=== PATIENT | male | born 1935 | race Caucasian/White ===

== ENCOUNTER → 2020-06-10 14:00 | Outpatient (CLI) | payer MEDICARE, OTHER, SELFPAY ==
--- NOTE | 2020-06-10 14:07 | DI.US.S_ITS ---
PROCEDURE: US SCROTUM INDICATIONS: TESTICULAR SWELLING TECHNIQUE: Real-time scanning was performed of the scrotum and testicles, with image documentation. Color and pulse Doppler interrogation was performed of both testicles. COMPARISON: [facility], CT, ABDOMEN W&WO CONTRAST, 09/28/2017, 10:55. FINDINGS: Right: Testicle is normal in size at 4.4 x 2.8 x 2.7 cm, and homogenous in echotexture. There is a 1.2 mm cyst in the epididymal head with mild internal echoes. Epididymis is normal in overall size and morphology. Moderate to large hydroceles. No varicoceles. Overlying scrotal skin is normal in thickness. Left: Testicle is normal in size at 3.8 x 3.4 x 2.3 cm, and homogeneous in echotexture. Epididymis is normal in overall size and morphology. There is a 6 mm complex cyst in the epididymal head. Moderate to large hydroceles. No varicoceles. Overlying scrotal skin is normal in thickness. There is a non reducible left inguinal hernia containing fat. The neck of the hernia measures 9 mm. Doppler: Color and pulse Doppler demonstrate normal and symmetric arterial flow in both testicles. IMPRESSION: 1. Normal testicles bilaterally. No testicular mass or findings to suggest testicular torsion. 2. Bilateral epididymal cysts. 3. [id number] hydroceles bilaterally. 4. Fat containing, non reducible left inguinal hernia. Dictated by: Mario Junior M.D. on 06/10/2020 at 16:41 Approved by: Mario Junior M.D. on 06/10/2020 at 16:47
== END ==
PROVIDERS: PCP Internal Medicine; Referring Provider Physician Assistant; Visit Provider Physician Assistant
DX: N50.89 Other specified disorders of the male genital organs (principal); N50.3 Cyst of epididymis; N43.3 Hydrocele, unspecified; K40.30 Unilateral inguinal hernia, with obstruction, without gangrene, not specified as recurrent
CPT/HCPCS: 76870

== ENCOUNTER 2020-12-25 12:35 | Emergency (ER) | payer MEDICARE, OTHER, SELFPAY ==
[2020-12-25] VITALS (8 sets, daily range): BP systolic 131–181; BP diastolic 70–101; PULSE 78–93; RESP 15–23; TEMP 36.4–36.6; O2SAT 97–98; BMI 30.4
[2020-12-25 12:59] LABS: WBC Urine None Seen (0-5/HPF)
[2020-12-25 13:36] LABS: Appearance Urine UA CLOUDY; Bilirubin Urine UA NEGATIVE (NEGATIVE); Color Urine UA YELLOW; Glucose Urine UA TRACE g/dL (Negative); Ketones Urine UA NEGATIVE (NEGATIVE); Leukocyte Esterase Urine UA NEGATIVE (NEGATIVE); Nitrite Urine UA NEGATIVE (Negative); Occult Blood Urine UA 3+ (Negative); Protein Urine UA 3+ (Negative); Specific Gravity Urine UA 1.025 (1.000-1.035); Urobilinogen Urine UA 0.2 E.U./dL (0.2)
[2020-12-25 13:45] LABS: Amorphous Sediment Urine 2+; Bacteria Urine Moderate (10-30); Culture Indicated Urine Cult Not Indicated; RBC Urine 10-30/HPF (0-5/HPF)
--- NOTE | 2020-12-25 15:57 | ED_ITS ---
HPI - Male Genitourinary General Chief complaint: Urogenital-Male Stated complaint: Back Pain, Lt Side. Kidney Problems Time Seen by Provider: 12/25/20 15:46 Source: patient Mode of arrival: Ambulatory Limitations: no limitations History of Present Illness HPI Narrative: Patient is an 85-year-old male history of coronary artery disease presenting today with left-sided back pain. He says sometimes it is radiating around to his front in his left lower quadrant. According to family they state that he was not quite himself yesterday and today having increased back pain. He denies any fever or chills no nausea or vomiting. He has no numbness or tingling in his lower extremities. No chest pain or shortness of breath. Related Data Home Medications Medication Instructions Recorded Confirmed nitroglycerin 6.5 mg 6.5 mg PO BID #0 10/07/12 06/10/20 capsule,extended release amlodipine 10 mg tablet 10 mg PO DAILY 06/10/20 06/10/20 metoprolol succinate 50 mg 50 mg PO DAILY 06/10/20 06/10/20 tablet,extended release 24 hr (Toprol XL) rivaroxaban 15 mg tablet (Xarelto) 15 mg PO DAILY 06/10/20 06/10/20 telmisartan 40 mg tablet 40 mg PO DAILY 06/10/20 06/10/20 Previous Rx's Medication Instructions Recorded triamcinolone acetonide 0.1 % 1 applic TOPICAL BID 14 Days #30 g 06/10/20 topical cream ciprofloxacin HCl 500 mg tablet 500 mg PO BID #14 tab 12/25/20 (Cipro) hydrocodone 5 mg-acetaminophen 325 1 tab PO Q6H PRN #10 tab 12/25/20 mg tablet Allergies Allergy/AdvReac Type Severity Reaction Status Date / Time cholera vaccine Allergy Unknown Verified 12/25/20 12:50 Review of Systems Review of Systems Narrative: GENERAL: Denies chills, fatigue, malaise, fever, sweats, travel HEENT: Denies sinus pain, ear pain, sore throat, difficulty swallowing, neck pain RESPIRATORY: Denies dyspnea, cough, wheezing, hemoptysis, sputum. CARDIOVASCULAR: Denies chest pain, palpitations, orthopnea, edema GASTROINTESTINAL: Denies nausea, vomiting, abdominal pain, diarrhea, constipation, melena. : Left flank pain MUSCULOSKELETAL: Denies weakness, joint pain, or bony pain SKIN: No rash, no erythema, no pruritus NEUROLOGIC: Denies weakness, dizziness, headache, numbness, change in speech, confusion PSYCHIATRIC: No concerning psychosocial issues. 12 point review of systems is negative except for those stated above and HPI Patient History Medical History Past medical history not known due to adoption Social History Smoking Status: Never smoker Smoking Status: Never smoker alcohol intake frequency: holidays/special occasions only Substance Use Type: does not use Exam Initial Vital Signs Initial Vital Signs: Vital Signs Temperature 97.9 F 12/25/20 12:50 Pulse Rate 78 12/25/20 12:50 Respiratory Rate 18 12/25/20 12:50 Blood Pressure 131/70 12/25/20 12:50 Pulse Oximetry 98 12/25/20 12:50 GENERAL: Alert pleasant 85-year-old male appears uncomfortable and in no acute distress. HEENT: Head atraumatic,EOMI, pupils reactive, face symmetric, moist mucous membranes CARDIOVASCULAR: Regular rate and rhythm without murmurs, rubs or gallops. RESPIRATORY: Breath sounds equal bilaterally, no wheezes rales or rhonchi. ABDOMEN: Soft, left lower quadrant pain no guarding or rebound BACK: No vertebral tenderness no step-off : Mild left CVA tenderness EXTREMITIES: Normal range of motion, no clubbing or edema. Neurovascularly intact NEUROLOGICAL: Alert and oriented x3.Normal gait and speech. SKIN: Warm, dry, no laceration, no petechiae, no rashes or lesions. Course Orders Ordered: ED Orders 12/25/20 12:57 Urinalysis and Microscopic Stat 12/25/20 15:57 CT kidney ureter bladder (KUB) Stat 12/25/20 16:19 EKG-12 Lead Stat 12/25/20 16:45 Complete Blood Count AUTO DIFF Stat Comprehensive Metabolic Panel Stat Lactate (Lactic Acid) Stat Lipase Stat Partial Thromboplastin Time Stat Procalcitonin Stat Prothrombin Time INR Stat Troponin & CK Cardiac Panel Stat 12/25/20 17:40 Blood Culture Stat Discontinued Medications Hydrocodone Bitart/Acetaminophen (Hydrocodone/Acet 5/325 Prepack) 1 bottle MISC SEEINSTR ONE Stop: 12/25/20 18:45 Last Admin: 12/25/20 18:58 Dose: 1 bottle Documented by: TARAN Sodium Chloride (Normal Saline 0.9%) 1,000 mls @ 150 mls/hr IV CONT OWEN Last Infusion: 12/25/20 18:19 Dose: 0 mls/hr Documented by: [email or web address] Admin: 12/25/20 16:30 Dose: 150 mls/hr Documented by: CTR.[email or web address] Levofloxacin (Levofloxacin 250 Mg Tablet) 500 mg PO NOW ONE Stop: 12/25/20 18:45 Last Admin: 12/25/20 18:58 Dose: 500 mg Documented by: KBROTEM Vital Signs Vital signs: Vital Signs - 8 hr 12/25/20 12:50 12/25/20 15:12 12/25/20 16:55 Temperature 97.9 F 97.6 F Pulse Rate 78 83 85 Respiratory Rate 18 18 Blood Pressure 131/70 154/79 H Pulse Oximetry 98 97 98 12/25/20 16:56 12/25/20 17:00 12/25/20 17:30 Temperature Pulse Rate 84 84 87 Respiratory Rate 17 18 23 Blood Pressure 147/83 H 151/82 H 165/79 H Pulse Oximetry 98 98 98 12/25/20 18:00 12/25/20 18:30 Temperature Pulse Rate 87 93 H Respiratory Rate 15 19 Blood Pressure 175/101 H 181/95 H Pulse Oximetry 98 97 MDM - Male Genitourinary Lab Data Result diagrams: 12/25/20 16:45 12/25/20 16:45 Labs: Lab Results 12/25/20 12/25/20 12/25/20 Range/Units 12:57 16:45 16:45 WBC 12.3 H (4.5-11.0) X10^3/uL RBC 5.61 (4.5-5.9) X10^6/uL Hgb 15.8 (13.5-17.5) g/dL Hct 47.9 (41-53) % MCV 85.4 (80-100) fL MCH 28.2 (26-34) PG MCHC 33.1 (30-36) % RDW 14.2 (11.6-14.8) % Plt Count 210 (150-400) X10^3/uL Neut % (Auto) 86.9 H (50-75) % Lymph % (Auto) 7.7 L (25-40) % Allen % (Auto) 5.0 (3-14) % Eos % (Auto) 0.1 L (2-4) % Baso % (Auto) 0.3 (0-2) % Neut # (Auto) 72439 H (6029-7914) /uL Lymph # (Auto) 1000 L (9401-4079) /uL Allen # (Auto) 600 (0-900) /uL Eos # (Auto) 0 (0-450) /uL Baso # (Auto) 0 (0-100) /uL PT 20.4 H (10.1-12.7) SECONDS INR 1.8 H (0.9-1.3) APTT 46 H (26.4-36.2) SECONDS Sodium (137-145) mmol/L Potassium (3.4-5.1) mmol/L Chloride (98-107) mmol/L Carbon Dioxide (22-32) mmol/L BUN (9-20) mg/dL Creatinine (0.66-1.25) mg/dL Estimated GFR (>60) mL/min BUN/Creatinine Ratio (6-22) Glucose (80-110) mg/dL Lactate (0.7-2.1) mmol/L Calcium (8.4-10.2) mg/dL Total Bilirubin (0.2-1.3) mg/dL AST (17-59) IU/L ALT (<50) IU/L Alkaline Phosphatase (38-126) U/L Total Creatine Kinase (55-170) U/L CK-MB (CK-2) CK-MB (CK-2) Rel Index Troponin I (0.01-0.034) ng/mL Total Protein (6.3-8.2) g/dL Albumin (3.5-5.0) g/dL Globulin (1.7-4.1) g/dL Albumin/Globulin Ratio (1.0-2.8) Lipase (23-300) U/L Procalcitonin (<0.5) ng/mL Urine Color Yellow Urine Appearance Cloudy Urine pH 5.0 (4.5-8.0) Ur Specific [place] 1.025 (1.000-1.035) Urine Protein 3+ H (Negative) Urine Glucose (UA) Trace H (Negative) g/dL Urine Ketones Negative (NEGATIVE) Urine Occult Blood 3+ H (Negative) Urine Nitrate Negative (Negative) Urine Bilirubin Negative (NEGATIVE) Urine Urobilinogen 0.2 (0.2) E.U./dL Ur Leukocyte Esterase Negative (NEGATIVE) Urine RBC 10-30/hpf H (0-5/HPF) Urine WBC None seen (0-5/HPF) Amorphous Sediment 2+ Urine Bacteria Moderate (10-30) H (None) Ur Culture Indicated? Cult not indicated 12/25/20 12/25/20 Range/Units 16:45 16:45 WBC (4.5-11.0) X10^3/uL RBC (4.5-5.9) X10^6/uL Hgb (13.5-17.5) g/dL Hct (41-53) % MCV (80-100) fL MCH (26-34) PG MCHC (30-36) % RDW (11.6-14.8) % Plt Count (150-400) X10^3/uL Neut % (Auto) (50-75) % Lymph % (Auto) (25-40) % Allen % (Auto) (3-14) % Eos % (Auto) (2-4) % Baso % (Auto) (0-2) % Neut # (Auto) (7985-7201) /uL Lymph # (Auto) (0257-5139) /uL Allen # (Auto) (0-900) /uL Eos # (Auto) (0-450) /uL Baso # (Auto) (0-100) /uL PT (10.1-12.7) SECONDS INR (0.9-1.3) APTT (26.4-36.2) SECONDS Sodium 141 (137-145) mmol/L Potassium 4.7 (3.4-5.1) mmol/L Chloride 109 H (98-107) mmol/L Carbon Dioxide 21 L (22-32) mmol/L BUN 31 H (9-20) mg/dL Creatinine 2.29 H (0.66-1.25) mg/dL Estimated GFR 27.4 L (>60) mL/min BUN/Creatinine Ratio 13.5 (6-22) Glucose 155 H (80-110) mg/dL Lactate 1.7 (0.7-2.1) mmol/L Calcium 9.6 (8.4-10.2) mg/dL Total Bilirubin 0.8 (0.2-1.3) mg/dL AST 20 (17-59) IU/L ALT 14 (<50) IU/L Alkaline Phosphatase 129 H (38-126) U/L Total Creatine Kinase 51 L (55-170) U/L CK-MB (CK-2) TNP CK-MB (CK-2) Rel Index TNP Troponin I < 0.012 (0.01-0.034) ng/mL Total Protein 8.3 H (6.3-8.2) g/dL Albumin 4.5 (3.5-5.0) g/dL Globulin 3.8 (1.7-4.1) g/dL Albumin/Globulin Ratio 1.2 (1.0-2.8) Lipase 234 (23-300) U/L Procalcitonin 0.08 (<0.5) ng/mL Urine Color Urine Appearance Urine pH (4.5-8.0) Ur Specific [place] (1.000-1.035) Urine Protein (Negative) Urine Glucose (UA) (Negative) g/dL Urine Ketones (NEGATIVE) Urine Occult Blood (Negative) Urine Nitrate (Negative) Urine Bilirubin (NEGATIVE) Urine Urobilinogen (0.2) E.U./dL Ur Leukocyte Esterase (NEGATIVE) Urine RBC (0-5/HPF) Urine WBC (0-5/HPF) Amorphous Sediment Urine Bacteria (None) Ur Culture Indicated? Imaging Data CT scan - abdomen/pelvis: Radiologist's Impression: PROCEDURE: CT KIDNEY URETER BLADDER (KUB) INDICATIONS: left flank pain TECHNIQUE: Axial sections were acquired from the lung bases to the pubic symphysis. Coronal and sagittal reformats were performed. For radiation dose reduction, the following was used: automated exposure control, adjustment of mA and/or kV according to patient size. COMPARISON: [facility], CT, ABDOMEN W&WO CONTRAST, 09/28/2017, 10:55. [facility] Ultrasound, US, US RENAL COMPLETE, 09/03/2017, 17:31. FINDINGS: Image quality: Excellent. Lung bases: Unremarkable. Heart: No significant findings. URINARY: Right Kidney: No stones or hydronephrosis. There is a septated cyst again seen involving the superior posterior aspect of the right kidney, which is similar to the prior study. Calcifications are again seen along the septations of this cyst. Right Ureter: No hydroureter. Left Kidney: Nonobstructing left-sided kidney stones are seen, which measure up to 7 mm. There is mild left-sided hydronephrosis. There is again seen a simple appearing water density cyst at the superior pole of the left kidney that measures appro ximately 8.5 cm. Smaller simple appearing left renal cysts are seen elsewhere. Left Ureter: There is a 2 mm obstructing stone seen within the distal left ureter, as on series 2, image 80. There is mild left-sided hydroureter. Bladder: Normal wall thickness. No stones. ABDOMEN: Liver: Unremarkable. Gallbladder: The gallbladder is partially collapsed at the time of this study. Biliary ducts: Unremarkable. Pancreas: Unremarkable. Spleen: Unremarkable. Adrenal Glands: Unremarkable. Stomach and Bowel: Stomach, small bowel loops, and colon are unremarkable. Colonic diverticulosis is seen, without findings of active diverticulitis. Peritoneum: No abnormal intraperitoneal fluid. No free air. Ventral Wall: No hernia. Abdominal Nodes: No enlarged retroperitoneal or mesenteric lymph nodes. Vessels: Aorta and inferior vena cava are normal in size. Atherosclerotic calcification is noted. PELVIS: Pelvic Organs: Prostatectomy changes are seen. Pelvic Nodes: Unremarkable. Miscellaneous: There are bilateral fat containing inguinal hernias, left larger than right. Bones: Focal L5-S1 degenerative change is seen. Milder degenerative changes ar e seen elsewhere. Incidental note is made of a limbus vertebral body involving the anterior superior portion of the L5 vertebral body. IMPRESSION: 2 mm obstructing stone seen at the left ureterovesicular junction, with associated mild left-sided hydroureter and hydronephrosis. Complex cyst with calcified septations at the superior pole of the right kidney. Simple appearing left renal cysts again seen. Incidental note is made of: Diverticulosis, without active diverticulitis Prostatectomy Bilateral fat containing inguinal hernias, left larger than right Limb[place] L5 vertebral body Focal L5-S1 degenerative change Dictated by: Jatinder Peguero M.D. on 12/25/2020 at 15:48 ECG Data Interpretation: Normal sinus rhythm rate 81 FL interval 140 QRS 70 QTC 399 pain MDM Narrative Medical decision making narrative: The patient is an 85-year-old male with known cardiac disease he is found to have left flank pain and obvious UTI. Blood work and CT do confirm that he has a 2 mm kidney stone. Pain is controlled in the ED he has not required anything for it. He is certainly requesting to go home. He has mild leukocytosis but overall does not seem septic. EKG and troponin are negative. Discharge Plan Departure Patient Disposition: Home Clinical Impression: Kidney stone on left side, Acute UTI Instructions: DI for Kidney Stones, DI for Urinary Tract Infection (UTI) Activity Restrictions/Additional Instructions: *You have been diagnosed with kidney stone and UTI *What to do: At this time you have a kidney stone it is 2 mm any will likely pass over the next 2-3 days. Pain can come and go. You also have small infection which she will be on antibiotics for. *Continue to take medications as directed-> SENT TO [facility] [place] 1 tablet every 6 hours only if needed for severe pain. You may also break it in half and take half 1 every 4-6 hours if you need to Cipro 500 tablet twice daily for 7 days *Follow up with your primary care provider in 2-3 days *Return to ER if you should have increasing pain inability to take medications persistent vomiting or any new, worsening or concerning symptoms CONTROLLED SUBSTANCE DISCHARGE (Narcotoic/benzodiazepine/Flexeril/Phenergan) 1. You have been prescribed narcotic medications, it does have acetaminophen/Tylenol/paracetamol in it, DO NOT TAKE MORE THAN 4,00mg in 24 hours of Tylenol. TRAMADOL DOES NOT CONTAIN TYLENOL 2. Please understand that we cannot provide further refills of narcotics, benzodiazepines or controlled substances through the ED and her pain management will need to be through your provider. 3. While on these medications you cannot drive or operate heavy machinery. 4. You cannot sign legal documents or perform any duties such as this. 5. As long as you're taking opiate pain medications he should also be taking a stool softener such as Colace, Dulcolax, MiraLAX or prune juice, to help avoid constipation. Prescriptions: New hydrocodone-acetaminophen 5-325 mg tablet 1 tab PO Q6H PRN (Reason: pain) Qty: 10 RF: 0 ciprofloxacin HCl [Cipro] 500 mg tablet 500 mg PO BID Qty: 14 RF: 0 No Action amlodipine 10 mg tablet 10 mg PO DAILY RF: 0 Xarelto 15 mg tablet 15 mg PO DAILY RF: 0 telmisartan 40 mg tablet 40 mg PO DAILY RF: 0 metoprolol succinate [Toprol XL] 50 mg tablet extended release 24 hr 50 mg PO DAILY RF: 0 triamcinolone acetonide 0.1 % cream 1 applic topical BID 14 Days Qty: 30 RF: 2 nitroglycerin 6.5 MG capsule, extended release 6.5 mg PO BID Qty: 0 RF: 0 Referrals: Ruby Staples MD [Primary Care Provider] -
[2020-12-25] MEDS: SODIUM CHLORIDE 0.9% 1,000 ML 150 ML IV (16:30)
[2020-12-25 17:00] LABS: Add Manual Diff / Slide Review NO; Basophils Absolute Auto 0 /uL (0-100); Basophils Percent Auto 0.3 % (0-2); Eosinophils Absolute Auto 0 /uL (0-450); Eosinophils Percent Auto 0.1 % (2-4); Hematocrit 47.9 % (41-53); Hemoglobin 15.8 g/dL (13.5-17.5); Lymphocytes Absolute Auto 1000 /uL (1100-4500); Lymphocytes Percent Auto 7.7 % (25-40); Mean Corpuscular HGB Conc 33.1 % (30-36); Mean Corpuscular Hemoglobin 28.2 PG (26-34); Mean Corpuscular Volume 85.4 fL (80-100); Monocytes Absolute Auto 600 /uL (0-900); Neutrophils Absolute Auto 10700 /uL (1500-7000); Neutrophils Percent Auto 86.9 % (50-75); Platelet Count 210 X10^3/uL (150-400); Red Blood Cell Count 5.61 X10^6/uL (4.5-5.9); Red Cell Distribution Width 14.2 % (11.6-14.8); White Blood Cell Count 12.3 X10^3/uL (4.5-11.0)
[2020-12-25 17:06] LABS: INR 1.8 (0.9-1.3); Prothrombin Time 20.4 SECONDS (10.1-12.7)
[2020-12-25 17:08] LABS: Lactate (Lactic Acid) 1.7 mmol/L (0.7-2.1); PTT Partial Thromboplastin Tim 46 SECONDS (26.4-36.2)
[2020-12-25 17:09] LABS: Alanine Aminotransferase 14 IU/L (<50); Albumin 4.5 g/dL (3.5-5.0); Albumin Globulin Ratio 1.2 (1.0-2.8); Alkaline Phosphatase 129 U/L (38-126); Aspartate Aminotransferase 20 IU/L (17-59); BUN Creatinine Ratio 13.5 (6-22); Bilirubin Total 0.8 mg/dL (0.2-1.3); Blood Urea Nitrogen 31 mg/dL (9-20); Calcium 9.6 mg/dL (8.4-10.2); Carbon Dioxide 21 mmol/L (22-32); Chloride 109 mmol/L (98-107); Creatine Kinase 51 U/L (55-170); Estimated Glomerular Filt Rate 27.4 mL/min (>60); Globulin 3.8 g/dL (1.7-4.1); Glucose 155 mg/dL (80-110); Lipase 234 U/L (23-300); Potassium 4.7 mmol/L (3.4-5.1); Sodium 141 mmol/L (137-145); Total Protein 8.3 g/dL (6.3-8.2)
[2020-12-25 17:11] LABS: HEMOLYSIS 62 (0-50)
[2020-12-25 17:21] LABS: Troponin I < 0.012 ng/mL (0.01-0.034)
[2020-12-25 17:26] LABS: Procalcitonin 0.08 ng/mL (<0.5)
[2020-12-25] MEDS: HYDROCODONE/ACET 5/325 PREPACK 1 BOTTLE MISC (18:58)
[2020-12-25] MEDS: levoFLOXacin 250 MG TABLET 500 MG PO (18:58)
== END 2020-12-25 18:52 | disposition home or self-care (01) ==
PROVIDERS: Emergency Provider Emergency Medicine; PCP Internal Medicine
DX: N20.0 Calculus of kidney (principal); N39.0 Urinary tract infection, site not specified; R03.0 Elevated blood-pressure reading, without diagnosis of hypertension; Z86.79 Personal history of other diseases of the circulatory system
CPT/HCPCS: 36415; 74176; 80053; 81001; 82550; 83605; 83690; 84145; 84484; 85025; 85610; 85730; 87040; 93005; 93010; 96360; 96361; 99284

== ENCOUNTER → 2021-06-29 14:02 | Outpatient (CLI) | payer MEDICARE, OTHER, SELFPAY ==
--- NOTE | 2021-06-29 14:06 | DI.CT.S_ITS ---
PROCEDURE: CT KIDNEY URETER BLADDER (KUB) INDICATIONS: Calculus of kidney TECHNIQUE: Axial sections were acquired from the lung bases to the pubic symphysis. Coronal and sagittal reformats were performed. For radiation dose reduction, the following was used: automated exposure control, adjustment of mA and/or kV according to patient size. COMPARISON: CT, ABDOMEN W&WO CONTRAST, 09/28/2017, 10:55. [facility], CT, CT KIDNEY URETER BLADDER (KUB), 12/25/2020, 16:22. FINDINGS: Image quality: Excellent. Lung bases: Mild bibasilar scars and atelectasis. Heart: Normal size. Severe coronary artery calcification. URINARY: Right Kidney: No stones or hydronephrosis. There is a large multilocular cyst measuring 8.4 x 9.5 x 8.7 cm, demonstrating internal septa (Bosniak category 2 F). Right Ureter: No hydroureter. Left Kidney: There are 2 nonobstructive stones in the inferior pole of the left kidney measuring 5 mm and 8 mm. No left hydronephrosis. Multiple simple appearing left renal cysts are present. The largest is in the superior pole measuring 7.7 x 7.5 x 7.7 cm. Left Ureter: No hydroureter. Bladder: Normal wall thickness. No stones. Prostate is surgically resected. ABDOMEN: Liver: Unremarkable. Gallbladder: Unremarkable. Biliary ducts: Unremarkable. Pancreas: Unremarkable. Spleen: Unremarkable. Adrenal Glands: Unremarkable. Stomach and Bowel: Stomach, small bowel loops, and colon are normal in caliber. Diverticulosis without diverticulitis. Moderate amount of stool in colon. Peritoneum: No abnormal intraperitoneal fluid. No free air. Ventral Wall: No hernia. Abdominal Nodes: No enlarged retroperitoneal or mesenteric lymph nodes. Vessels: Aorta and inferior vena cava are normal in size. There is severe atherosclerotic calcifications. PELVIS: Pelvic Organs: Unremarkable. Pelvic Nodes: Unremarkable. Miscellaneous: There is a moderate-sized fat containing left inguinal hernia. Note is made of moderate hydrocele in the right scrotum. Bones: Degenerative changes are noted in the lower thoracic spine and lumbar spine. IMPRESSION: 1. Nephrolithiasis of the left kidney with 2 nonobstructive stones in the inferior pole. No hydronephrosis. 2. A large Bosniak 2 F cyst in right kidney. Recommend CT follow-up in 12 months. 3. Diverticulosis without diverticulitis. 4. Prostatectomy. 5. A large fat containing left inguinal hernia. 6. Severe coronary artery and aortic atherosclerosis. Dictated by: Mario Junior M.D. on 06/29/2021 at 16:47 Approved by: Mario Junior M.D. on 06/29/2021 at 17:25
== END ==
PROVIDERS: PCP Internal Medicine; Referring Provider Internal Medicine Nephrology; Visit Provider Internal Medicine Nephrology
DX: N20.0 Calculus of kidney (principal); N28.1 Cyst of kidney, acquired; K57.90 Diverticulosis of intestine, part unspecified, without perforation or abscess without bleeding; K40.90 Unilateral inguinal hernia, without obstruction or gangrene, not specified as recurrent; I25.10 Atherosclerotic heart disease of native coronary artery without angina pectoris; I70.0 Atherosclerosis of aorta
CPT/HCPCS: 74176

== ENCOUNTER → 2021-09-02 12:24 | Outpatient (CLI) | payer MEDICARE, OTHER, SELFPAY ==
[2021-09-02 13:44] LABS: Add Manual Diff / Slide Review NO; Basophils Absolute Auto 0 /uL (0-100); Basophils Percent Auto 0.6 % (0-2); Eosinophils Absolute Auto 200 /uL (0-450); Eosinophils Percent Auto 2.1 % (2-4); Hematocrit 45.1 % (41-53); Hemoglobin 15.4 g/dL (13.5-17.5); Lymphocytes Absolute Auto 1900 /uL (1100-4500); Lymphocytes Percent Auto 23.1 % (25-40); Mean Corpuscular HGB Conc 34.1 % (30-36); Mean Corpuscular Hemoglobin 28.6 PG (26-34); Mean Corpuscular Volume 83.8 fL (80-100); Monocytes Absolute Auto 800 /uL (0-900); Monocytes Percent Auto 9.4 % (3-14); Neutrophils Absolute Auto 5200 /uL (1500-7000); Neutrophils Percent Auto 64.8 % (50-75); Platelet Count 215 X10^3/uL (150-400); Red Blood Cell Count 5.39 X10^6/uL (4.5-5.9); Red Cell Distribution Width 14.4 % (11.6-14.8)
[2021-09-02 13:50] LABS: Hemoglobin A1C% w Est Avg Glu 6.7 % (4.0-6.0)
[2021-09-02 14:00] LABS: Appearance Urine UA CLEAR; Bilirubin Urine UA NEGATIVE (NEGATIVE); Color Urine UA YELLOW; Glucose Urine UA TRACE g/dL (Negative); Ketones Urine UA NEGATIVE (NEGATIVE); Leukocyte Esterase Urine UA NEGATIVE (NEGATIVE); Nitrite Urine UA NEGATIVE (Negative); Occult Blood Urine UA 1+ (Negative); Protein Urine UA 3+ (Negative); Specific Gravity Urine UA 1.025 (1.000-1.035); Urobilinogen Urine UA 0.2 E.U./dL (0.2)
[2021-09-02 14:13] LABS: Amorphous Sediment Urine 2+; Bacteria Urine Occasional (0-1); Culture Indicated Urine Specimen Cultured; RBC Urine 0-1/HPF (0-5/HPF); Squamous Epithelial Cell Urine 1-5 /HPF (0-5/HPF); WBC Urine 0-1/HPF (0-5/HPF)
[2021-09-02 14:15] LABS: Alanine Aminotransferase 12 IU/L (<50); Albumin 4.4 g/dL (3.5-5.0); Albumin Globulin Ratio 1.3 (1.0-2.8); Alkaline Phosphatase 114 U/L (38-126); Aspartate Aminotransferase 16 IU/L (17-59); BUN Creatinine Ratio 15.4 (6-22); Bilirubin Total 0.5 mg/dL (0.2-1.3); Blood Urea Nitrogen 38 mg/dL (9-20); Calcium 8.8 mg/dL (8.4-10.2); Carbon Dioxide 23 mmol/L (22-32); Chloride 107 mmol/L (98-107); Estimated Glomerular Filt Rate 25.3 mL/min (>60); Globulin 3.5 g/dL (1.7-4.1); Glucose 217 mg/dL (80-110); HEMOLYSIS < 15 (0-50); Phosphorous 3.3 mg/dL (2.3-3.7); Potassium 4.8 mmol/L (3.4-5.1); Sodium 142 mmol/L (137-145); Total Protein 7.9 g/dL (6.3-8.2)
[2021-09-02 16:05] LABS: Creatinine Urine Random 233.3 mg/dL
[2021-09-02 16:53] LABS: Microalbumi Creatinin Ratio Ur 1873.1 ug/mg CR (<30)
[2021-09-03 05:52] LABS: Parathyroid Hormone Int 76 pg/mL (15-65)
== END ==
PROVIDERS: PCP Internal Medicine; Referring Provider Internal Medicine Nephrology; Visit Provider Internal Medicine Nephrology
DX: E11.9 Type 2 diabetes mellitus without complications (principal); N17.9 Acute kidney failure, unspecified
CPT/HCPCS: 36415; 80053; 80069; 81001; 82043; 82570; 83036; 83970; 85025; 87086

== ENCOUNTER 2021-09-06 15:19 | Inpatient (IN) | payer MEDICARE, OTHER, SELFPAY ==
[2021-09-06] VITALS (20 sets, daily range): BP systolic 125–182; BP diastolic 71–101; PULSE 81–105; RESP 15–24; TEMP 36.6–36.8; O2SAT 91–98; BMI 29.9; BMI 29.1
--- NOTE | 2021-09-06 15:25 | DI.RAD.S_ITS ---
PROCEDURE: XR CHEST 1V INDICATIONS: chest pain TECHNIQUE: One view of the chest was acquired. COMPARISON: [facility], CT, CT KIDNEY URETER BLADDER (KUB), 06/29/2021, 14:08. [facility], CR, CHEST 1 VIEW, 02/21/2016, 14:05. FINDINGS: Surgical changes and devices: None. Lungs and pleura: Reduced lung volumes. No consolidation, pleural effusions or pneumothorax. Mediastinum: Mediastinal contours appear normal. The cardiac silhouette is enlarged, partially exaggerated by technique. Bones and chest wall: No suspicious bony lesions. Overlying soft tissues appear unremarkable. IMPRESSION: No acute cardiopulmonary abnormality. The previously demonstrated nodular density overlying the right lower lung zone is not well seen. Consider CT imaging for further evaluation as clinically warranted. Dictated by: Petr Gaytan M.D. on 09/06/2021 at 16:55 Approved by: Petr Gaytan M.D. on 09/06/2021 at 16:58
--- NOTE | 2021-09-06 15:55 | PC.NURSE ---
Addendum entered by Marine Sagastume R.N. 09/06/21 19:19: pt stated he was having chest pain. son reports he also c/o headache at one point. daughter arrived and states pt is at baseline mentation. Original Note: son reports both parents have hx of dementia. poor historians.
[2021-09-06 15:59] LABS: Add Manual Diff / Slide Review NO; Basophils Absolute Auto 0 /uL (0-100); Basophils Percent Auto 0.4 % (0-2); Eosinophils Absolute Auto 0 /uL (0-450); Eosinophils Percent Auto 0.4 % (2-4); Hematocrit 46.4 % (41-53); Hemoglobin 15.7 g/dL (13.5-17.5); Lymphocytes Absolute Auto 2100 /uL (1100-4500); Mean Corpuscular HGB Conc 33.7 % (30-36); Mean Corpuscular Hemoglobin 28.5 PG (26-34); Mean Corpuscular Volume 84.5 fL (80-100); Monocytes Absolute Auto 900 /uL (0-900); Monocytes Percent Auto 8.4 % (3-14); Neutrophils Absolute Auto 7300 /uL (1500-7000); Neutrophils Percent Auto 70.8 % (50-75); Platelet Count 229 X10^3/uL (150-400); Red Blood Cell Count 5.49 X10^6/uL (4.5-5.9); Red Cell Distribution Width 14.3 % (11.6-14.8); White Blood Cell Count 10.4 X10^3/uL (4.5-11.0)
[2021-09-06 16:21] LABS: Alanine Aminotransferase 14 IU/L (<50); Albumin 4.7 g/dL (3.5-5.0); Albumin Globulin Ratio 1.1 (1.0-2.8); Alkaline Phosphatase 116 U/L (38-126); Aspartate Aminotransferase 16 IU/L (17-59); BUN Creatinine Ratio 13.8 (6-22); Bilirubin Total 0.5 mg/dL (0.2-1.3); Blood Urea Nitrogen 33 mg/dL (9-20); Calcium 9.2 mg/dL (8.4-10.2); Carbon Dioxide 22 mmol/L (22-32); Chloride 110 mmol/L (98-107); Creatine Kinase 34 U/L (55-170); Estimated Glomerular Filt Rate 26.1 mL/min (>60); Globulin 4.2 g/dL (1.7-4.1); Glucose 319 mg/dL (80-110); HEMOLYSIS < 15 (0-50); Lipase 372 U/L (23-300); Magnesium 2.3 mg/dL (1.6-2.3); Potassium 4.6 mmol/L (3.4-5.1); Sodium 143 mmol/L (137-145); Total Protein 8.9 g/dL (6.3-8.2)
[2021-09-06 16:31] LABS: Troponin I < 0.012 ng/mL (0.01-0.034)
--- NOTE | 2021-09-06 18:22 | ED_ITS ---
HPI - Chest Pain General Chief Complaint: Chest Pain Stated Complaint: possible heart attack Time Seen by Provider: 09/06/21 17:13 Source: patient and family Mode of arrival: Wheelchair Limitations: altered mental status Limitations: altered mental status History of Present Illness HPI narrative: The patient developed chest discomfort at home prior to her coming here. His son was with him. He has dementia. He started rubbing his head and indicate he has chest pain. He had a similar episode 2 days ago. He has known CAD. His son gave him 2 sublingual nitro, the pain was relieved. Upon arrival he is asymptomatic. Due to his dementia, he has no recall of the chest pain that occurred earlier. His son reports he has experienced multiple small heart attacks in the past. He is currently in no distress. He has no headache, sore throat. He has no cough or dyspnea. He has no chest pain. He has no abdominal complaints. There is no obvious orthopnea or edema. His PCM as at the [facility] in [place]. He sees Dr. Li, a local gear nicker. He has comorbidities of known CAD, chronic stable angina, PAF, he is anticoagulated he has hypertension, type 2 diabetes, and CKD stage 4. Related Data Home Medications Medication Instructions Recorded Confirmed nitroglycerin 6.5 mg 6.5 mg PO BID #0 10/07/12 09/06/21 capsule,extended release amlodipine 10 mg tablet 10 mg PO DAILY 06/10/20 09/06/21 metoprolol succinate 50 mg 50 mg PO DAILY 06/10/20 09/06/21 tablet,extended release 24 hr (Toprol XL) telmisartan 40 mg tablet 40 mg PO DAILY 06/10/20 09/06/21 rivaroxaban 15 mg tablet (Xarelto) 15 mg PO QPM 09/06/21 09/06/21 Allergies Allergy/AdvReac Type Severity Reaction Status Date / Time cholera vaccine Allergy Unknown Verified 09/06/21 15:29 Review of Systems Review of Systems Narrative: The patient cannot remember the chest pain that led to his ER visit. His son gives some medical history, the patient is unreliable for medical history Patient History Medical History (Updated 09/07/21 @ 03:19 by Shai Amin MD) Advanced dementia Angina pectoris, unspecified CAD (coronary artery disease) of artery bypass graft Chronic kidney disease (CKD) stage G4/A1, severely decreased glomerular filtration rate (GFR) between 15-29 mL/min/1.73 square meter and albuminuria creatinine ratio less than 30 mg/g Hypertension associated with chronic kidney disease due to type 2 diabetes mellitus Hypertension associated with chronic kidney disease due to type 2 diabetes amaris itus Testicular swelling Surgical History Hx of cardiac catheterization Family History Father Heart disease Brother Heart disease Brother Heart disease Daughter Heart disease Other Hyperlipidemia Social History household members: significant other and family Smoking Status: Former smoker Smoking Status: Never smoker alcohol intake frequency: holidays/special occasions only Substance Use Type: does not use Exam Initial Vital Signs Initial Vital Signs: Vital Signs Temperature 98.3 F 09/06/21 15:23 Pulse Rate 104 H 09/06/21 15:23 Respiratory Rate 18 09/06/21 15:23 Blood Pressure 181/101 H 09/06/21 15:23 Pulse Oximetry 97 09/06/21 15:23 Const General: cooperative, comfortable and No acute distress Orientation: Orientation (Orientation to person only) [facility] Head: normal to inspection, normocephalic and atraumatic Nose: external nose normal Face and sinus: normal facial exam Mouth: oral mucosae normal Eyes General: appearance normal, both eyes and all related structures Alignment and Position: alignment normal Neck Neck: No JVD and other (No bruit) Thyroid: thyroid normal Chest Chest: normal inspection of the chest Resp Auscultation: clear to auscultation bilaterally Cardio Rate: regular rate Rhythm: regular rhythm Heart Sounds: S1 normal, S2 normal, no click, no gallops and no murmurs GI Inspection: normal to inspection Palpation: soft, No guarding, No hernia, No pulsatile mass and No tender Back/Spine/Pelvis Back: normal to inspection Skin General: no rashes or lesions noted Neuro General: patient alert, patient awake, oriented (Person) and no focal motor deficits Extrem General: normal to inspection, full ROM, no pedal edema and no calf tenderness Psych Appearance: disheveled Course Course Course Narrative: The patient's 1st troponin level was normal. A repeat troponin level was increasing, indicating the non-STEMI. A 3rd troponin level had increased more. He remains asymptomatic he is anticoagulated with Xarelto. Was given a single dose of aspirin as well as atorvastatin 80 mg p.o. he already takes metoprolol. The patient's clinical situation was discussed with his family members. Cardiac catheterization was discussed. I talked to Dr. Alves, on-call Cardiology, about the patient. The patient has significant renal failure. He is not a good candidate for the cathode washer. Patient has a POLST indicating DNR status. Family members agreed the patient should be managed clinically, concurring this would be the patient's wishes. The patient was admitted to this facility under the care hospitalist, JOY Mcfadden. His vitals are stable, he is asymptomatic at the time of admission. Orders Ordered: ED Orders 09/06/21 18:07 Troponin I Stat 09/06/21 20:00 Troponin I Stat 09/06/21 20:47 EKG-12 Lead Stat 09/06/21 21:45 COVID19 -Nasal swab/Pre-Proc Stat Acetaminophen (Acetaminophen 325 Mg Tablet) 650 mg PO Q6HR PRN PRN Reason: Fever/Mild Pain (1-3) Amlodipine Besylate (Amlodipine 5 Mg Tablet) 10 mg PO DAILY OWEN Aspirin (Aspirin Ec 81 Mg Tablet) 81 mg PO DAILY OWEN Atorvastatin Calcium (Atorvastatin 20 Mg Tablet) 40 mg PO BEDTIME OWEN Sodium Chloride (Normal Saline 0.9%) 1,000 mls @ 100 mls/hr IV CONT OWEN Last Admin: 09/07/21 00:33 Dose: 100 mls/hr Documented by: AHARSTA Losartan Potassium (Losartan 50 Mg Tablet) 50 mg PO BID PENDING SALE TO [facility] Metoprolol Succinate (Metoprolol Er 50 Mg Tablet) 50 mg PO DAILY PENDING SALE TO [facility] Morphine Sulfate (Morphine 2 Mg/Ml Inj) 2 mg IV Q5MIN PRN PRN Reason: Chest Pain Naloxone HCl (Naloxone 0.4 Mg/Ml Vial) 0.2 mg IV Q2MIN PRN PRN Reason: Opiate Reversal Nitroglycerin (Nitroglycerin 0.4 Mg Sl Tab) 0.4 mg SL [id number] PRN PRN Reason: Chest Pain Ondansetron HCl (Ondansetron 4 Mg/2 Ml Inj) 4 mg IV Q6HR PRN PRN Reason: Nausea And Vomiting Rivaroxaban (Rivaroxaban 10 Mg Tablet) 15 mg PO QPM PENDING SALE TO [facility] Discontinued Medications Aspirin (Aspirin 81 Mg Chew Tab) 324 mg PO NOW ONE Stop: 09/06/21 21:54 Last Admin: 09/06/21 22:26 Dose: 324 mg Documented by: JASBIR Atorvastatin Calcium (Atorvastatin 20 Mg Tablet) 80 mg PO NOW ONE Stop: 09/06/21 21:55 Last Admin: 09/06/21 22:26 Dose: 80 mg Documented by: JASBIR Morphine Sulfate (Morphine 2 Mg/Ml Inj) 2 mg IV Q5MIN PRN PRN Reason: Chest Pain Nitroglycerin (Nitroglycerin 0.4 Mg Sl Tab) 0.4 mg SL [id number] PRN PRN Reason: Chest Pain Vital Signs Vital signs: Vital Signs - 8 hr 09/06/21 19:00 09/06/21 19:30 09/06/21 20:00 Pulse Rate 94 H 91 H 89 Respiratory Rate 20 18 15 Blood Pressure 149/86 H 153/90 H 153/90 H Pulse Oximetry 97 97 97 09/06/21 20:30 09/06/21 21:00 09/06/21 21:30 Pulse Rate 88 85 81 Respiratory Rate 21 18 22 Blood Pressure 161/91 H 171/94 H 163/88 H Pulse Oximetry 97 97 97 09/06/21 22:00 Pulse Rate 83 Respiratory Rate 24 Blood Pressure 145/87 H Pulse Oximetry 97 MDM - Chest Pain Lab Data Result diagrams: 09/06/21 15:49 09/06/21 15:49 Labs: Lab Results 09/06/21 09/06/21 09/06/21 Range/Units 15:49 15:49 18:07 WBC 10.4 (4.5-11.0) X10^3/uL RBC 5.49 (4.5-5.9) X10^6/uL Hgb 15.7 (13.5-17.5) g/dL Hct 46.4 (41-53) % MCV 84.5 (80-100) fL MCH 28.5 (26-34) PG MCHC 33.7 (30-36) % RDW 14.3 (11.6-14.8) % Plt Count 229 (150-400) X10^3/uL Neut % (Auto) 70.8 (50-75) % Lymph % (Auto) 20.0 L (25-40) % [place] % (Auto) 8.4 (3-14) % Eos % (Auto) 0.4 L (2-4) % Baso % (Auto) 0.4 (0-2) % Neut # (Auto) 7300 H (8521-5555) /uL Lymph # (Auto) 2100 (4331-2510) /uL [place] # (Auto) 900 (0-900) /uL Eos # (Auto) 0 (0-450) /uL Baso # (Auto) 0 (0-100) /uL Sodium 143 (137-145) mmol/L Potassium 4.6 (3.4-5.1) mmol/L Chloride 110 H (98-107) mmol/L Carbon Dioxide 22 (22-32) mmol/L BUN 33 H (9-20) mg/dL Creatinine 2.39 H (0.66-1.25) mg/dL Estimated GFR 26.1 L (>60) mL/min BUN/Creatinine Ratio 13.8 (6-22) Glucose 319 H D (80-110) mg/dL Calcium 9.2 (8.4-10.2) mg/dL Magnesium 2.3 (1.6-2.3) mg/dL Total Bilirubin 0.5 (0.2-1.3) mg/dL AST 16 L (17-59) IU/L ALT 14 (<50) IU/L Alkaline Phosphatase 116 (38-126) U/L Total Creatine Kinase 34 L (55-170) U/L CK-MB (CK-2) TNP CK-MB (CK-2) Rel Index TNP Troponin I < 0.012 0.411 H* (0.01-0.034) ng/mL NT-Pro-B Natriuret Pep (<450) pg/mL Total Protein 8.9 H (6.3-8.2) g/dL Albumin 4.7 (3.5-5.0) g/dL Globulin 4.2 H (1.7-4.1) g/dL Albumin/Globulin Ratio 1.1 (1.0-2.8) Lipase 372 H (23-300) U/L SARS-CoV-2 (PCR) (Negative) 09/06/21 09/06/21 09/06/21 Range/Units 20:00 20:00 21:45 WBC (4.5-11.0) X10^3/uL RBC (4.5-5.9) X10^6/uL Hgb (13.5-17.5) g/dL Hct (41-53) % MCV (80-100) fL MCH (26-34) PG MCHC (30-36) % RDW (11.6-14.8) % Plt Count (150-400) X10^3/uL Neut % (Auto) (50-75) % Lymph % (Auto) (25-40) % [place] % (Auto) (3-14) % Eos % (Auto) (2-4) % Baso % (Auto) (0-2) % Neut # (Auto) (1003-5411) /uL Lymph # (Auto) (3257-4205) /uL [place] # (Auto) (0-900) /uL Eos # (Auto) (0-450) /uL Baso # (Auto) (0-100) /uL Sodium (137-145) mmol/L Potassium (3.4-5.1) mmol/L Chloride (98-107) mmol/L Carbon Dioxide (22-32) mmol/L BUN (9-20) mg/dL Creatinine (0.66-1.25) mg/dL Estimated GFR (>60) mL/min BUN/Creatinine Ratio (6-22) Glucose (80-110) mg/dL Calcium (8.4-10.2) mg/dL Magnesium (1.6-2.3) mg/dL Total Bilirubin (0.2-1.3) mg/dL AST (17-59) IU/L ALT (<50) IU/L Alkaline Phosphatase (38-126) U/L Total Creatine Kinase (55-170) U/L CK-MB (CK-2) CK-MB (CK-2) Rel Index Troponin I 1.430 H* (0.01-0.034) ng/mL NT-Pro-B Natriuret Pep 349 (<450) pg/mL Total Protein (6.3-8.2) g/dL Albumin (3.5-5.0) g/dL Globulin (1.7-4.1) g/dL Albumin/Globulin Ratio (1.0-2.8) Lipase (23-300) U/L SARS-CoV-2 (PCR) Negative (Negative) Imaging Data Chest x-ray: Radiologist's Impression: No acute cardiopulmonary abnormality. ECG Data Attestation: I personally reviewed and interpreted this ECG as follows: (Sinus tachycardia at 105 beats per minute. No ectopy. No acute ST T wave changes. Normal intervals. No concerning ST changes. EKG 2.: Unchanged.) Critical Care Time Critical Care Time Critical Care Time: Yes Total Critical Care Time: 50 Attestation: Critical care time included initial assessment of the patient, review of past medical records, review of EKG, lab and radiology data. The situation was discussed with the patient and members. Cardiology and the hospitalist were consult. Discharge Plan Departure Patient Disposition: Admitted as Observation Clinical Impression: NSTEMI (non-ST elevated myocardial infarction), Advanced dementia, Chronic renal disease, stage IV, Diabetes, Paroxysmal A-fib, Hypertension Admit Date/Time: 09/06/21 22:20 Admit Provider: Sarah Mcfadden
[2021-09-06 19:03] LABS: Troponin I 0.411 ng/mL (0.01-0.034)
[2021-09-06 22:04] LABS: COVID19 -Nasal RAPID Negative (Negative)
[2021-09-06] MEDS: ASPIRIN 81 MG CHEW TAB 324 MG PO (22:26)
[2021-09-06] MEDS: ATORVASTATIN 20 MG TABLET 80 MG PO (22:26)
--- NOTE | 2021-09-06 23:46 | P.HP_ITS ---
History of Present Illness History of Present Illness Date Patient Seen: 09/06/21 Time Patient Seen: 23:15 Chief complaint: possible heart attack Narrative: Yahir is an 85 y.o. male with CAD having undergone 2 diagnostic cardiac catheterizations, atrial fibrillation anticoagulated on Xarelto, essential hypertension, CKD stage IV, and advanced dementia was in his usual state of health has a several day history of complaining of chest pain and also pointing to his head. History is provided by his daughter and POA, stating he has very limited short term memory. Per ED nurse's note he had been complaining of left sided chest pain for about 2 hours which has been intermittent for the past 2 days. He took 2 doses of nitroglycerin with no effect. When he initially presented to the ED, his first troponin was normal, 2 hour troponin increased to 0.411, two hours later, it almost tripled to 1.430. Per the ED provider, given the patient's current renal disease and advanced dementia, two cardiologists he spoke to recommended medical management. Chest x ray indicated enlarged cardiac silhouette exaggerated by technique. Patient is afebrile, blood pressure 154/87, heart rate 87, respiratory rate 18, oxygen saturation of 98% on room air, he weighs 92 kg with a BMI of 30. CBC is unremarkable, platelet count is 229, sodium is 143, potassium 4.6, chloride 110, bicarb 22, BUN 33, creatinine 2.39, GFR is 26.1, glucose is 319, liver enzymes w ithin normal limits, his last troponin is 8:00 p.m. was 1.430, lipase is mildly elevated at 372, and COVID-19 PCR is negative. Patient History Medical History Advanced dementia Chronic kidney disease (CKD) stage G4/A1, severely decreased glomerular filtration rate (GFR) between 15-29 mL/min/1.73 square meter and albuminuria creatinine ratio less than 30 mg/g Testicular swelling Surgical History (Updated 09/07/21 @ 00:06 by JOY Rocha) Hx of cardiac catheterization Family & Social History Family History Father Heart disease Brother Heart disease Brother Heart disease Daughter Heart disease Other Hyperlipidemia Social History: household members significant other,family Prior Living Arrangements House Safety & Behavioral: Feels Safe in Current Yes Environment Been Physically Hurt or No Threatened By a Person Suicidal Ideation Description None Suicide Plan Description No Plan Tobacco & Substance use: Smoking Status Former smoker alcohol intake frequency holiday/special occasion Substance Use Type does not use Meds Home Medications and Allergies Home Medications Medication Instructions Recorded Confirmed Type nitroglycerin 6.5 mg 6.5 mg PO BID #0 10/07/12 09/06/21 History capsule,extended release amlodipine 10 mg tablet 10 mg PO DAILY 06/10/20 09/06/21 History metoprolol succinate 50 mg 50 mg PO DAILY 06/10/20 09/06/21 History tablet,extended release 24 hr (Toprol XL) telmisartan 40 mg tablet 40 mg PO DAILY 06/10/20 09/06/21 History rivaroxaban 15 mg tablet (Xarelto) 15 mg PO QPM 09/06/21 09/06/21 History Allergies Allergy/AdvReac Type Severity Reaction Status Date / Time cholera vaccine Allergy Unknown Verified 09/06/21 15:29 Review of Systems Review of Systems ROS: Yes unobtainable due to mental status Exam Vital Signs (past 8 hours): - 09/06/21 16:00 09/06/21 16:30 09/06/21 16:37 Temperature Pulse Rate 96 H 97 H 100 H Respiratory Rate 22 19 Blood Pressure 144/75 H 142/78 H Pulse Oximetry 97 97 97 09/06/21 17:00 09/06/21 17:30 09/06/21 18:00 Temperature Pulse Rate 94 H 98 H 94 H Respiratory Rate 22 22 21 Blood Pressure 126/71 129/82 141/79 H Pulse Oximetry 97 98 98 09/06/21 18:30 09/06/21 19:00 09/06/21 19:30 Temperature Pulse Rate 94 H 94 H 91 H Respiratory Rate 20 20 18 Blood Pressure 125/85 149/86 H 153/90 H Pulse Oximetry 98 97 97 09/06/21 20:00 09/06/21 20:30 09/06/21 21:00 Temperature Pulse Rate 89 88 85 Respiratory Rate 15 21 18 Blood Pressure 153/90 H 161/91 H 171/94 H Pulse Oximetry 97 97 97 09/06/21 21:30 09/06/21 22:00 09/06/21 22:30 Temperature Pulse Rate 81 83 89 Respiratory Rate 22 24 24 Blood Pressure 163/88 H 145/87 H Pulse Oximetry 97 97 97 09/06/21 22:31 09/06/21 23:00 Temperature 97.8 F Pulse Rate 86 87 Respiratory Rate 19 18 Blood Pressure 158/91 H 154/87 H Pulse Oximetry 97 98 Oxygen Delivery Method Room Air Oxygen Flow Rate 0 Narrative Exam Narrative: Gen: Alert, oriented, well-developed 88 y.o. male, pleasantly confused HEENT: normocephalic, atraumatic, conjunctiva clear, sclera non-icteric, oral m ucosa pink and moist Neck: supple, full ROM, no JVD, trachea is midline Resp: Lungs CTA, non-labored breathing CV: RRR, no murmur or rubs Abd: soft, non-tender, normoactive BTs Skin: no lesions or rashes, dry and intact Neuro: Alert to self only, impaired memor, Speech clear and coherent. Extremities: No edema, moves all 4 extremities, is ambulatory with assistance, negative Shauna?s sign Psyche: normal mood and affect. Objective Labs Result Diagrams: 09/06/21 15:49 09/06/21 15:49 Labs: Laboratory Results - last 24 hr 09/06/21 09/06/21 09/06/21 15:49 15:49 18:07 WBC 10.4 RBC 5.49 Hgb 15.7 Hct 46.4 MCV 84.5 MCH 28.5 MCHC 33.7 RDW 14.3 Plt Count 229 Neut % (Auto) 70.8 Lymph % (Auto) 20.0 L [place] % (Auto) 8.4 Eos % (Auto) 0.4 L Baso % (Auto) 0.4 Neut # (Auto) 7300 H Lymph # (Auto) 2100 [place] # (Auto) 900 Eos # (Auto) 0 Baso # (Auto) 0 Sodium 143 Potassium 4.6 Chloride 110 H Carbon Dioxide 22 BUN 33 H Creatinine 2.39 H Estimated GFR 26.1 L BUN/Creatinine Ratio 13.8 Glucose 319 H D Calcium 9.2 Magnesium 2.3 Total Bilirubin 0.5 AST 16 L ALT 14 Alkaline Phosphatase 116 Total Creatine Kinase 34 L CK-MB (CK-2) TNP CK-MB (CK-2) Rel Index TNP Troponin I < 0.012 0.411 H* Total Protein 8.9 H Albumin 4.7 Globulin 4.2 H Albumin/Globulin Ratio 1.1 Lipase 372 H SARS-CoV-2 (PCR) 09/06/21 09/06/21 20:00 21:45 WBC RBC Hgb Hct MCV MCH MCHC RDW Plt Count Neut % (Auto) Lymph % (Auto) [place] % (Auto) Eos % (Auto) Baso % (Auto) Neut # (Auto) Lymph # (Auto) [place] # (Auto) Eos # (Auto) Baso # (Auto) Sodium Potassium Chloride Carbon Dioxide BUN Creatinine Estimated GFR BUN/Creatinine Ratio Glucose Calcium Magnesium Total Bilirubin AST ALT Alkaline Phosphatase Total Creatine Kinase CK-MB (CK-2) CK-MB (CK-2) Rel Index Troponin I 1.430 H* Total Protein Albumin Globulin Albumin/Globulin Ratio Lipase SARS-CoV-2 (PCR) Negative Assessment & Plan Assessment & Plan narrative: Yahir Stratton is admitted to the inpatient service further medical management of a NSTEMI. 1. Chest pain, NSTEMI, acute, present on admission * Echo in am * Start ASA 81 mg and clopidrgrel 75 mg po daily * EKG does not indicate show ischemic changes * Continue home dose of rivaroxaban 15 mg po daily * Trend troponin until it trends downward * May need to consult w/Dr. Barron in the am. 2. Stage IV acute on chronic kidney injury, present on admission * His admission creatinine is 2.39 which is slightly above his baseline however he did have a creatinine of 2.46 on September 02. * Will start gentle hydration with normal saline at 100 mL/hour. * I have requested that nursing notify his blocking machine operator, Dr. Alexander's office that he has been admitted to this hospital. 3. Essential Hypertension * Continue Amlodipine 10 mg and substitute telmasartan with losartan 100 mg po daily 4. HLD * Lipid panel, pending * Start atorvastatin 40 mg po at bedtime 5. Risk stratification * Fasting lipid panel scheduled for 0500 labs * A1c is pending, current glucose is over 300 * TSH reflex to free T3 VTE Prophylaxis: Wells risk score 1.5 Bilateral SCDs Patient is currently anticoagulated on rivaroxaban. Patient is admitted to the inpatient service due to the severity of disease, risks of further disease progression and this stay is expected to exceed 2 mi dnights. FEN: IV fluids: NS at 100 ml/hour, diet: heart healthy, labs: CBC, C/BMP, liver enzymes, Mag, PT/INR Consultants None Dispo: probable discharge back to home. Code status: DNR/DNI as discussed with the patient's daughter Stacy Gilbert and JEMAL. [X] I have utilized all available immediate resources to obtain, update, or review of the patient's current medications COVID-19 COVID-19 status: Negative Result date/Date tested (Pos, Neg/Pending): 09/07/21 Time Spent With Patient Critical Care time: I spent a total of [] minutes of critical care time on this patient's care today; this time is exclusive of procedural time. Scores Wells' Criteria for PE Clinical signs and symptoms of DVT: No PE is #1 Dx or equally likely: No Heart rate > 100: No Immobilization at least 3 days or surg in previous 4 weeks: Yes History of PE or DVT: No Hemoptysis: No Malignancy w/Treatment within 6 months or palliative: No Wells' PE Score total: 1.5 Quality AMI Clinical Trial Participant: No Contraindications to PCI Procedure: Contraindicated Contraindication for No Fibrinolytic Therapy: Contraindicated VTE Deep Vein Thrombosis/Pulmonary Embolism Present on Admission: No MIPS - Admit I confirm the patient?s Advance Care Plan is present, Code status is documented, Surrogate decision maker is in patient?s record [If Yes, STOP here]: Yes MIPS - DC The patient has current or prior documentation of left ventricular ejection fraction (LVEF) less than 40%, or moderate or severely depressed left ventricular systolic function.: No
[2021-09-06 23:51] LABS: NT-proBNP (BNP-Adult 18+) 349 pg/mL (<450)
[2021-09-07] VITALS (9 sets, daily range): BP systolic 143–168; BP diastolic 78–90; PULSE 71–99; RESP 17–18; TEMP 37.1–37.3; O2SAT 97–98
--- NOTE | 2021-09-07 | DI.ECHO.S_ITS ---
[facility]---------+ [facility] +---------+ : : [address] [address] : : : : [id number] : : : : Phone: [phone] Echocardiogram Report + + :Name: YANY COLE Study Date: 09/07/2021 Height: 69 in : :[facility] ReadingLocation: Weight: 202 lb : : Gender: Male BSA: 2.1 m2 : :: 1935 Age: 85 yrs BP: 158/91 mmHg: :Reason For Study: NSTEMI : :Ordering Physician: Sarmad TAYLORformed By: Marlene Newton : :Referring: RADHA TAYLOR : + + Interpretation Summary The ejection fraction is estimated to be 55-60%. There are no focal wall motion abnormalities. Diastolic parameters suggest probable normal left ventricular diastolic function and normal filling pressures. The right ventricle is normal in size and function. There is trace aortic regurgitation. There is mild tricuspid regurgitation. PASP is approximately 35 to 40 mmHg. Compared to the prior study dated 02/22/2016, PA pressure has increased. Procedure: A two-dimensional transthoracic echocardiogram with color flow and Doppler was performed. The study quality was technically adequate. Comparison is made with the echocardiogram of 02/22/2016. The patient was in sinus rhythm with heart rates between 70-82 bpm during the exam. Left Ventricle: The left ventricle is normal in size and wall thickness. The ejection fraction is estimated to be 55-60%. There are no focal wall motion abnormalities. Diastolic parameters suggest probable normal left ventricular diastolic function and normal filling pressures. Right Ventricle: The right ventricle is normal in size and function. Atria: The left atrial size is normal. Right atrial size is normal. There is no Doppler evidence for an interatrial shunt. Mitral Valve: The mitral valve is normal in structure and function. There is trace mitral regurgitation. Aortic Valve: The aortic valve is trileaflet. The aortic valve opens well. There is no aortic valve stenosis. There is trace aortic regurgitation. Tricuspid Valve: The tricuspid valve is normal in structure and function. There is mild tricuspid regurgitation. PASP is approximately 35 to 40 mmHg. Pulmonic Valve: The pulmonic valve leaflets are thin and pliable; valve motion is normal. There is no pulmonic valvular regurgitation. Great Vessels: The aortic root is normal size. The ascending aorta is at the upper limits of normal in size. The IVC is of normal diameter and collapses greater than 50% with a sniff. This suggests a low right atrial pressure of 3 mm Hg. Pericardium/ Pleura There is no pericardial effusion. There is no pleural effusion. MMode/2D Measurements & Calculations LVIDd: 4.1 cm LVOT diam: 1.9 cm LVIDs: 2.9 cm Ao root diam: 3.4 cm FS: 28.1 % asc Aorta Diam: 3.5 cm EPSS: 0.85 cm Ao Arch Diam (Prox Trans): 2.7 cm IVSd: 0.93 cm LVPWd: 0.87 cm LV thomas. diameter/BSA (cm/m^2): 2.0 LV sys. diameter/BSA (cm/m^2): 1.4 LA A2 area: 16.6 cm2 RA long axis: 5.4 cm LA A4 area: 14.1 cm2 RA area: 15.4 cm2 LA length (vol): 5.4 cm RA vol: 37.4 ml LA vol: 36.7 ml RA : 18.0 ml/m2 LA vol index: 17.7 ml/m2 IVC diam: 1.4 cm RVD1 (basal): 3.3 cm RVD2 (mid): 2.6 cm TAPSE: 1.8 cm Doppler Measurements & Calculations Ao V2 max: 139.5 cm/sec LVOT Max Mau: 108.9 cm/sec Ao V2 mean: 100.4 cm/sec LV V1 max P.7 mmHg Ao max P.8 mmHg LV V1 VTI: 21.5 cm Ao mean P.5 mmHg JAYY(I,D): 2.1 cm2 Ao V2 VTI: 28.3 cm JAYY(V,D): 2.2 cm2 sev ratio: 0.76 JAYY indexed to BSA (cm^2/m^2): 1.0 MV E max mau: 63.7 cm/sec TR max mau: 285.6 cm/sec MV A max mau: 95.4 cm/sec TR max P.6 mmHg MV E/A: 0.67 PA V2 max: 86.6 cm/sec Med Peak E' Mau: 5.2 cm/sec PA V2 mean: 53.2 cm/sec E/E' med: 12.3 PA mean P.3 mmHg Lat Peak E' Mau: 6.0 cm/sec PA pr(Accel): 32.8 mmHg E/E' lat: 10.5 E/e' average: 11.4 MV dec time: 0.26 sec SV(LVOT): 59.9 ml Reading Physician:01:36 PM
[2021-09-07 00:18] LABS: Appearance Urine UA CLEAR; Bilirubin Urine UA NEGATIVE (NEGATIVE); Color Urine UA YELLOW; Glucose Urine UA TRACE g/dL (Negative); Ketones Urine UA NEGATIVE (NEGATIVE); Leukocyte Esterase Urine UA NEGATIVE (NEGATIVE); Nitrite Urine UA NEGATIVE (Negative); Occult Blood Urine UA 2+ (Negative); Protein Urine UA 2+ (Negative); Specific Gravity Urine UA 1.025 (1.000-1.035); Urobilinogen Urine UA 0.2 E.U./dL (0.2)
[2021-09-07 00:28] LABS: Bacteria Urine None Seen; Hyaline Casts Urine 0-1/LPF; RBC Urine 1-5/HPF (0-5/HPF); WBC Urine None Seen (0-5/HPF)
[2021-09-07 00:29] LABS: Culture Indicated Urine Cult Not Indicated
[2021-09-07] MEDS: SODIUM CHLORIDE 0.9% 1,000 ML 100 ML IV (00:33)
--- NOTE | 2021-09-07 00:44 | PC.ADMIT ---
Addendum entered by Denisse Kim R.N. 09/07/21 03:56: Pulling off nurse monitoring and resistive to efforts to keep it on. Has already pulled out 2 IV's and has had 1:1 staff in room since 013. Daughter, Stacy, contacted and will come back in to sit with patient. Original Note: Patient admitted at 2300 to room 220 from ER per stretcher but transferred into bed with SBA. Is oriented to name and birthdate only. Breath sounds CTA with RA sat of 98%; denies SOB but daughter reports he gets winded with exertion. Patient denied chest pain; telemetry reading was SR. BP elevated at 154/87 and has been trending high. Denied nausea. BT present and abdomen is soft. Denied dysuria with urination and daughter reports patient is continent. Did get up with SBA and voided in urinal; UA sent to lab. Is able to move himself in bed. Bilateral calf SCD's were applied. Denied any pain/discomfort. Fall risk score is high and bed alarm is activated. [employer] phone doesnt always work FYI CALL [phone] [facility] Admission Note: The patient,Yahir Stratton,85 y/o, was given written information regarding hospital policies, unit procedures and contact persons. Patient's smoking status: Former smoker. Vital Signs - 8 hr 09/06/21 17:00 09/06/21 17:30 09/06/21 18:00 Temperature Pulse Rate 94 H 98 H 94 H Respiratory Rate 22 22 21 Blood Pressure 126/71 129/82 141/79 H Pulse Oximetry 97 98 98 09/06/21 18:30 09/06/21 19:00 09/06/21 19:30 Temperature Pulse Rate 94 H 94 H 91 H Respiratory Rate 20 20 18 Blood Pressure 125/85 149/86 H 153/90 H Pulse Oximetry 98 97 97 09/06/21 20:00 09/06/21 20:30 09/06/21 21:00 Temperature Pulse Rate 89 88 85 Respiratory Rate 15 21 18 Blood Pressure 153/90 H 161/91 H 171/94 H Pulse Oximetry 97 97 97 09/06/21 21:30 09/06/21 22:00 09/06/21 22:30 Temperature Pulse Rate 81 83 89 Respiratory Rate 22 24 24 Blood Pressure 163/88 H 145/87 H Pulse Oximetry 97 97 97 09/06/21 22:31 09/06/21 23:00 Temperature 97.8 F Pulse Rate 86 87 Respiratory Rate 19 18 Blood Pressure 158/91 H 154/87 H Pulse Oximetry 97 98
[2021-09-07 02:21] LABS: Hemoglobin A1C% w Est Avg Glu 6.9 % (4.0-6.0)
[2021-09-07 05:01] LABS: Add Manual Diff / Slide Review NO; Basophils Absolute Auto 0 /uL (0-100); Basophils Percent Auto 0.3 % (0-2); Eosinophils Absolute Auto 100 /uL (0-450); Eosinophils Percent Auto 1.6 % (2-4); Hematocrit 43.6 % (41-53); Hemoglobin 14.8 g/dL (13.5-17.5); Lymphocytes Absolute Auto 1500 /uL (1100-4500); Lymphocytes Percent Auto 19.6 % (25-40); Mean Corpuscular Hemoglobin 28.6 PG (26-34); Mean Corpuscular Volume 84.2 fL (80-100); Monocytes Absolute Auto 800 /uL (0-900); Monocytes Percent Auto 10.4 % (3-14); Neutrophils Absolute Auto 5300 /uL (1500-7000); Neutrophils Percent Auto 68.1 % (50-75); Platelet Count 182 X10^3/uL (150-400); Red Blood Cell Count 5.18 X10^6/uL (4.5-5.9); Red Cell Distribution Width 13.8 % (11.6-14.8); White Blood Cell Count 7.8 X10^3/uL (4.5-11.0)
[2021-09-07 05:14] LABS: Alanine Aminotransferase 12 IU/L (<50); Albumin 3.9 g/dL (3.5-5.0); Albumin Globulin Ratio 1.1 (1.0-2.8); Alkaline Phosphatase 100 U/L (38-126); Aspartate Aminotransferase 22 IU/L (17-59); BUN Creatinine Ratio 13.5 (6-22); Bilirubin Total 0.5 mg/dL (0.2-1.3); Bilirubin Unconjugated 0.4 mg/dL (0.0-1.1); Blood Urea Nitrogen 28 mg/dL (9-20); Calcium 8.6 mg/dL (8.4-10.2); Carbon Dioxide 21 mmol/L (22-32); Chloride 113 mmol/L (98-107); Cholesterol 204 mg/dL (140-199); Estimated Glomerular Filt Rate 30.8 mL/min (>60); Globulin 3.4 g/dL (1.7-4.1); Glucose 139 mg/dL (80-110); HDL Cholesterol 23 mg/dL (40-60); HEMOLYSIS < 15 (0-50); LDL Cholesterol Calculated 135 mg/dL (<100); Magnesium 2.1 mg/dL (1.6-2.3); Potassium 4.3 mmol/L (3.4-5.1); Sodium 142 mmol/L (137-145); Total Protein 7.3 g/dL (6.3-8.2); Triglycerides 230 mg/dL (35-150)
[2021-09-07 05:47] LABS: Thyroid Stimulating Hormone 1.67 uIU/mL (0.47-4.68)
[2021-09-07] MEDS: AMLODIPINE 5 MG TABLET 10 MG PO (08:13)
[2021-09-07] MEDS: LOSARTAN 50 MG TABLET PO ×2 (08:14→20:06)
[2021-09-07] MEDS: METOPROLOL ER 50 MG TABLET PO (08:15)
[2021-09-07] MEDS: ASPIRIN EC 81 MG TABLET PO (08:15)
--- NOTE | 2021-09-07 13:06 | PM.PN.1 ---
Subjective Subjective Date Patient Seen: 09/07/21 Time Patient Seen: 08:00 Interval history: He is comfortable. He has no chest pain or shortness of breath. Exam Vital Signs (past 8 hours): - 09/07/21 08:14 09/07/21 08:15 09/07/21 09:14 Temperature 99.0 F Pulse Rate 73 73 71 Respiratory Rate 18 Blood Pressure 157/87 H 157/87 H 157/87 H Pulse Oximetry 97 Oxygen Delivery Method Room Air Oxygen Flow Rate 0 Narrative Exam Narrative: GEN: no acute distress HEENT: moist mucous membranes, PERRL NECK: trachea midline, no JVD CV: regular rate and rhythm, no murmurs PULM: clear bilaterally ABD: soft, nontender, nondistended, no organomegaly EXT: warm and well perfused with no edema NEURO: no focal deficits, pleasantly confused Objective Labs Result Diagrams: 09/07/21 04:32 09/07/21 04:32 Labs: Laboratory Results - last 24 hr 09/06/21 09/06/21 09/06/21 15:49 15:49 18:07 WBC 10.4 RBC 5.49 Hgb 15.7 Hct 46.4 MCV 84.5 MCH 28.5 MCHC 33.7 RDW 14.3 Plt Count 229 Neut % (Auto) 70.8 Lymph % (Auto) 20.0 L Ashley % (Auto) 8.4 Eos % (Auto) 0.4 L Baso % (Auto) 0.4 Neut # (Auto) 7300 H Lymph # (Auto) 2100 Ashley # (Auto) 900 Eos # (Auto) 0 Baso # (Auto) 0 Sodium 143 Potassium 4.6 Chloride 110 H Carbon Dioxide 22 BUN 33 H Creatinine 2.39 H Estimated GFR 26.1 L BUN/Creatinine Ratio 13.8 Glucose 319 H D Hemoglobin A1c Calcium 9.2 Magnesium 2.3 Total Bilirubin 0.5 Conjugated Bilirubin Unconjugated Bilirubin AST 16 L ALT 14 Alkaline Phosphatase 116 Total Creatine Kinase 34 L CK-MB (CK-2) TNP CK-MB (CK-2) Rel Index TNP Troponin I < 0.012 0.411 H* NT-Pro-B Natriuret Pep Total Protein 8.9 H Albumin 4.7 Globulin 4.2 H Albumin/Globulin Ratio 1.1 Triglycerides Cholesterol LDL Cholesterol, Calc HDL Cholesterol Lipase 372 H TSH Urine Color Urine Appearance Urine pH Ur Specific [place] Urine Protein Urine Glucose (UA) Urine Ketones Urine Occult Blood Urine Nitrate Urine Bilirubin Urine Urobilinogen Ur Leukocyte Esterase Urine RBC Urine WBC Urine Bacteria Hyaline Casts Ur Culture Indicated? SARS-CoV-2 (PCR) 09/06/21 09/06/21 09/06/21 20:00 20:00 21:45 WBC RBC Hgb Hct MCV MCH MCHC RDW Plt Count Neut % (Auto) Lymph % (Auto) Ashley % (Auto) Eos % (Auto) Baso % (Auto) Neut # (Auto) Lymph # (Auto) Ashley # (Auto) Eos # (Auto) Baso # (Auto) Sodium Potassium Chloride Carbon Dioxide BUN Creatinine Estimated GFR BUN/Creatinine Ratio Glucose Hemoglobin A1c Calcium Magnesium Total Bilirubin Conjugated Bilirubin Unconjugated Bilirubin AST ALT Alkaline Phosphatase Total Creatine Kinase CK-MB (CK-2) CK-MB (CK-2) Rel Index Troponin I 1.430 H* NT-Pro-B Natriuret Pep 349 Total Protein Albumin Globulin Albumin/Globulin Ratio Triglycerides Cholesterol LDL Cholesterol, Calc HDL Cholesterol Lipase TSH Urine Color Urine Appearance Urine pH Ur Specific [place] Urine Protein Urine Glucose (UA) Urine Ketones Urine Occult Blood Urine Nitrate Urine Bilirubin Urine Urobilinogen Ur Leukocyte Esterase Urine RBC Urine WBC Urine Bacteria Hyaline Casts Ur Culture Indicated? SARS-CoV-2 (PCR) Negative 09/07/21 09/07/21 09/07/21 00:00 02:00 02:00 WBC RBC Hgb Hct MCV MCH MCHC RDW Plt Count Neut % (Auto) Lymph % (Auto) Ashley % (Auto) Eos % (Auto) Baso % (Auto) Neut # (Auto) Lymph # (Auto) Ashley # (Auto) Eos # (Auto) Baso # (Auto) Sodium Potassium Chloride Carbon Dioxide BUN Creatinine Estimated GFR BUN/Creatinine Ratio Glucose Hemoglobin A1c 6.9 H Calcium Magnesium Total Bilirubin Conjugated Bilirubin Unconjugated Bilirubin AST ALT Alkaline Phosphatase Total Creatine Kinase CK-MB (CK-2) CK-MB (CK-2) Rel Index Troponin I 2.690 H* NT-Pro-B Natriuret Pep Total Protein Albumin Globulin Albumin/Globulin Ratio Triglycerides Cholesterol LDL Cholesterol, Calc HDL Cholesterol Lipase TSH Urine Color Yellow Urine Appearance Clear Urine pH 5.0 Ur Specific [place] 1.025 Urine Protein 2+ H Urine Glucose (UA) Trace H Urine Ketones Negative Urine Occult Blood 2+ H Urine Nitrate Negative Urine Bilirubin Negative Urine Urobilinogen 0.2 Ur Leukocyte Esterase Negative Urine RBC 1-5/hpf Urine WBC None seen Urine Bacteria None seen Hyaline Casts 0-1/lpf Ur Culture Indicated? Cult not indicated SARS-CoV-2 (PCR) 09/07/21 09/07/21 09/07/21 04:32 04:32 04:32 WBC 7.8 RBC 5.18 Hgb 14.8 Hct 43.6 MCV 84.2 MCH 28.6 MCHC 34.0 RDW 13.8 Plt Count 182 Neut % (Auto) 68.1 Lymph % (Auto) 19.6 L Ashley % (Auto) 10.4 Eos % (Auto) 1.6 L Baso % (Auto) 0.3 Neut # (Auto) 5300 Lymph # (Auto) 1500 Ashley # (Auto) 800 Eos # (Auto) 100 Baso # (Auto) 0 Sodium 142 Potassium 4.3 Chloride 113 H Carbon Dioxide 21 L BUN 28 H Creatinine 2.07 H Estimated GFR 30.8 L BUN/Creatinine Ratio 13.5 Glucose 139 H D Hemoglobin A1c Calcium 8.6 Magnesium 2.1 Total Bilirubin 0.5 Conjugated Bilirubin 0.0 Unconjugated Bilirubin 0.4 AST 22 ALT 12 Alkaline Phosphatase 100 Total Creatine Kinase CK-MB (CK-2) CK-MB (CK-2) Rel Index Troponin I NT-Pro-B Natriuret Pep Total Protein 7.3 Albumin 3.9 Globulin 3.4 Albumin/Globulin Ratio 1.1 Triglycerides 230 H Cholesterol 204 H LDL Cholesterol, Calc 135 H HDL Cholesterol 23 L Lipase TSH 1.67 Urine Color Urine Appearance Urine pH Ur Specific [place] Urine Protein Urine Glucose (UA) Urine Ketones Urine Occult Blood Urine Nitrate Urine Bilirubin Urine Urobilinogen Ur Leukocyte Esterase Urine RBC Urine WBC Urine Bacteria Hyaline Casts Ur Culture Indicated? SARS-CoV-2 (PCR) 09/07/21 09:05 WBC RBC Hgb Hct MCV MCH MCHC RDW Plt Count Neut % (Auto) Lymph % (Auto) Ashley % (Auto) Eos % (Auto) Baso % (Auto) Neut # (Auto) Lymph # (Auto) Ashley # (Auto) Eos # (Auto) Baso # (Auto) Sodium Potassium Chloride Carbon Dioxide BUN Creatinine Estimated GFR BUN/Creatinine Ratio Glucose Hemoglobin A1c Calcium Magnesium Total Bilirubin Conjugated Bilirubin Unconjugated Bilirubin AST ALT Alkaline Phosphatase Total Creatine Kinase CK-MB (CK-2) CK-MB (CK-2) Rel Index Troponin I 2.500 H* NT-Pro-B Natriuret Pep Total Protein Albumin Globulin Albumin/Globulin Ratio Triglycerides Cholesterol LDL Cholesterol, Calc HDL Cholesterol Lipase TSH Urine Color Urine Appearance Urine pH Ur Specific [place] Urine Protein Urine Glucose (UA) Urine Ketones Urine Occult Blood Urine Nitrate Urine Bilirubin Urine Urobilinogen Ur Leukocyte Esterase Urine RBC Urine WBC Urine Bacteria Hyaline Casts Ur Culture Indicated? 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 Stratton was admitted after having chest pain, found to have an NSTEMI 1. Acute NSTEMI -ordered for ECHO -hold aspirin, continue statin -continue rivaroxaban -troponin downtrending, no need to continue to trend further -ED discussed with cardiology and patient is a poor interventional candidate, family understands and agress with medical management -has known history of CAD 2. JOHNNY on CKD stage 4 -creatinine improved with IV fluids -continue to monitor creatinine daily -stop IV fluids 3. Hypertension -continue amlodipine, and ARB 4. Hyperlipidemia -ordered atorvastatin Dispo: likely discharge home tomorrow Time Spent With Patient Critical Care time: I spent a total of [] minutes of critical care time on this patient's care today; this time is exclusive of procedural time. Quality AMI Clinical Trial Participant: No Contraindications to PCI Procedure: Contraindicated Contraindication for No Fibrinolytic Therapy: Contraindicated VTE Deep Vein Thrombosis/Pulmonary Embolism Present on Admission: No
--- NOTE | 2021-09-07 16:10 | CM.IDA ---
Initial DCP Assessment Note Pt is an 85 yo male, resident of [place], arrives w/chest pain and found to have NSTEMI. PMH includes advanced dementia. PCP: Ruby Staples Payer: [employer] Reviewed chart, pt discussed in multidisciplinary rounds this morning. Dr Hernandez expects patient will remain admitted through today, DC likely w/in 24-48 hrs. Patient lives w/spouse and family in [place], supportive dtr Stacy here today to assist in patient care; family expects to bring patient home upon DC. Likely no need for HH; will assess upon DC w/family No needs expected from DC planning team although will remain available in case this changes before DC. JOAQUIM Maldonado Discharge Planning/Care Management CM Discharge Assessment Start: 09/07/21 15:54 Freq: Status: Active Protocol: Document 09/07/21 15:54 ROMELIA (Rec: 09/07/21 16:10 ROMELIA [id number]) Discharge Planning Assessment Assigned Budget Clerk JOAQUIM Hagen Advance Directives? Yes Advance Directives on File Yes History Provided By Family Member,Medical Record Prior Living Arrangements House Household Members significant other,family Type of transportation used prior to Relies on Others admit Independent with ADL's No Is patient alert and oriented? No Needs Assistance With Bathing,Grooming,Meal Prep, Toileting,Managing Medications ,Home Chores / Shopping Barriers to Discharge No Comment Return home w/family upon DC; r/o need for HH vs other resource needs Discharge Plan Home Transportation Arrangement Family pov Referrals Initiated None needed Additional Comment At this time
[2021-09-07] MEDS: RIVAROXABAN 10 MG TABLET 15 MG PO (17:29)
[2021-09-07] MEDS: ATORVASTATIN 20 MG TABLET 40 MG PO (20:05)
[2021-09-07] MEDS: SODIUM CHLORIDE 0.9% FLUSH 10 ML IV (20:06)
[2021-09-07] MEDS: diphenhydrAMINE 25 MG TABLET PO (20:06)
--- NOTE | 2021-09-07 21:12 | PC.NURSE ---
Addendum entered by Denisse Kim R.N. 09/08/21 06:34: weight appears to have decreased by > 2kg but admit weight was 89.5 and weight today was 89.2; uncertain why it is showing as weight from ER in previous weight field. Addendum entered by Denisse Kim R.N. 09/07/21 23:31: At 2120 patient's bed alarm going off and found patient walking in room. Patient very confused and upset. Daughter reports she woke when patient had gotten out of bed and now stating he needed to get out of here. Pulled director of cardiac cath lab off. Attempted to reorient and redirect without success. Patient states this is his place and we are intruders here to steal from him. Frequent outbursts of profanity and threatening to hit staff. Trying to push staff out of room and shut door. Security called. Patient took recliner in room and pushed it forcefully into tray table knocking his water glass off and spilling water ion floor. Patient walking through water but refused to allow staff to change his socks. Unable to reason with patient for [address] Rodriguez apprised of situation and order received for Haldol but unable to get near patient to attempt to administer it. Every time patient sat down and staff approached he would get to his feet and not allow anyone close to him. Distrusting of all attempts to calm him down. Several staff made attempts to engage him in conversation and finally started discussing old cars of which patient had rebuilt multiple cars in the past and patient gradually able to be redirected and proceeded to calm down. After most of staff left room patient reported seeing lizards on floor by closet door. Asked this RN to get that thing off the wall on top of closet door. Took everything off the top to show him nothing was there but he continued to insist and made attempts to swipe at wall. At present patient allowed staff to change his gown and slippers and replace telemetry. Original Note: Patient is oriented only to self and birthdate. Breath sounds CTA with RA sat of 98%. HRR but 2000 telemetry reading showing SA. Denied any chest pain and/or SOB. Denied nausea. BT present and abdomen is soft. Voiding per urinal; denies dysuria. Is able to move himself in bed. Provided SBA when out of bed for safety. Is forgetful and impulsive; has pulled director of cardiac cath lab off x1 so far this shift. Has been attempting to get out of bed by himself stating he needs to go to bed; when redirected states this isn't my bed. Daughter rooming in with patient. Again refused SCD's. Medicated with Benadryl for sleep. Fall risk score is high and bed alarm is activated.
[2021-09-08 08:10] VITALS: BP 153/92; PULSE 78
[2021-09-08] MEDS: LOSARTAN 50 MG TABLET PO (08:10)
[2021-09-08 08:11] VITALS: BP 153/92; PULSE 78
[2021-09-08] MEDS: AMLODIPINE 5 MG TABLET 10 MG PO (08:11)
[2021-09-08] MEDS: METOPROLOL ER 50 MG TABLET PO (08:11)
[2021-09-08] MEDS: SODIUM CHLORIDE 0.9% FLUSH 10 ML IV (08:12)
[2021-09-08 09:18] VITALS: BP 153/92; PULSE 78; RESP 19; TEMP 37.2; O2SAT 98
--- NOTE | 2021-09-08 20:43 | P.DS_ITS ---
History of Present Illness History of Present Illness Chief complaint: possible heart attack Narrative: Per admitting provider: Yahir is an 85 y.o. male with CAD having undergone 2 diagnostic cardiac catheterizations, atrial fibrillation anticoagulated on Xarelto, essential hypertension, CKD stage IV,? and advanced dementia was in his usual state of health has a several day history of complaining of chest pain and also pointing to his head. History is provided by his daughter and POA, stating he has very limited short term memory. Per ED nurse's note he had been complaining of left sided chest pain for about 2 hours which has been intermittent for the past 2 days. He took 2 doses of nitroglycerin with no effect. When he initially presented to the ED, his first troponin was normal, 2 hour troponin increased to 0.411, two hours later, it almost tripled to 1.430.? Per the ED provider, given the patient's current renal disease and advanced dementia, two cardiologists he spoke to recommended medical management.? Chest xray indicated enlarged cardiac?silhouette exaggerated by technique.? Patient is afebrile, blood pressure 154/87, heart rate 87, respiratory rate 18, oxygen saturation of 98% on room air, he weighs 92 kg with a BMI of 30.? CBC is unremarkable, platelet count is 229, sodium is 143, potassium 4.6, chloride 110, bicarb 22, BUN 33, creatinine 2.39, GFR is 26.1, glucose is 319, liver enzymes within normal limits, his last troponin is 8:00 p.m. was 1.430, lipase is mildly elevated at 372, and COVID-19 PCR is negative. Discharge Providers Provider Date of admission: 09/06/21 22:20 Discharge Date: 09/08/21 Primary care physician: Ruby Staples MD Consults: 09/06/21 23:40 Consult to Sales Consultant Residential Manager Routine Comment: additional help at home with care. Discharge provider: Gregorio Hernandez MD Summary Hospital Course Discharge Diagnosis: 1. Acute NSTEMI 2. JOHNNY on CKD stage 4 3. Hypertension 4. Hyperlipidemia 5. Dementia 6. Atrial fibrillation Hospital Course: Mr. Stratton was admitted with chest pain and found to have an NSTEMI. In the hospital he remained asymptomatic. His troponin peaked over 2, but he remained quite well appearing. He had an ECHO showed showed preserved EF with no acute abnormalities. Discussion was had with cardiology and family and given his poor renal function, age, and dementia it was thought he was not an appropriate candidate for cardiac cath. He was medically managed and started on a statin. Aspirin was discussed with family, but at time of discharge was not continued given he was already anticoagulated on xarelto and there is hesitance to have him with his advancing dementia be on two blood thinning medications. Family will follow up with PCP and cardiology to further discuss medical optimization of his cardiac disease. Exam Vital Signs (past 8 hours): Oxygen Delivery Method Room Air Oxygen Flow Rate 0 Narrative Exam Narrative: GEN: no acute distress HEENT: moist mucous membranes, PERRL NECK: trachea midline, no JVD CV: regular rate and rhythm, no murmurs PULM: clear bilaterally ABD: soft, nontender, nondistended, no organomegaly EXT: warm and well perfused with no edema NEURO: no focal deficits, pleasantly confused Objective Labs Result Diagrams: 09/07/21 04:32 09/07/21 04:32 [facility] Medical History (Updated 09/07/21 @ 03:19 by Shai Amin MD) Advanced dementia Angina pectoris, unspecified CAD (coronary artery disease) of artery bypass graft Chronic kidney disease (CKD) stage G4/A1, severely decreased glomerular filtration rate (GFR) between 15-29 mL/min/1.73 square meter and albuminuria creatinine ratio less than 30 mg/g 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 Stratton came in to the hospital with a heart attack. He did well with treatment with medications. An ultrasound showed he maintained good cardiac function. He was discharged home newly started on a cholesterol medication. Discharge orders & Medications Prescriptions: New atorvastatin 40 mg tablet 40 mg PO BEDTIME Qty: 30 0RF Continued amlodipine 10 mg tablet 10 mg PO DAILY 0RF telmisartan 40 mg tablet 40 mg PO DAILY 0RF metoprolol succinate [Toprol XL] 50 mg tablet extended release 24 hr 50 mg PO DAILY 0RF nitroglycerin 6.5 MG capsule, extended release 6.5 mg PO BID Qty: 0 0RF Xarelto 15 mg Tablet 15 mg PO QPM 0RF Rx Instructions: must administer with evening meal Follow up/Referrals: Ruby Staples MD [Primary Care Provider] - Diet/Activity/Treatments Diet: Diet as Tolerated Visit Report/Discharge Packet Instructions: DI for Heart Attack Discharge Data Primary Care Provider: Ruby Staples Quality AMI Clinical Trial Participant: No Contraindications to PCI Procedure: Contraindicated Contraindication for No Fibrinolytic Therapy: Contraindicated VTE Deep Vein Thrombosis/Pulmonary Embolism Present on Admission: No
--- NOTE | 2021-09-09 09:06 | CM.DPNOTE ---
DC Note Late Entry This STRICKLER ATTENDANT requested at bedside by dtr Stacy Gilbert P# [phone] yesterday to review outpatient, moth exterminator care resources w/she and patient. Patient sitting up in hospital chair, dressed. Patient clearly unable to track this conversation however was calm and agreeable throughout Dtr Stacy explains her brother lives on their property and helps as much as possible. Patient/spouse both have dementia, patient no longer drives. Stacy describes a challenging arrangement, one in which patient's spouse, Stacy's mom, is very resistant to receiving care and/or leaving their home to move into a care facility Patient/spouse have one healthcare consulting manager that works 2 hours daily M-F. That cg provides mostly assist w/chores, errands, driving etc. Both patient/spouse have become increasingly resistant to bathing per dtr This STRICKLER ATTENDANT suggested increasing these cg hours if it's available and dtr explained patient/spouse have been resistant to anything that costs more. Dtr Stacy is DPOA and also has access to patient's bank account. Supported dtr, explained that she is doing all she can at this time and to continue to encourage her parents to increase care giving in order to support them as they age in place. Explained that if either of her parents end up in a crisis situation and need immediate facility placement, dtr should be prepared to access funds as this will be a private cost Provided Senior Resource Guide, discusses VA benefits, [facility], [facility] vs [facility], in home care vs facility care. Dtr requested services, covered by [facility], w/no agency preference. d/t caseload demands 4.7.22, was unable to complete the HH referral but was able to discuss this referral w/ Jose Ramon at [facility], this morning. Faxed all requested clinical; demo sheet, H+P, DC Summary, order and completed and signed F2F to [place] JOAQUIM Maldonado
== END 2021-09-08 11:20 | disposition home health service (06) | DRG 281 ==
LOC: ED 19:49 → AC 09-07 06:54
PROVIDERS: Emergency Medicine; Admitting Provider Nurse Practitioner Family; Emergency Provider Emergency Medicine; PCP Internal Medicine; Visit Provider Nurse Practitioner Family
DX: I21.4 Non-ST elevation (NSTEMI) myocardial infarction (principal); N17.9 Acute kidney failure, unspecified; N18.4 Chronic kidney disease, stage 4 (severe); I12.9 Hypertensive chronic kidney disease with stage 1 through stage 4 chronic kidney disease, or unspecified chronic kidney disease; F03.90 Unspecified dementia, unspecified severity, without behavioral disturbance, psychotic disturbance, mood disturbance, and anxiety; I48.91 Unspecified atrial fibrillation; E78.5 Hyperlipidemia, unspecified; I25.10 Atherosclerotic heart disease of native coronary artery without angina pectoris; Z79.01 Long term (current) use of anticoagulants; Z66 Do not resuscitate; Z20.822 Contact with and (suspected) exposure to COVID-19; Z87.891 Personal history of nicotine dependence
CPT/HCPCS: 36415; 71045; 80048; 80053; 80061; 80076; 81001; 82550; 82962; 83036; 83690; 83735; 83880; 84443; 84484; 85025; 87635; 93005; 93010; 93306; 99284; 99291; C9803; Q9957

== ENCOUNTER → 2021-11-09 12:43 | Outpatient (CLI) | payer MEDICARE, OTHER, SELFPAY ==
[2021-09-06 23:10] VITALS: BMI 29.1
[2021-11-09 14:13] LABS: Albumin 4.1 g/dL (3.5-5.0); BUN Creatinine Ratio 16.7 (6-22); Blood Urea Nitrogen 37 mg/dL (9-20); Carbon Dioxide 26 mmol/L (22-32); Chloride 107 mmol/L (98-107); Estimated Glomerular Filt Rate 29 mL/min (>60); Glucose 173 mg/dL (80-110); HEMOLYSIS < 15 (0-50); Phosphorous 3.9 mg/dL (2.3-3.7); Sodium 140 mmol/L (137-145)
[2021-11-09 17:18] LABS: Creatinine Urine Random 127.9 mg/dL
[2021-11-09 17:54] LABS: Microalbumi Creatinin Ratio Ur 2720.8 ug/mg CR (<30)
== END ==
PROVIDERS: PCP Internal Medicine; Referring Provider Internal Medicine Nephrology; Visit Provider Internal Medicine Nephrology
DX: N18.4 Chronic kidney disease, stage 4 (severe) (principal)
CPT/HCPCS: 36415; 80069; 82043; 82570

== ENCOUNTER 2022-03-20 12:21 | Observation (INO) | payer MEDICARE, OTHER, SELFPAY ==
[2021-09-06 23:10] VITALS: BMI 29.1
[2022-03-20] VITALS (11 sets, daily range): BP systolic 120–173; BP diastolic 70–93; PULSE 70–94; RESP 15–23; TEMP 35.9–36.4; O2SAT 95–100; BMI 30.4
[2022-03-20 13:43] LABS: Alanine Aminotransferase 24 IU/L (<50); Albumin 4.2 g/dL (3.5-5.0); Albumin Globulin Ratio 1.1 (1.0-2.8); Alkaline Phosphatase 120 U/L (38-126); Aspartate Aminotransferase 33 IU/L (17-59); BUN Creatinine Ratio 19.3 (6-22); Bilirubin Total 0.8 mg/dL (0.2-1.3); Blood Urea Nitrogen 49 mg/dL (9-20); Carbon Dioxide 18 mmol/L (22-32); Chloride 109 mmol/L (98-107); Estimated Glomerular Filt Rate 24 mL/min (>60); Globulin 3.7 g/dL (1.7-4.1); Glucose 238 mg/dL (80-110); HEMOLYSIS 52 (0-50); Potassium 6.2 mmol/L (3.4-5.1); Sodium 140 mmol/L (137-145); Total Protein 7.9 g/dL (6.3-8.2)
--- NOTE | 2022-03-20 14:05 | DI.RAD.S_ITS ---
PROCEDURE: XR CHEST 1V INDICATIONS: Hyperkalemia TECHNIQUE: One view of the chest was acquired. COMPARISON: [facility], CR, XR CHEST 1V, 09/06/2021, 16:09. FINDINGS: Surgical changes and devices: None. Lungs and pleura: Lungs are clear. No pleural effusions or pneumothorax. Mediastinum: Mediastinal contours appear normal. Heart size is normal. Bones and chest wall: No suspicious bony lesions. Overlying soft tissues appear unremarkable. IMPRESSION: No acute cardiopulmonary process demonstrated radiographically. Dictated by: Mehul Woods M.D. on 03/20/2022 at 15:26 Approved by: Mehul Woods M.D. on 03/20/2022 at 15:27
--- NOTE | 2022-03-20 14:17 | ED.RECABL ---
HPI - Recheck/Abnormal Lab/Rx General Chief Complaint: Recheck/Abnormal Lab/Rx Stated Complaint: SENT BY [facility]IL[facility] DOC./DUE LABS Time Seen by Provider: 03/20/22 14:05 Source: patient Mode of arrival: Ambulatory Limitations: no limitations History of Present Illness HPI narrative: This is a 86-year-old male with history of chronic kidney disease, Alzheimer's, coronary artery disease with prior bypass and on Xarelto. Patient was having routine labs with primary care for upcoming outpatient visit and was found to have a potassium of 6.6 this morning lab draw about 10:00 a.m.. Referred to the emergency department repeat shows 6.2 and a bump in creatinine from prior. Patient has not had any complaints recently. He does not have any complaints currently. Daughter states he has very significant memory loss but he is not had any complaints of pain to her, has not had any chest pain, no shortness of breath, no passing out, no vomiting, no diarrhea constipation. No new swelling in extremities. He lives independently in his home but his son lives on the same property. Patient's only medication change he was started atorvastatin in September after a heart attack. He has been eating and drinking normally his daughter states she usually thinks he needs a little bit more water and no sudden decrease in urine output that they are aware. Patient is DNR/DNI but open to limited to interventions this was clarified with both daughter and son. Related Data Home Medications Medication Instructions Recorded Confirmed nitroglycerin 6.5 mg 6.5 mg PO BID ##0 10/07/12 03/20/22 capsule,extended release amlodipine 10 mg tablet 10 mg PO DAILY 06/10/20 03/20/22 metoprolol succinate 50 mg 50 mg PO DAILY 06/10/20 03/20/22 tablet,extended release 24 hr (Toprol XL) telmisartan 40 mg tablet 40 mg PO DAILY 06/10/20 03/20/22 rivaroxaban 15 mg tablet (Xarelto) 15 mg PO QPM 09/06/21 03/20/22 Previous Rx's Medication Instructions Recorded atorvastatin 40 mg tablet 40 mg PO BEDTIME #30 tabs 09/08/21 Allergies Allergy/AdvReac Type Severity Reaction Status Date / Time cholera vaccine Allergy Unknown Verified 09/06/21 15:29 Review of Systems Review of Systems ROS Unobtainable: All systems reviewed & are unremarkable except as noted in HPI and below 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 HEENT: Head normocephalic, atraumatic, EOMI, pupils reactive, face symmetric, moist mucous membranes NECK: Supple, full range of motion CARDIOVASCULAR: Regular rate and rhythm without murmurs, rubs or gallops. RESPIRATORY: Breath sounds equal bilaterally, no wheezes rales or rhonchi. ABDOMEN: Soft, nontender. Normoactive bowel sounds all 4 quadrants. No guarding or rebound, rigidity, no mass, nondistended. : No CVA tenderness EXTREMITIES: Normal range of motion, no clubbing or edema. Neurovascularly intact NEUROLOGICAL: Cranial nerves II through XII grossly intact. Moving all extremities SKIN: Warm, dry, no petechiae, no rashes or lesions. Initial Vital Signs Initial Vital Signs: Vital Signs Temperature 96.7 F L 03/20/22 12:45 Pulse Rate 70 03/20/22 12:45 Respiratory Rate 18 03/20/22 12:45 Blood Pressure 131/70 03/20/22 12:45 Pulse Oximetry 97 03/20/22 12:45 Oxygen Delivery Method 03/20/22 12:45 Course Orders Ordered: ED Orders 03/20/22 12:55 CMP [Comprehensive Metabolic Panel] Stat 03/20/22 14:05 Chest [XR chest 1V] Stat 03/20/22 14:45 CT kidney ureter bladder (KUB) Stat 03/20/22 15:26 CBC Auto Diff [Complete Blood Count AUTO DIFF] Stat 03/20/22 15:44 COVID19 -Nasal RAPID/Pre-Proc Stat 03/20/22 15:56 UA Complete [Urinalysis and Microscopic] Stat Discontinued Medications Dextrose (Dextrose 50 % In Water 25 Gm/50 Ml Syringe) 25 gm IV NOW ONE Stop: 03/20/22 14:47 Last Admin: 03/20/22 15:31 Dose: 25 gm Documented By: RODRIGO Sodium Chloride (Normal Saline 0.9%) 1,000 mls @ 1,000 mls/hr IV BOLUS ONE Stop: 03/20/22 15:04 Last Admin: 03/20/22 15:10 Dose: 1,000 mls/hr Documented By: RODRIGO Calcium Gluconate 9.3 meq/ (Sodium Chloride) 70 mls @ 140 mls/hr IV NOW ONE Stop: 03/20/22 15:15 Last Infusion: 03/20/22 16:20 Dose: 0 mls/hr Documented By: Admin: 03/20/22 15:13 Dose: 140 mls/hr Documented By: RODRIGO Insulin Human Regular (Insulin Regular 100 Unit/Ml 3 Ml Vial) 5 unit IV NOW ONE Stop: 03/20/22 14:47 Last Admin: 03/20/22 15:19 Dose: 5 unit Documented By: RODRIGO Co-signed By: JAMEEL Sodium Bicarbonate (Sodium Bicarb 8.4% Syringe) 50 meq IV NOW ONE Stop: 03/20/22 14:47 Last Admin: 03/20/22 15:12 Dose: 50 meq Documented By: RODRIGO Sodium Polystyrene Sulfonate (Sodium Polystyrene Sulfon/Sorb 15 Gm/60 Ml Cup) 15 gm PO NOW ONE Stop: 03/20/22 14:47 Last Admin: 03/20/22 15:36 Dose: 15 gm Documented By: RODRIGO Consultations Consultation #1: Dr. Hernandez, hospitalist accepts for observation. Time: 17:52 Vital Signs Vital signs: Vital Signs - 8 hr 03/20/22 12:45 03/20/22 15:14 03/20/22 15:26 Temperature 96.7 F L Pulse Rate 70 76 76 Respiratory Rate 18 21 19 Blood Pressure 131/70 Pulse Oximetry 97 98 Oxygen Delivery Method Room Air 03/20/22 15:26 03/20/22 15:30 03/20/22 15:30 Temperature Pulse Rate 76 Respiratory Rate 16 Blood Pressure 136/73 135/78 Pulse Oximetry 99 Oxygen Delivery Method 03/20/22 16:03 03/20/22 16:04 03/20/22 16:04 Temperature Pulse Rate 94 H 91 H Respiratory Rate 23 23 Blood Pressure 152/93 H Pulse Oximetry 95 97 Oxygen Delivery Method 03/20/22 16:30 03/20/22 16:30 03/20/22 17:00 Temperature Pulse Rate 86 88 Respiratory Rate 15 22 Blood Pressure 154/91 H Pulse Oximetry 97 98 Oxygen Delivery Method 03/20/22 17:01 03/20/22 17:01 03/20/22 17:03 Temperature Pulse Rate 88 Respiratory Rate 23 Blood Pressure 120/77 147/86 H Pulse Oximetry Oxygen Delivery Method 03/20/22 17:03 Temperature Pulse Rate 87 Respiratory Rate 16 Blood Pressure Pulse Oximetry 96 Oxygen Delivery Method MDM - Recheck/Abnormal Lab/Rx Lab Data Result diagrams: 03/20/22 15:26 03/20/22 12:55 Labs: Lab Results 03/20/22 03/20/22 03/20/22 Range/Units 12:55 15:26 15:44 WBC 9.6 (4.5-11.0) X10^3/uL RBC 5.10 (4.5-5.9) X10^6/uL Hgb 14.1 (13.5-17.5) g/dL Hct 43.2 (41-53) % MCV 84.7 (80-100) fL MCH 27.6 (26-34) PG MCHC 32.6 (30-36) % RDW 14.8 (11.6-14.8) % Plt Count 193 (150-400) X10^3/uL Neut % (Auto) 70.4 (50-75) % Lymph % (Auto) 17.5 L (25-40) % [place] % (Auto) 10.1 (3-14) % Eos % (Auto) 1.3 L (2-4) % Baso % (Auto) 0.7 (0-2) % Neut # (Auto) 6800 (1430-7271) /uL Lymph # (Auto) 1700 (1237-3364) /uL [place] # (Auto) 1000 H (0-900) /uL Eos # (Auto) 100 (0-450) /uL Baso # (Auto) 100 (0-100) /uL Sodium 140 (137-145) mmol/L Potassium 6.2 H (3.4-5.1) mmol/L Chloride 109 H (98-107) mmol/L Carbon Dioxide 18 L (22-32) mmol/L BUN 49 H (9-20) mg/dL Creatinine 2.54 H (0.66-1.25) mg/dL Estimated GFR 24 L (>60) mL/min BUN/Creatinine Ratio 19.3 (6-22) Glucose 238 H (80-110) mg/dL Calcium 9.0 (8.4-10.2) mg/dL Total Bilirubin 0.8 (0.2-1.3) mg/dL AST 33 (17-59) IU/L ALT 24 (<50) IU/L Alkaline Phosphatase 120 (38-126) U/L Total Protein 7.9 (6.3-8.2) g/dL Albumin 4.2 (3.5-5.0) g/dL Globulin 3.7 (1.7-4.1) g/dL Albumin/Globulin Ratio 1.1 (1.0-2.8) Urine Color Urine Appearance Urine pH (4.5-8.0) Ur Specific [place] (1.000-1.035) Urine Protein (Negative) Urine Glucose (UA) (Negative) g/dL Urine Ketones (NEGATIVE) Urine Occult Blood (Negative) Urine Nitrate (Negative) Urine Bilirubin (NEGATIVE) Urine Urobilinogen (0.2) E.U./dL Ur Leukocyte Esterase (NEGATIVE) Urine RBC (0-5/HPF) Urine WBC (0-5/HPF) Urine Bacteria (None) Ur Culture Indicated? SARS-CoV-2 (PCR) Negative (Negative) 03/20/22 Range/Units 15:56 WBC (4.5-11.0) X10^3/uL RBC (4.5-5.9) X10^6/uL Hgb (13.5-17.5) g/dL Hct (41-53) % MCV (80-100) fL MCH (26-34) PG MCHC (30-36) % RDW (11.6-14.8) % Plt Count (150-400) X10^3/uL Neut % (Auto) (50-75) % Lymph % (Auto) (25-40) % [place] % (Auto) (3-14) % Eos % (Auto) (2-4) % Baso % (Auto) (0-2) % Neut # (Auto) (7917-9887) /uL Lymph # (Auto) (3917-6702) /uL [place] # (Auto) (0-900) /uL Eos # (Auto) (0-450) /uL Baso # (Auto) (0-100) /uL Sodium (137-145) mmol/L Potassium (3.4-5.1) mmol/L Chloride (98-107) mmol/L Carbon Dioxide (22-32) mmol/L BUN (9-20) mg/dL Creatinine (0.66-1.25) mg/dL Estimated GFR (>60) mL/min BUN/Creatinine Ratio (6-22) Glucose (80-110) mg/dL Calcium (8.4-10.2) mg/dL Total Bilirubin (0.2-1.3) mg/dL AST (17-59) IU/L ALT (<50) IU/L Alkaline Phosphatase (38-126) U/L Total Protein (6.3-8.2) g/dL Albumin (3.5-5.0) g/dL Globulin (1.7-4.1) g/dL Albumin/Globulin Ratio (1.0-2.8) Urine Color Yellow Urine Appearance Clear Urine pH 5.5 (4.5-8.0) Ur Specific [place] 1.010 (1.000-1.035) Urine Protein 2+ H (Negative) Urine Glucose (UA) 1+ H (Negative) g/dL Urine Ketones Negative (NEGATIVE) Urine Occult Blood Trace-lysed (Negative) Urine Nitrate Negative (Negative) Urine Bilirubin Negative (NEGATIVE) Urine Urobilinogen 0.2 (0.2) E.U./dL Ur Leukocyte Esterase Negative (NEGATIVE) Urine RBC None seen (0-5/HPF) Urine WBC None seen (0-5/HPF) Urine Bacteria None seen (None) Ur Culture Indicated? Cult not indicated SARS-CoV-2 (PCR) (Negative) Point of Care Testing Glucose POC 134 Imaging Data Chest x-ray: Radiologist's Impression: [address] [address] XRay Report Signed Patient: Yahir Stratton MR#: [id number] : 1935 Acct:[id number] Age/Sex: 86 / M Date of Service: 03/20/22 Loc: ED Accession Number: [id number] ?? Procedure: XR chest 1V Ordering Provider: Faye Magana D.O. PROCEDURE:? XR CHEST 1V ? INDICATIONS:? Hyperkalemia ? TECHNIQUE:? One view of the chest was acquired.? ? COMPARISON:? [facility], CR, XR CHEST 1V, 09/06/2021, 16:09. ? FINDINGS:? ? Surgical changes and devices:? None.? ? Lungs and pleura:? Lungs are clear.? No pleural effusions or pneumothorax.? ? Mediastinum:? Mediastinal contours appear normal.? Heart size is normal.? ? Bones and chest wall:? No suspicious bony lesions.? Overlying soft tissues appear unremarkable.? ? IMPRESSION:? No acute cardiopulmonary process demonstrated radiographically. ? ? Dictated by: Mehul Woods M.D. on 03/20/2022 at 15:26 ? ? Approved by: Mehul Woods M.D. on 03/20/2022 at 15:27?? CT scan - abdomen/pelvis: Radiologist's Impression: [address] [address] [address] Scan Report Signed Patient: Yahir Stratton MR#: [id number] : 1935 Acct:[id number] Age/Sex: 86 / M Date of Service: 03/20/22 Loc: ED Accession Number: [id number] ?? Procedure: CT kidney ureter bladder (KUB) Ordering Provider: Faye Magana D.O. PROCEDURE:? CT KIDNEY URETER BLADDER (KUB) ? INDICATIONS:? acute on chronic dai, hyperkalemia ? TECHNIQUE:? Axial sections were acquired from the lung bases to the pubic symphysis.? Coronal and sagittal reformats were performed.? For radiation dose reduction, the following was used: ?automated exposure control, adjustment of mA and/or kV according to patient size.? ? COMPARISON:? [facility], CT, CT KIDNEY URETER BLADDER (KUB), 06/29/2021, 14:08. ? FINDINGS:? Image quality:? Excellent.? ? Lung bases:? Unremarkable.? ? Heart:? Heavy coronary artery calcification. ? URINARY: Right Kidney: ? 4. Prior prostatectomy.? Complicated exophytic right upper pole cyst and several other cortical cystic lesions.? Calcified septations present in the largest cyst.? No hydronephrosis or nephrolithiasis. Right Ureter:? No hydroureter or ureteral calculi. ? Left Kidney:? Nonobstructing left lower pole stone conforming to the calyx measuring 8 mm with Hounsfield units of 306. Exophytic cortical and parapelvic cysts present.? No hydronephrosis.? Left Ureter:? No hydroureter or ureteral calculi. ? Bladder:? Normal wall thickness. No stones. ? ? ? ABDOMEN: Liver:? Normal. Gallbladder:? No calcifications or wall thickening. Biliary ducts:? Nondilated. Pancreas:? Normal. Spleen:? Normal size. Adrenal Glands:? No nodules. ? Stomach and Bowel:? Increased quantity of rectal stool.? Extensive sigmoid diverticulosis without acute diverticulitis.? Normal stomach and small bowel loops. Peritoneum:? No abnormal intraperitoneal fluid.? No free air.? ? Ventral Wall: ? No hernia.? Abdominal Nodes:? No enlarged retroperitoneal or mesenteric lymph nodes.? Vessels:? Aorta and inferior vena cava are normal in size.? Heavy abdominal aortic atherosclerotic calcification. ? PELVIS: Pelvic Organs:? Prostate gland is surgically absent. Pelvic Nodes:? No adenopathy. Miscellaneous:? Moderate-size fat containing left inguinal hernia. ? Bones:? L5 limbus vertebra.? Multilevel disc and endplate degeneration throughout the lumbar spine.? Moderate degenerative change in the right femoroacetabular joint. ? IMPRESSION:? ? 1. Nonobstructing left lower pole calyceal calcification. ? 2. No evidence of obstructive uropathy. ? 3. Bilateral cystic lesions in each kidney without significant change compared to prior. ? 4. Sigmoid diverticulosis without acute diverticulitis.? Dictated by: Glenis Alvarado M.D. on 03/20/2022 at 16:31 ? ? Approved by: Glenis Alvarado M.D. on 03/20/2022 at 16:40?? ECG Data Attestation: I personally reviewed and interpreted this ECG as follows: Prior ECG tracings: not available for review Interpretation: Sinus rhythm rate of 68 MO 130 QRS is 76 and QTC of 382. No acute ST elevation or depression. No priors for comparison MDM Narrative Medical decision making narrative: 86-year-old male with hyperkalemia on routine labs and bumped patient's creatinine. No clear acute cause but patient does have chronic kidney disease which appears to have worsened. He is had kidney stones before and with his significant Alzheimer's CT KUB was ordered to evaluate for any obstructive or kidney stone process that might be causing an alteration renal function he is on an Arb which could contribute as well. Discussed with patient's family he is DNR/DNI patient is quite demented and unable to really express his goals of care. According to family he is not on hemodialysis candidate and they would not pursue. He does appear to have an acute on chronic kidney injury with hyperkalemia dehydration may be contributing a little bit. Patient was given medications here in the department spoke with hospitalist who accepts for observation. Critical Care Time Critical Care Time Critical Care Time: Yes Total Critical Care Time: 25 Attestation: The high probability of a clinically significant, sudden or life threatening deterioration of the [cardiac] system(s) required my full and direct attention, intervention and personal management. The aggregate critical care time was [] minutes. This time is in addition to time spent performing reported procedures but includes the following: [x] Data Review and interpretation [x] Patient assessment and monitoring of vital signs [x] Documentation [x] Medication orders and management Discharge Plan Departure Patient Disposition: Admitted as Observation Clinical Impression: Hyperkalemia, Acute on chronic kidney failure Admit Date/Time: 03/20/22 17:52 Admit Provider: Gregorio Hernandez
--- NOTE | 2022-03-20 14:45 | DI.CT.S_ITS ---
PROCEDURE: CT KIDNEY URETER BLADDER (KUB) INDICATIONS: acute on chronic dai, hyperkalemia TECHNIQUE: Axial sections were acquired from the lung bases to the pubic symphysis. Coronal and sagittal reformats were performed. For radiation dose reduction, the following was used: automated exposure control, adjustment of mA and/or kV according to patient size. COMPARISON: [facility], CT, CT KIDNEY URETER BLADDER (KUB), 06/29/2021, 14:08. FINDINGS: Image quality: Excellent. Lung bases: Unremarkable. Heart: Heavy coronary artery calcification. URINARY: Right Kidney: 4. Prior prostatectomy. Complicated exophytic right upper pole cyst and several other cortical cystic lesions. Calcified septations present in the largest cyst. No hydronephrosis or nephrolithiasis. Right Ureter: No hydroureter or ureteral calculi. Left Kidney: Nonobstructing left lower pole stone conforming to the calyx measuring 8 mm with Hounsfield units of 306. Exophytic cortical and parapelvic cysts present. No hydronephrosis. Left Ureter: No hydroureter or ureteral calculi. Bladder: Normal wall thickness. No stones. ABDOMEN: Liver: Normal. Gallbladder: No calcifications or wall thickening. Biliary ducts: Nondilated. Pancreas: Normal. Spleen: Normal size. Adrenal Glands: No nodules. Stomach and Bowel: Increased quantity of rectal stool. Extensive sigmoid diverticulosis without acute diverticulitis. Normal stomach and small bowel loops. Peritoneum: No abnormal intraperitoneal fluid. No free air. Ventral Wall: No hernia. Abdominal Nodes: No enlarged retroperitoneal or mesenteric lymph nodes. Vessels: Aorta and inferior vena cava are normal in size. Heavy abdominal aortic atherosclerotic calcification. PELVIS: Pelvic Organs: Prostate gland is surgically absent. Pelvic Nodes: No adenopathy. Miscellaneous: Moderate-size fat containing left inguinal hernia. Bones: L5 limbus vertebra. Multilevel disc and endplate degeneration throughout the lumbar spine. Moderate degenerative change in the right femoroacetabular joint. IMPRESSION: 1. Nonobstructing left lower pole calyceal calcification. 2. No evidence of obstructive uropathy. 3. Bilateral cystic lesions in each kidney without significant change compared to prior. 4. Sigmoid diverticulosis without acute diverticulitis. Dictated by: Glenis Alvarado M.D. on 03/20/2022 at 16:31 Approved by: Glenis Alvarado M.D. on 03/20/2022 at 16:40
--- NOTE | 2022-03-20 14:55 | PC.NURSE ---
patient is asymptomatic
[2022-03-20] MEDS: SODIUM CHLORIDE 0.9% 1,000 ML 1000 ML IV (15:10)
[2022-03-20] MEDS: SODIUM BICARB 8.4% SYRINGE 50 MEQ IV (15:12)
[2022-03-20] MEDS: CALCIUM GLUCONATE 9.3 MEQ in SODIUM CHLORIDE 0.9% 50 ML 140 MEQ IV (15:13)
[2022-03-20] MEDS: INSULIN REGULAR 100 UNIT/ML 3 ML VIAL IV (15:19)
[2022-03-20] MEDS: DEXTROSE 50 % IN WATER 25 GM/50 ML SYRINGE IV (15:31)
[2022-03-20 15:34] LABS: Add Manual Diff / Slide Review NO; Basophils Absolute Auto 100 /uL (0-100); Basophils Percent Auto 0.7 % (0-2); Eosinophils Absolute Auto 100 /uL (0-450); Eosinophils Percent Auto 1.3 % (2-4); Hematocrit 43.2 % (41-53); Hemoglobin 14.1 g/dL (13.5-17.5); Lymphocytes Absolute Auto 1700 /uL (1100-4500); Lymphocytes Percent Auto 17.5 % (25-40); Mean Corpuscular HGB Conc 32.6 % (30-36); Mean Corpuscular Hemoglobin 27.6 PG (26-34); Mean Corpuscular Volume 84.7 fL (80-100); Monocytes Absolute Auto 1000 /uL (0-900); Monocytes Percent Auto 10.1 % (3-14); Neutrophils Absolute Auto 6800 /uL (1500-7000); Neutrophils Percent Auto 70.4 % (50-75); Platelet Count 193 X10^3/uL (150-400); Red Cell Distribution Width 14.8 % (11.6-14.8); White Blood Cell Count 9.6 X10^3/uL (4.5-11.0)
[2022-03-20] MEDS: SODIUM POLYSTYRENE SULFON/SORB 15 GM/60 ML CUP PO (15:36)
[2022-03-20 16:19] LABS: Appearance Urine UA CLEAR; Bilirubin Urine UA NEGATIVE (NEGATIVE); Color Urine UA YELLOW; Glucose Urine UA 1+ g/dL (Negative); Ketones Urine UA NEGATIVE (NEGATIVE); Leukocyte Esterase Urine UA NEGATIVE (NEGATIVE); Nitrite Urine UA NEGATIVE (Negative); Occult Blood Urine UA TRACE-LYSED (Negative); Protein Urine UA 2+ (Negative); Urobilinogen Urine UA 0.2 E.U./dL (0.2); pH Urine UA 5.5 (4.5-8.0)
[2022-03-20 16:21] LABS: COVID19 -Nasal RAPID Negative (Negative)
[2022-03-20 16:29] LABS: Bacteria Urine None Seen; Culture Indicated Urine Cult Not Indicated; RBC Urine None Seen (0-5/HPF); WBC Urine None Seen (0-5/HPF)
--- NOTE | 2022-03-20 19:52 | PM.HP.1 ---
History of Present Illness History of Present Illness Date Patient Seen: 03/20/22 Time Patient Seen: 19:52 Chief complaint: SENT BY [facility] DOC./DUE LABS Narrative: Yahir Stratton is a 86 yr old male with history of chronic kidney disease stage IV, Alzheimer's, coronary artery disease with prior bypass, AFIB and on Xarelto,HTN, recent NSTEMI and heart Cath who presented to the ED after having routine labs with primary care, had a potassium of 6.6 at 10:00 a.m. Was referred to the emergency department repeat K+ 6.2 and a bump in creatinine from prior.? Patient has not had any complaints recently.? He does not have any complaints currently.? Daughter states he has very significant memory loss but he is not had any complaints of pain to her, has not had any chest pain, no shortness of breath, no passing out, no vomiting, no diarrhea constipation.? No new swelling in extremities.? He lives independently in his home but his son lives on the same property.? Patient's only medication change he was started atorvastatin in September after a heart attack.? He has been eating and drinking normally his daughter states she usually thinks he needs a little bit more water and no sudden decrease in urine output that they are aware.? Patient is DNR/DNI but open to limited to interventions this was clarified with both daughter and son. In the ED the patient received Kayexalate 15 g, calcium 9.3 mEq, dextrose 25 g, 5 units of R insulin, and bicarb 50 mEq. Due to patient's Alzheimer's dementia is unable to participate in HPI, ROS, or medication reconciliation. Upon admit patient's vitals are stable temp 96.7, BP 147/86, HR 87, R 16, O2 saturation 96% on room air. Patient's CBC is unremarkable, patient's potassium in ED 6.2, repeat labs ordered for 2000, chloride 109, BUN 49, glucose 238, bicarb 18, creatinine 2.54, GFR 24-these findings are mildly increased from baseline noting JOHNNY on stage IV CKD, patient's creatinine clearance is 28, no significant gap 13, patient's urinalysis, and COVID were both negative. Chest x-ray negative for any acute cardiopulmonary processes. Abdomen pelvis CT demonstrated a nonobstructing left lower pole calyceal calcification, no evidence of obstructive uropathy, with bilateral cystic lesions in each kidney without significant change, and sigmoid diverticulosis without acute diverticulitis.? EKG sinus rhythm with a rate of [address] or T-wave changes. Interview with the family in ED did not disclose any vomiting or diarrhea, patient's telmisartan may be the cause of hyperkalemia. Patient admitted for JOHNNY on CKD stage 4 with severe hyperkalemia. ? 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 Testicular swelling Surgical History Hx of cardiac catheterization Family & Social History Family History Father Heart disease Brother Heart disease Brother Heart disease Daughter Heart disease Other Hyperlipidemia Social History: household members significant other,family Prior Living Arrangements House Safety & Behavioral: Feels Safe in Current Yes Environment Been Physically Hurt or No Threatened By a Person Tobacco & Substance use: Smoking Status Former smoker alcohol intake current alcohol intake frequency holiday/special occasion Substance Use Type does not use Meds Home Medications and Allergies Home Medications Medication Instructions Recorded Confirmed Type nitroglycerin 6.5 mg 6.5 mg PO BID ##0 10/07/12 03/20/22 History capsule,extended release amlodipine 10 mg tablet 10 mg PO DAILY 06/10/20 03/20/22 History metoprolol succinate 50 mg 50 mg PO DAILY 06/10/20 03/20/22 History tablet,extended release 24 hr (Toprol XL) telmisartan 40 mg tablet 40 mg PO DAILY 06/10/20 03/20/22 History rivaroxaban 15 mg tablet (Xarelto) 15 mg PO QPM 09/06/21 03/20/22 History atorvastatin 40 mg tablet 40 mg PO BEDTIME #30 tabs 09/08/21 03/20/22 Rx Allergies Allergy/AdvReac Type Severity Reaction Status Date / Time cholera vaccine Allergy Unknown Verified 09/06/21 15:29 diphenhydramine AdvReac Severe Hallucinati Verified 03/20/22 19:29 [From Benadryl] ng Review of Systems Review of Systems Narrative: Unable to obtain accurate ROS from the patient due to Alzheimer's dementia. Exam Vital Signs (past 8 hours): - 03/20/22 12:45 03/20/22 15:14 03/20/22 15:26 Temperature 96.7 F L Pulse Rate 70 76 76 Respiratory Rate 18 21 19 Blood Pressure 131/70 Pulse Oximetry 97 98 Oxygen Delivery Method Room Air Oxygen Flow Rate 03/20/22 15:26 03/20/22 15:30 03/20/22 15:30 Temperature Pulse Rate 76 Respiratory Rate 16 Blood Pressure 136/73 135/78 Pulse Oximetry 99 Oxygen Delivery Method Oxygen Flow Rate 03/20/22 16:03 03/20/22 16:04 03/20/22 16:04 Temperature Pulse Rate 94 H 91 H Respiratory Rate 23 23 Blood Pressure 152/93 H Pulse Oximetry 95 97 Oxygen Delivery Method Oxygen Flow Rate 03/20/22 16:30 03/20/22 16:30 03/20/22 17:00 Temperature Pulse Rate 86 88 Respiratory Rate 15 22 Blood Pressure 154/91 H Pulse Oximetry 97 98 Oxygen Delivery Method Oxygen Flow Rate 03/20/22 17:01 03/20/22 17:01 03/20/22 17:03 Temperature Pulse Rate 88 Respiratory Rate 23 Blood Pressure 120/77 147/86 H Pulse Oximetry Oxygen Delivery Method Oxygen Flow Rate 03/20/22 17:03 03/20/22 18:50 Temperature 97.6 F Pulse Rate 87 93 H Respiratory Rate 16 23 Blood Pressure 173/91 H Pulse Oximetry 96 100 Oxygen Delivery Method Oxygen Flow Rate 0 Oxygen Delivery Method Room Air Oxygen Flow Rate 0 Narrative Exam Narrative: General: Patient is a pleasant elderly male, in no acute distress at this time. HEENT: Normocephalic, atraumatic, extraocular muscles intact, oral pharynx is clear and mucous membranes are dry.. Neck is supple and symmetric, trachea is midline, no adenopathy, no thyroid enlargement, nontender, no masses palpated. Negative for JVD Chest: No tachypnea, use of abdominal muscles, no nasal flaring, retractions, or labored breathing. Lungs: Auscultation of all lung cline are clear without adventitious sounds, wheezes, rhonchi, or rales. Cardio: S1 & S2 with regular rate and rhythm without murmur, rubs, or gallops, no carotid bruit, no cardiac pulsations present. Abdomen: Soft nontender, negative for organomegaly, or masses. Bowel sounds are present in all 4 quadrants without guarding or rebound, no CVA tenderness. Musculoskeletal: Muscle strength and tone are equal within normal limits, no deformity, crepitus, effusions, cyanosis, clubbing or edema present. Full range of motion intact radial and pedal pulses are normal. Skin: Warm dry, significant cracking and intact without rashes, ulcerations or petechiae. Neuro: Alert and orientated to self, moves all extremities, sensation to touch intact, no gross deficits noted of cranial nerves. Psych: Patient has a well-kept appearance, pleasant, appropriate interaction, confused and unable to give accurate HPI, ROS does not appear to understand why he is here or participate in his care.Daughter at bed side. Objective Labs Result Diagrams: 03/20/22 15:26 03/20/22 22:45 Labs: Laboratory Results - last 24 hr 03/20/22 03/20/22 03/20/22 12:55 15:26 15:44 WBC 9.6 RBC 5.10 Hgb 14.1 Hct 43.2 MCV 84.7 MCH 27.6 MCHC 32.6 RDW 14.8 Plt Count 193 Neut % (Auto) 70.4 Lymph % (Auto) 17.5 L [place] % (Auto) 10.1 Eos % (Auto) 1.3 L Baso % (Auto) 0.7 Neut # (Auto) 6800 Lymph # (Auto) 1700 [place] # (Auto) 1000 H Eos # (Auto) 100 Baso # (Auto) 100 Sodium 140 Potassium 6.2 H Chloride 109 H Carbon Dioxide 18 L BUN 49 H Creatinine 2.54 H Estimated GFR 24 L BUN/Creatinine Ratio 19.3 Glucose 238 H Calcium 9.0 Total Bilirubin 0.8 AST 33 ALT 24 Alkaline Phosphatase 120 Total Protein 7.9 Albumin 4.2 Globulin 3.7 Albumin/Globulin Ratio 1.1 Urine Color Urine Appearance Urine pH Ur Specific [place] Urine Protein Urine Glucose (UA) Urine Ketones Urine Occult Blood Urine Nitrate Urine Bilirubin Urine Urobilinogen Ur Leukocyte Esterase Urine RBC Urine WBC Urine Bacteria Ur Culture Indicated? SARS-CoV-2 (PCR) Negative 03/20/22 15:56 WBC RBC Hgb Hct MCV MCH MCHC RDW Plt Count Neut % (Auto) Lymph % (Auto) [place] % (Auto) Eos % (Auto) Baso % (Auto) Neut # (Auto) Lymph # (Auto) [place] # (Auto) Eos # (Auto) Baso # (Auto) Sodium Potassium Chloride Carbon Dioxide BUN Creatinine Estimated GFR BUN/Creatinine Ratio Glucose Calcium Total Bilirubin AST ALT Alkaline Phosphatase Total Protein Albumin Globulin Albumin/Globulin Ratio Urine Color Yellow Urine Appearance Clear Urine pH 5.5 Ur Specific [place] 1.010 Urine Protein 2+ H Urine Glucose (UA) 1+ H Urine Ketones Negative Urine Occult Blood Trace-lysed Urine Nitrate Negative Urine Bilirubin Negative Urine Urobilinogen 0.2 Ur Leukocyte Esterase Negative Urine RBC None seen Urine WBC None seen Urine Bacteria None seen Ur Culture Indicated? Cult not indicated SARS-CoV-2 (PCR) Assessment & Plan Assessment & Plan narrative: Yahir Stratton is a 86 yr old male with history of chronic kidney disease stage IV, Alzheimer's, coronary artery disease with prior bypass, AFIB and on Xarelto,HTN, recent NSTEMI and heart Cath who presented to the ED after having routine labs with primary care, had a potassium of 6.6 at 10:00 a.m. Was referred to the emergency department repeat K+ 6.2 and a bump in creatinine from prior. Patient admitted for JOHNNY on CKD stage 4 with severe hyperkalemia. 1. Hyperkalemia, acute, present on admission -patient lives with his in a home on the property that they share with her son, the daughter reports that both mom and dad suffer from dementia. The patient and the daughter deny any recent illness vomiting or diarrhea but because the patient resides with his demented alone, I am unable to verify. The patient appears severely dehydrated likely due to poor oral intake. -Recommend [employer] consult regarding perhaps in home care workers to support nutrition and medication management. -10:00 a.m. potassium 6.6, in ED potassium 6.2- will continue to trend Repeat ordered 1999 (Goal to reduce within 6-12Hrs) -patient was given in ED Kayexlate 15 g, calcium 9.3 mEq, dextrose 25 g, 5 units regular insulin, and 50 mEq of bicarb. -patient placed on telemetry to monitor for arrhythmias -monitor for bleeding, tissue breakdown, paralysis, muscle weakness, cardiac arrhythmias, rhabdomyolysis or tumor lysis syndrome -suspect patient's telmisartan may be the cause of hyperkalemia -monitored on TeleMed -EKG sinus rhythm with a rate of [address] or T-wave changes. 2. JOHNNY in the setting of CKD stage 4, acute on chronic, present on admission -chloride 109, BUN 49, glucose 238, bicarb 18, creatinine 2.54, GFR 24-these findings are mildly increased from baseline -creatinine clearance is 28, no significant gap 13 -Baseline: December 2020: Creatinine 2.07-2.46, GFR 25.3230.8, BUN 28-38 -gentle rehydration NS at 100 cc/HR 3. Atrial fibrillation, on Xarelto, chronic, history of NSTEMI, present on admission -EKG sinus rhythm with a rate of [address] or T-wave changes. -continue Xarelto, metoprolol -the patient's daughter states that the patient takes nitroglycerin 6.5 mg p.o. b.i.d. -daughter was advised that we would be holding the nitroglycerin. 4. Essential hypertension, chronic, present on admission -hold telmisartan-changed chlorthalidone 12.5 mg -continue amlodipine, metoprolol -recommend patient follow-up with Cardiology following discharge regarding telmisartan. 5. Hyperlipidemia secondary to coronary artery disease, chronic, present on admission -continue Lipitor 6. Alzheimer's dementia, acute on chronic, present on admission -fall precautions Code status:DNR/DNI Surrogate decision maker:Stacy OLVERA PCR: Negative DVT/VTE prophylaxis: Patient on Xarelto, SCDs only Disposition: Patient admitted for observation for correction of hyperkalemia and JOHNNY-expected length of stay less than 2 midnights. I have utilized all available immediate resources to obtain, update, or review the patient's current medications. I confirmed that the patient's advanced care plan is present, Code status is documented and/or surrogate decision maker is listed in the patient's medical record. Time Spent With Patient Critical Care time: I spent a total of [] minutes of critical care time on this patient's care today; this time is exclusive of procedural time. Quality VTE Deep Vein Thrombosis/Pulmonary Embolism Present on Admission: No
[2022-03-20] MEDS: SENNOSIDES 8.6 MG TABLET 17.2 MG PO (22:02)
[2022-03-20] MEDS: RIVAROXABAN 10 MG TABLET 15 MG PO (22:03)
[2022-03-20] MEDS: ATORVASTATIN 20 MG TABLET 40 MG PO (22:03)
[2022-03-20] MEDS: CHLORTHALIDONE 25 MG TABLET PO (22:04)
[2022-03-20] MEDS: SODIUM CHLORIDE 0.9% 1,000 ML 100 ML IV (22:04)
[2022-03-20 23:13] LABS: Magnesium 1.9 mg/dL (1.6-2.3)
[2022-03-20 23:14] LABS: BUN Creatinine Ratio 18.6 (6-22); Blood Urea Nitrogen 45 mg/dL (9-20); Calcium 8.9 mg/dL (8.4-10.2); Carbon Dioxide 24 mmol/L (22-32); Chloride 108 mmol/L (98-107); Estimated Glomerular Filt Rate 26 mL/min (>60); Glucose 130 mg/dL (80-110); HEMOLYSIS < 15 (0-50); Potassium 5.3 mmol/L (3.4-5.1); Sodium 141 mmol/L (137-145)
[2022-03-20 23:23] LABS: NT-proBNP (BNP-Adult 18+) 331 pg/mL (<450)
[2022-03-20 23:42] LABS: Appearance Urine UA CLEAR; Bilirubin Urine UA NEGATIVE (NEGATIVE); Color Urine UA YELLOW; Glucose Urine UA NEGATIVE (Negative); Ketones Urine UA NEGATIVE (NEGATIVE); Leukocyte Esterase Urine UA NEGATIVE (NEGATIVE); Nitrite Urine UA NEGATIVE (Negative); Occult Blood Urine UA NEGATIVE (Negative); Protein Urine UA 2+ (Negative); Urobilinogen Urine UA 0.2 E.U./dL (0.2)
[2022-03-20 23:47] LABS: Bacteria Urine None Seen; Culture Indicated Urine Cult Not Indicated; RBC Urine None Seen (0-5/HPF); WBC Urine None Seen (0-5/HPF)
[2022-03-21 01:14] VITALS: BP 152/82; PULSE 84; RESP 18; TEMP 36.8; O2SAT 97
[2022-03-21 04:05] VITALS: BP 169/81; PULSE 82; RESP 18; TEMP 36.4; O2SAT 98
[2022-03-21 04:23] VITALS: BP 149/77; PULSE 76; RESP 17
[2022-03-21 05:18] LABS: Add Manual Diff / Slide Review NO; Basophils Absolute Auto 0 /uL (0-100); Basophils Percent Auto 0.5 % (0-2); Eosinophils Absolute Auto 200 /uL (0-450); Hematocrit 42.7 % (41-53); Lymphocytes Absolute Auto 1300 /uL (1100-4500); Lymphocytes Percent Auto 15.8 % (25-40); Mean Corpuscular HGB Conc 32.8 % (30-36); Mean Corpuscular Hemoglobin 27.5 PG (26-34); Monocytes Absolute Auto 800 /uL (0-900); Neutrophils Absolute Auto 5700 /uL (1500-7000); Neutrophils Percent Auto 70.7 % (50-75); Platelet Count 172 X10^3/uL (150-400); Red Blood Cell Count 5.08 X10^6/uL (4.5-5.9); Red Cell Distribution Width 14.8 % (11.6-14.8)
[2022-03-21 05:24] LABS: Alanine Aminotransferase 21 IU/L (<50); Albumin 3.7 g/dL (3.5-5.0); Albumin Globulin Ratio 1.1 (1.0-2.8); Alkaline Phosphatase 112 U/L (38-126); Aspartate Aminotransferase 18 IU/L (17-59); BUN Creatinine Ratio 17.4 (6-22); Bilirubin Total 0.7 mg/dL (0.2-1.3); Blood Urea Nitrogen 39 mg/dL (9-20); Calcium 8.6 mg/dL (8.4-10.2); Carbon Dioxide 23 mmol/L (22-32); Chloride 108 mmol/L (98-107); Estimated Glomerular Filt Rate 28 mL/min (>60); Globulin 3.3 g/dL (1.7-4.1); Glucose 117 mg/dL (80-110); HEMOLYSIS < 15 (0-50); Potassium 4.7 mmol/L (3.4-5.1); Sodium 140 mmol/L (137-145)
[2022-03-21 07:48] VITALS: BP 146/79; PULSE 72; RESP 19; TEMP 36.8; O2SAT 94
[2022-03-21] MEDS: SODIUM CHLORIDE 0.9% 1,000 ML 100 ML IV (08:37)
[2022-03-21] MEDS: CHLORTHALIDONE 25 MG TABLET 12.5 MG PO (08:42)
[2022-03-21] MEDS: METOPROLOL ER 50 MG TABLET PO (08:43)
[2022-03-21] MEDS: AMLODIPINE 5 MG TABLET 10 MG PO (08:43)
--- NOTE | 2022-03-21 10:59 | PM.PN.1 ---
Subjective Subjective Interval history: Yahir Stratton is a 86 yr old male with history of chronic kidney disease stage IV, Alzheimer's, coronary artery disease with prior bypass, AFIB and on Xarelto,HTN, recent NSTEMI and heart Cath who presented to the ED after having routine labs with primary care, had a potassium of 6.6 at 10:00 a.m. Was referred to the emergency department repeat K+ 6.2 and a bump in creatinine from prior. Patient was admitted for observation while his hyperkalemia and acute kidney injury on chronic kidney disease was evaluated. Exam Vital Signs (past 8 hours): - 03/21/22 04:05 03/21/22 04:23 03/21/22 07:48 Temperature 97.5 F L 98.2 F Pulse Rate 82 76 72 Respiratory Rate 18 17 19 Blood Pressure 169/81 H 149/77 H 146/79 H Pulse Oximetry 98 94 Oxygen Flow Rate 0 0 Oxygen Delivery Method Room Air Oxygen Flow Rate 0 Objective Labs Result Diagrams: 03/21/22 04:35 03/21/22 04:35 Labs: Laboratory Results - last 24 hr 03/20/22 03/20/22 03/20/22 12:55 15:26 15:44 WBC 9.6 RBC 5.10 Hgb 14.1 Hct 43.2 MCV 84.7 MCH 27.6 MCHC 32.6 RDW 14.8 Plt Count 193 Neut % (Auto) 70.4 Lymph % (Auto) 17.5 L [place] % (Auto) 10.1 Eos % (Auto) 1.3 L Baso % (Auto) 0.7 Neut # (Auto) 6800 Lymph # (Auto) 1700 [place] # (Auto) 1000 H Eos # (Auto) 100 Baso # (Auto) 100 Sodium 140 Potassium 6.2 H Chloride 109 H Carbon Dioxide 18 L BUN 49 H Creatinine 2.54 H Estimated GFR 24 L BUN/Creatinine Ratio 19.3 Glucose 238 H Calcium 9.0 Magnesium Total Bilirubin 0.8 AST 33 ALT 24 Alkaline Phosphatase 120 NT-Pro-B Natriuret Pep Total Protein 7.9 Albumin 4.2 Globulin 3.7 Albumin/Globulin Ratio 1.1 Urine Color Urine Appearance Urine pH Ur Specific [place] Urine Protein Urine Glucose (UA) Urine Ketones Urine Occult Blood Urine Nitrate Urine Bilirubin Urine Urobilinogen Ur Leukocyte Esterase Urine RBC Urine WBC Urine Bacteria Ur Culture Indicated? SARS-CoV-2 (PCR) Negative 03/20/22 03/20/22 03/20/22 15:56 22:45 22:45 WBC RBC Hgb Hct MCV MCH MCHC RDW Plt Count Neut % (Auto) Lymph % (Auto) [place] % (Auto) Eos % (Auto) Baso % (Auto) Neut # (Auto) Lymph # (Auto) [place] # (Auto) Eos # (Auto) Baso # (Auto) Sodium 141 Potassium 5.3 H Chloride 108 H Carbon Dioxide 24 BUN 45 H Creatinine 2.42 H Estimated GFR 26 L BUN/Creatinine Ratio 18.6 Glucose 130 H D Calcium 8.9 Magnesium Total Bilirubin AST ALT Alkaline Phosphatase NT-Pro-B Natriuret Pep 331 Total Protein Albumin Globulin Albumin/Globulin Ratio Urine Color Yellow Urine Appearance Clear Urine pH 5.5 Ur Specific [place] 1.010 Urine Protein 2+ H Urine Glucose (UA) 1+ H Urine Ketones Negative Urine Occult Blood Trace-lysed Urine Nitrate Negative Urine Bilirubin Negative Urine Urobilinogen 0.2 Ur Leukocyte Esterase Negative Urine RBC None seen Urine WBC None seen Urine Bacteria None seen Ur Culture Indicated? Cult not indicated SARS-CoV-2 (PCR) 03/20/22 03/20/22 03/21/22 22:45 23:17 04:35 WBC 8.0 RBC 5.08 Hgb 14.0 Hct 42.7 MCV 84.0 MCH 27.5 MCHC 32.8 RDW 14.8 Plt Count 172 Neut % (Auto) 70.7 Lymph % (Auto) 15.8 L [place] % (Auto) 10.0 Eos % (Auto) 3.0 Baso % (Auto) 0.5 Neut # (Auto) 5700 Lymph # (Auto) 1300 [place] # (Auto) 800 Eos # (Auto) 200 Baso # (Auto) 0 Sodium Potassium Chloride Carbon Dioxide BUN Creatinine Estimated GFR BUN/Creatinine Ratio Glucose Calcium Magnesium 1.9 Total Bilirubin AST ALT Alkaline Phosphatase NT-Pro-B Natriuret Pep Total Protein Albumin Globulin Albumin/Globulin Ratio Urine Color Yellow Urine Appearance Clear Urine pH 7.0 Ur Specific [place] 1.010 Urine Protein 2+ H Urine Glucose (UA) Negative Urine Ketones Negative Urine Occult Blood Negative Urine Nitrate Negative Urine Bilirubin Negative Urine Urobilinogen 0.2 Ur Leukocyte Esterase Negative Urine RBC None seen Urine WBC None seen Urine Bacteria None seen Ur Culture Indicated? Cult not indicated SARS-CoV-2 (PCR) 03/21/22 04:35 WBC RBC Hgb Hct MCV MCH MCHC RDW Plt Count Neut % (Auto) Lymph % (Auto) [place] % (Auto) Eos % (Auto) Baso % (Auto) Neut # (Auto) Lymph # (Auto) [place] # (Auto) Eos # (Auto) Baso # (Auto) Sodium 140 Potassium 4.7 Chloride 108 H Carbon Dioxide 23 BUN 39 H Creatinine 2.24 H Estimated GFR 28 L BUN/Creatinine Ratio 17.4 Glucose 117 H Calcium 8.6 Magnesium Total Bilirubin 0.7 AST 18 ALT 21 Alkaline Phosphatase 112 NT-Pro-B Natriuret Pep Total Protein 7.0 Albumin 3.7 Globulin 3.3 Albumin/Globulin Ratio 1.1 Urine Color Urine Appearance Urine pH Ur Specific [place] Urine Protein Urine Glucose (UA) Urine Ketones Urine Occult Blood Urine Nitrate Urine Bilirubin Urine Urobilinogen Ur Leukocyte Esterase Urine RBC Urine WBC Urine Bacteria Ur Culture Indicated? 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 Quality VTE Deep Vein Thrombosis/Pulmonary Embolism Present on Admission: No
--- NOTE | 2022-03-21 11:21 | P.DS_ITS ---
History of Present Illness History of Present Illness Chief complaint: SENT BY [facility]./DUE LABS Narrative: Yahir Stratton is a 86 yr old male with history of chronic kidney disease stage IV, Alzheimer's, coronary artery disease with prior bypass, AFIB and on Xarelto,HTN, recent NSTEMI and heart Cath who presented to the ED after having routine labs with primary care, had a potassium of 6.6 at 10:00 a.m. Was referred to the emergency department repeat K+ 6.2 and a bump in creatinine from prior. Patient was admitted for observation while his hyperkalemia and acute kidney injury on chronic kidney disease was evaluated. Patient currently feeling back to his usual self. Discharge Providers Provider Date of admission: 03/20/22 17:52 Discharge Date: 03/21/22 Primary care physician: Rusty Ghotra MD Consults: 03/20/22 19:43 Consult to Dietitian, Adult Routine Comment: Reason For Exam: BMI 30.4, severe hyperkalemia, JOHNNY/CKD 4 03/20/22 19:44 Consult to Discharge Planning Routine Comment: Discharge provider: Jodie Mckeon MD Summary Hospital Course Discharge Diagnosis: Most responsible diagnosis for that length of hospital stay: Hyperkalemia Pre-admit diagnoses: Hyperkalemia Acute on chronic renal failure Atrial Fibrillation Coronary artery disease with history of bypass Recent NSTEMI Type 2 diabetes Post-admit diagnoses: None Secondary diagnoses: Advanced dementia Angina pectoris, unspecified Chronic kidney disease (CKD) stage G4/A1, severely decreased glomerular filtration rate (GFR) between 15-29 mL/min/1.73 square meter and albuminuria creatinine ratio less than 30 mg/g Hypertension associated with chronic kidney disease due to type 2 diabetes mellitus Testicular swelling Hx of cardiac catheterization Hospital Course: Patient presented to [facility] Emergency due to elevated potassium on lab tests in the community. Has a history of chronic kidney disease was in the state of acute on chronic renal failure, in combination with known atrial fibrillation. Place in observation telemetry to monitor and decreased potassium well being certain the patient did not have new arrhythmias. Telmisartan was discontinued since it may be a contributing factor to the hyperkalemia. In lieu of this medication patient was started on chlorthalidone to control blood pressure. Creatinine and GFR resolved to patient's usual baseline with creatinine of 2.24 and a GFR of 28 on the day of discharge. Potassium was 4.7. The patient and the patient's daughter felt like he was in his baseline state at the time of discharge. Status at Discharge Cognitive/behavioral status at discharge: at baseline, confused Functional status at discharge: independent ambulation Overall status at discharge: patient is back to baseline Time Spent with Patient Time spent: Greater than 30 minutes Exam Vital Signs (past 8 hours): - 03/21/22 04:05 03/21/22 04:23 03/21/22 07:48 Temperature 97.5 F L 98.2 F Pulse Rate 82 76 72 Respiratory Rate 18 17 19 Blood Pressure 169/81 H 149/77 H 146/79 H Pulse Oximetry 98 94 Oxygen Flow Rate 0 0 Oxygen Delivery Method Room Air Oxygen Flow Rate 0 Narrative Exam Narrative: General:? In no acute medical distress. HEENT:? Normocephalic, atraumatic, extraocular muscles intact. Neck is supple and symmetric, trachea is midline, no adenopathy, no thyroid enlargement, nonte nder, no masses palpated.? Negative for JVD Chest:? No tachypnea, use of abdominal muscles, no nasal flaring, retractions, or labored breathing. Lungs:? Auscultation of all lung cline are clear without adventitious sounds, wheezes, rhonchi, or rales. Cardio:? S1 & S2 without murmur, rubs, or gallops, no carotid bruit, no cardiac pulsations present. Abdomen:? Soft nontender, negative for organomegaly, or masses.? Bowel sounds are present in all 4 quadrants without guarding or rebound, no CVA tenderness. Musculoskeletal:? Muscle strength and tone are equal within normal limits, no deformity, crepitus, effusions, cyanosis, clubbing or edema present.? Full range of motion intact radial and pedal pulses are normal. Skin:? Warm dry, significant cracking and intact without rashes, ulcerations or petechiae.? Neuro:? Alert and orientated to self only, moves all extremities, sensation to touch intact, no gross deficits noted of cranial nerves. Psych:? No apparent acute depression or mood changes. Objective Labs Result Diagrams: 03/21/22 04:35 03/21/22 04:35 Labs: Laboratory Results - last 24 hr 03/20/22 03/20/22 03/20/22 12:55 15:26 15:44 WBC 9.6 RBC 5.10 Hgb 14.1 Hct 43.2 MCV 84.7 MCH 27.6 MCHC 32.6 RDW 14.8 Plt Count 193 Neut % (Auto) 70.4 Lymph % (Auto) 17.5 L [place] % (Auto) 10.1 Eos % (Auto) 1.3 L Baso % (Auto) 0.7 Neut # (Auto) 6800 Lymph # (Auto) 1700 [place] # (Auto) 1000 H Eos # (Auto) 100 Baso # (Auto) 100 Sodium 140 Potassium 6.2 H Chloride 109 H Carbon Dioxide 18 L BUN 49 H Creatinine 2.54 H Estimated GFR 24 L BUN/Creatinine Ratio 19.3 Glucose 238 H Calcium 9.0 Magnesium Total Bilirubin 0.8 AST 33 ALT 24 Alkaline Phosphatase 120 NT-Pro-B Natriuret Pep Total Protein 7.9 Albumin 4.2 Globulin 3.7 Albumin/Globulin Ratio 1.1 Urine Color Urine Appearance Urine pH Ur Specific [place] Urine Protein Urine Glucose (UA) Urine Ketones Urine Occult Blood Urine Nitrate Urine Bilirubin Urine Urobilinogen Ur Leukocyte Esterase Urine RBC Urine WBC Urine Bacteria Ur Culture Indicated? SARS-CoV-2 (PCR) Negative 03/20/22 03/20/22 03/20/22 15:56 22:45 22:45 WBC RBC Hgb Hct MCV MCH MCHC RDW Plt Count Neut % (Auto) Lymph % (Auto) [place] % (Auto) Eos % (Auto) Baso % (Auto) Neut # (Auto) Lymph # (Auto) [place] # (Auto) Eos # (Auto) Baso # (Auto) Sodium 141 Potassium 5.3 H Chloride 108 H Carbon Dioxide 24 BUN 45 H Creatinine 2.42 H Estimated GFR 26 L BUN/Creatinine Ratio 18.6 Glucose 130 H D Calcium 8.9 Magnesium Total Bilirubin AST ALT Alkaline Phosphatase NT-Pro-B Natriuret Pep 331 Total Protein Albumin Globulin Albumin/Globulin Ratio Urine Color Yellow Urine Appearance Clear Urine pH 5.5 Ur Specific [place] 1.010 Urine Protein 2+ H Urine Glucose (UA) 1+ H Urine Ketones Negative Urine Occult Blood Trace-lysed Urine Nitrate Negative Urine Bilirubin Negative Urine Urobilinogen 0.2 Ur Leukocyte Esterase Negative Urine RBC None seen Urine WBC None seen Urine Bacteria None seen Ur Culture Indicated? Cult not indicated SARS-CoV-2 (PCR) 03/20/22 03/20/22 03/21/22 22:45 23:17 04:35 WBC 8.0 RBC 5.08 Hgb 14.0 Hct 42.7 MCV 84.0 MCH 27.5 MCHC 32.8 RDW 14.8 Plt Count 172 Neut % (Auto) 70.7 Lymph % (Auto) 15.8 L [place] % (Auto) 10.0 Eos % (Auto) 3.0 Baso % (Auto) 0.5 Neut # (Auto) 5700 Lymph # (Auto) 1300 [place] # (Auto) 800 Eos # (Auto) 200 Baso # (Auto) 0 Sodium Potassium Chloride Carbon Dioxide BUN Creatinine Estimated GFR BUN/Creatinine Ratio Glucose Calcium Magnesium 1.9 Total Bilirubin AST ALT Alkaline Phosphatase NT-Pro-B Natriuret Pep Total Protein Albumin Globulin Albumin/Globulin Ratio Urine Color Yellow Urine Appearance Clear Urine pH 7.0 Ur Specific [place] 1.010 Urine Protein 2+ H Urine Glucose (UA) Negative Urine Ketones Negative Urine Occult Blood Negative Urine Nitrate Negative Urine Bilirubin Negative Urine Urobilinogen 0.2 Ur Leukocyte Esterase Negative Urine RBC None seen Urine WBC None seen Urine Bacteria None seen Ur Culture Indicated? Cult not indicated SARS-CoV-2 (PCR) 03/21/22 04:35 WBC RBC Hgb Hct MCV MCH MCHC RDW Plt Count Neut % (Auto) Lymph % (Auto) [place] % (Auto) Eos % (Auto) Baso % (Auto) Neut # (Auto) Lymph # (Auto) [place] # (Auto) Eos # (Auto) Baso # (Auto) Sodium 140 Potassium 4.7 Chloride 108 H Carbon Dioxide 23 BUN 39 H Creatinine 2.24 H Estimated GFR 28 L BUN/Creatinine Ratio 17.4 Glucose 117 H Calcium 8.6 Magnesium Total Bilirubin 0.7 AST 18 ALT 21 Alkaline Phosphatase 112 NT-Pro-B Natriuret Pep Total Protein 7.0 Albumin 3.7 Globulin 3.3 Albumin/Globulin Ratio 1.1 Urine Color Urine Appearance Urine pH Ur Specific [place] Urine Protein Urine Glucose (UA) Urine Ketones Urine Occult Blood Urine Nitrate Urine Bilirubin Urine Urobilinogen Ur Leukocyte Esterase Urine RBC Urine WBC Urine Bacteria Ur Culture Indicated? SARS-CoV-2 (PCR) [facility] Medical History Advanced dementia Angina pectoris, unspecified CAD (coronary artery disease) of artery bypass graft Chronic kidney disease (CKD) stage G4/A1, severely decreased glomerular filtr ation rate (GFR) between 15-29 mL/min/1.73 square meter and albuminuria creatinine ratio less than 30 mg/g 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 Testicular swelling Surgical History Hx of cardiac catheterization Family History Father Heart disease Brother Heart disease Brother Heart disease Daughter Heart disease Other Hyperlipidemia Social History household members: significant other and family Smoking Status: Former smoker alcohol intake: current Discharge Plan Discharge Plan Patient Disposition: Home Provider Discharge Comment: Obtain new medication at the pharmacy on the way home and follow up with primary care physician within 1 week. Discharge orders & Medications Prescriptions: New chlorthalidone 25 mg Tablet 12.5 mg PO DAILY Qty: 30 0RF Continued amlodipine 10 mg tablet 10 mg PO DAILY metoprolol succinate [Toprol XL] 50 mg tablet extended release 24 hr 50 mg PO DAILY nitroglycerin 6.5 MG capsule, extended release 6.5 mg PO BID Qty: 0 Xarelto 15 mg Tablet 15 mg PO QPM Rx Instructions: must administer with evening meal atorvastatin 40 mg tablet 40 mg PO BEDTIME Qty: 30 0RF Discontinued telmisartan 40 mg tablet 40 mg PO DAILY Follow up/Referrals: Rusty Ghotra DO [Primary Care Provider] - Diet/Activity/Treatments Diet: Low-protein/Renal Discharge Data Primary Care Provider: Rusty Ghotra Attending Provider: Gregorio Hernandez VTE Deep Vein Thrombosis/Pulmonary Embolism Present on Admission: No
--- NOTE | 2022-03-21 12:01 | PC.NURSE ---
Pt is dressed and ready for discharge home with Daughter. IV and tele have been removed. Went over d/c instructions with daughter (at Pt request)-discussed d/c meds, time of last dose, reviewed renal diet, discussed awareness of blood thinners, diuretics, and bp meds and what to watch for. reviewed stroke education, and follow up. Pt daughter and Pt denied further questions and Pt was taken out via w/c by [facility] to POV with Daughter Stacy and all belongings.
== END 2022-03-21 12:04 | disposition home or self-care (01) ==
LOC: ED 17:52 → AC 17:54 → ICU 19:00
PROVIDERS: Nurse Practitioner Family; Admitting Provider Internal Medicine; Emergency Provider Emergency Medicine; PCP Student in an Organized Health Care Education/Training Program; Referring Provider Emergency Medicine; Visit Provider Internal Medicine
DX: E87.5 Hyperkalemia (principal); N17.8 Other acute kidney failure; I12.9 Hypertensive chronic kidney disease with stage 1 through stage 4 chronic kidney disease, or unspecified chronic kidney disease; N18.4 Chronic kidney disease, stage 4 (severe); I25.10 Atherosclerotic heart disease of native coronary artery without angina pectoris; G30.9 Alzheimer's disease, unspecified; F02.80 Dementia in other diseases classified elsewhere, unspecified severity, without behavioral disturbance, psychotic disturbance, mood disturbance, and anxiety; I48.20 Chronic atrial fibrillation, unspecified; E78.5 Hyperlipidemia, unspecified; I25.2 Old myocardial infarction; Z79.01 Long term (current) use of anticoagulants; Z66 Do not resuscitate; Z20.822 Contact with and (suspected) exposure to COVID-19
CPT/HCPCS: 36415; 71045; 74176; 80048; 80053; 81001; 82962; 83735; 83880; 85025; 87635; 93005; 93010; 96361; 96374; 96375; 99284; 99285; C9803; G0378; J0610

== ENCOUNTER → 2022-05-01 13:24 | Outpatient (CLI) | payer MEDICARE, OTHER, SELFPAY ==
[2022-03-20 17:57] VITALS: BMI 30.4
[2022-05-01 14:14] LABS: Add Manual Diff / Slide Review NO; Basophils Absolute Auto 0 /uL (0-100); Basophils Percent Auto 0.4 % (0-2); Eosinophils Absolute Auto 200 /uL (0-450); Eosinophils Percent Auto 2.1 % (2-4); Hematocrit 43.9 % (41-53); Hemoglobin 14.7 g/dL (13.5-17.5); Lymphocytes Absolute Auto 1700 /uL (1100-4500); Mean Corpuscular HGB Conc 33.5 % (30-36); Mean Corpuscular Volume 83.5 fL (80-100); Monocytes Absolute Auto 900 /uL (0-900); Monocytes Percent Auto 10.8 % (3-14); Neutrophils Absolute Auto 5800 /uL (1500-7000); Neutrophils Percent Auto 66.7 % (50-75); Platelet Count 214 X10^3/uL (150-400); Red Blood Cell Count 5.26 X10^6/uL (4.5-5.9); Red Cell Distribution Width 15.1 % (11.6-14.8); White Blood Cell Count 8.6 X10^3/uL (4.5-11.0)
[2022-05-01 14:33] LABS: BUN Creatinine Ratio 17.3 (6-22); Blood Urea Nitrogen 44 mg/dL (9-20); Calcium 8.7 mg/dL (8.4-10.2); Carbon Dioxide 25 mmol/L (22-32); Chloride 102 mmol/L (98-107); Estimated Glomerular Filt Rate 24 mL/min (>60); Glucose 202 mg/dL (80-110); HEMOLYSIS < 15 (0-50); Potassium 4.1 mmol/L (3.4-5.1); Sodium 140 mmol/L (137-145)
== END ==
PROVIDERS: PCP Student in an Organized Health Care Education/Training Program; Referring Provider Internal Medicine Nephrology; Visit Provider Internal Medicine Nephrology
DX: N18.4 Chronic kidney disease, stage 4 (severe) (principal)
CPT/HCPCS: 36415; 80069; 85025

== ENCOUNTER → 2022-08-23 12:15 | Outpatient (CLI) | payer MEDICARE, OTHER, SELFPAY ==
[2022-03-20 17:57] VITALS: BMI 30.4
[2022-08-23 13:03] LABS: Add Manual Diff / Slide Review NO; Basophils Absolute Auto 0 /uL (0-100); Basophils Percent Auto 0.4 % (0-2); Eosinophils Absolute Auto 200 /uL (0-450); Eosinophils Percent Auto 2.1 % (2-4); Hematocrit 45.7 % (41-53); Lymphocytes Absolute Auto 1900 /uL (1100-4500); Mean Corpuscular HGB Conc 32.9 % (30-36); Mean Corpuscular Hemoglobin 27.6 PG (26-34); Mean Corpuscular Volume 83.8 fL (80-100); Monocytes Absolute Auto 1000 /uL (0-900); Monocytes Percent Auto 11.6 % (3-14); Neutrophils Absolute Auto 5300 /uL (1500-7000); Neutrophils Percent Auto 62.9 % (50-75); Platelet Count 202 X10^3/uL (150-400); Red Blood Cell Count 5.45 X10^6/uL (4.5-5.9); Red Cell Distribution Width 14.9 % (11.6-14.8); White Blood Cell Count 8.4 X10^3/uL (4.5-11.0)
[2022-08-23 13:24] LABS: BUN Creatinine Ratio 14.4 (6-22); Blood Urea Nitrogen 38 mg/dL (9-20); Calcium 8.9 mg/dL (8.4-10.2); Carbon Dioxide 27 mmol/L (22-32); Chloride 103 mmol/L (98-107); Estimated Glomerular Filt Rate 23 mL/min (>60); Glucose 202 mg/dL (80-110); HEMOLYSIS < 15 (0-50); Phosphorous 3.7 mg/dL (2.3-3.7); Sodium 142 mmol/L (137-145)
== END ==
PROVIDERS: PCP Student in an Organized Health Care Education/Training Program; Referring Provider Internal Medicine Nephrology; Visit Provider Internal Medicine Nephrology
DX: N18.4 Chronic kidney disease, stage 4 (severe) (principal)
CPT/HCPCS: 36415; 80069; 85025

== ENCOUNTER → 2023-01-02 12:50 | Outpatient (CLI) | payer MEDICARE, OTHER, SELFPAY ==
[2022-03-20 17:57] VITALS: BMI 30.4
[2023-01-02 13:59] LABS: Hematocrit 46.1 % (41-53); Mean Corpuscular HGB Conc 34.7 % (30-36); Mean Corpuscular Hemoglobin 28.2 PG (26-34); Mean Corpuscular Volume 81.2 fL (80-100); Platelet Count 308 X10^3/uL (150-400); Red Blood Cell Count 5.68 X10^6/uL (4.5-5.9); Red Cell Distribution Width 14.5 % (11.6-14.8)
[2023-01-02 15:31] LABS: Albumin 3.9 g/dL (3.5-5.0); BUN Creatinine Ratio 19.8 (6-22); Blood Urea Nitrogen 53 mg/dL (9-20); Calcium 8.9 mg/dL (8.4-10.2); Carbon Dioxide 28 mmol/L (22-32); Chloride 96 mmol/L (98-107); Estimated Glomerular Filt Rate 23 mL/min (>60); Glucose 218 mg/dL (80-110); HEMOLYSIS 40 (0-50); Phosphorous 3.9 mg/dL (2.3-3.7); Sodium 137 mmol/L (137-145)
[2023-01-02 16:48] LABS: Creatinine Urine Random 169.6 mg/dL
[2023-01-02 19:10] LABS: Microalbumi Creatinin Ratio Ur 1098.4 ug/mg CR (<30); Microalbumin Urine Random 186.3 mg/dL (0-1.6)
[2023-01-02 19:47] LABS: Vitamin D 25 Hydroxy (D3) 22.7 ng/mL (30.0-100.0)
[2023-01-03 10:38] LABS: Parathyroid Hormone Int 92 pg/mL (15-65)
== END ==
PROVIDERS: PCP Student in an Organized Health Care Education/Training Program; Referring Provider Internal Medicine Nephrology; Visit Provider Internal Medicine Nephrology
DX: N18.4 Chronic kidney disease, stage 4 (severe) (principal); E83.39 Other disorders of phosphorus metabolism; R80.9 Proteinuria, unspecified
CPT/HCPCS: 36415; 80069; 82043; 82306; 82570; 83970; 85027

== ENCOUNTER 2023-02-20 07:38 | Inpatient (IN) | payer MEDICARE, OTHER, SELFPAY ==
[2022-03-20 17:57] VITALS: BMI 30.4
[2023-02-20] VITALS (39 sets, daily range): BP systolic 125–197; BP diastolic 64–96; PULSE 88–118; RESP 14–47; TEMP 36.1; O2SAT 66–100; BMI 26.5; BMI 24.9
--- NOTE | 2023-02-20 07:46 | DI.RAD.S_ITS ---
PROCEDURE: XR CHEST 1V INDICATIONS: chest pain TECHNIQUE: One view of the chest was acquired. COMPARISON: [facility], CR, XR CHEST 1V, 03/20/2022, 14:38. FINDINGS: Surgical changes and devices: None. Lungs and pleura: Lungs are clear. No pleural effusions or pneumothorax. Mediastinum: Mediastinal contours appear normal. Heart size is normal. Bones and chest wall: No suspicious bony lesions. Overlying soft tissues appear unremarkable. IMPRESSION: Portable chest within normal limits for age. Dictated by: Jaclyn Mejía M.D. on 02/20/2023 at 8:31 Approved by: Jaclyn Mejía M.D. on 02/20/2023 at 8:32
--- NOTE | 2023-02-20 07:46 | DI.CT.S_ITS ---
PROCEDURE: CT HEAD/BRAIN WO CON INDICATIONS: fall on Xarelto TECHNIQUE: Noncontrast 4.5 mm thick angled axial sections acquired from the foramen magnum to the vertex, with coronal and sagittal reformats. For radiation dose reduction, the following was used: automated exposure control, adjustment of mA and/or kV according to patient size. COMPARISON: [facility], CT, CT CERVICAL SPINE WO CON, 02/20/2023, 8:11. FINDINGS: Image quality: Excellent. CSF spaces: Basal cisterns are patent. No extra-axial fluid collections. The ventricles are symmetric in size and shape. Brain: No intracranial bleeds or masses. There is cerebral volume loss for age, with resultant ventricular and sulcal prominence. There are periventricular and deep white matter chronic small vessel ischemic changes. There is intracranial internal carotid artery atherosclerosis. Lacunar ischemia is present in the basal ganglia bilaterally as well as left langston radiata. Skull and face: Calvarium and visualized facial bones appear intact, without suspicious lesions. Sinuses: Visualized sinuses and mastoids are clear. IMPRESSION: 1. No acute intracranial process. 2. Moderate to severe atrophy and chronic microvascular ischemic changes. Dictated by: Jaclyn Mejía M.D. on 02/20/2023 at 8:29 Approved by: Jaclyn Mejía M.D. on 02/20/2023 at 8:30
--- NOTE | 2023-02-20 07:46 | ED_ITS ---
HPI - Fall General Chief Complaint: Fall Stated Complaint: GLF, unkn downtime Time Seen by Provider: 02/20/23 07:44 History of Present Illness HPI Narrative: Patient 87-year-old male history of chronic kidney disease stage 4, Alzheimer's disease, CAD with bypass, atrial fibrillation on Xarelto, hypertension presents today after ground level fall. He lives at home with family. Apparently has dementia lives with son but according to EMS son was also a poor historian. Patient was found on the ground this morning by the son. Son put him to bed last night. Has a injury to his left elbow, small laceration. No obvious head injury. There are reports of a family illness but on known details of this illness. Patient is able to follow commands. Not complaining of pain. Related Data Home Medications Medication Instructions Recorded Confirmed nitroglycerin 6.5 mg 6.5 mg PO BID ##0 10/07/12 02/20/23 capsule,extended release amlodipine 10 mg tablet 10 mg PO DAILY 06/10/20 02/20/23 metoprolol succinate 50 mg 50 mg PO DAILY 06/10/20 02/20/23 tablet,extended release 24 hr (Toprol XL) rivaroxaban 15 mg tablet (Xarelto) 15 mg PO QPM 09/06/21 02/20/23 Previous Rx's Medication Instructions Recorded atorvastatin 40 mg tablet 40 mg PO BEDTIME #30 tabs 09/08/21 chlorthalidone 25 mg tablet 12.5 mg PO DAILY #30 tabs 03/21/22 Allergies Allergy/AdvReac Type Severity Reaction Status Date / Time cholera vaccine Allergy Unknown Verified 09/06/21 15:29 diphenhydramine AdvReac Severe Hallucinati Verified 03/20/22 19:29 [From Benadryl] ng Review of Systems Review of Systems ROS Unobtainable: All systems reviewed & are unremarkable except as noted in HPI and below 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 Testicular swelling Surgical History Hx of cardiac catheterization Family History Father Heart disease Brother Heart disease Brother Heart disease Daughter Heart disease Other Hyperlipidemia Social History household members: significant other and family Smoking Status: Former smoker alcohol intake: current Smoking Status: Former smoker alcohol intake frequency: holidays/special occasions only Substance Use Type: does not use Exam Initial Vital Signs Initial Vital Signs: Vital Signs Temperature 96.9 F L 02/20/23 07:44 Pulse Rate 118 H 02/20/23 07:44 Respiratory Rate 20 02/20/23 07:44 Blood Pressure 144/85 H 02/20/23 07:44 Pulse Oximetry 94 02/20/23 07:44 Oxygen Delivery Method Room Air 02/20/23 07:44 GENERAL: Alert elderly 87-year-old male HEENT: Head atraumatic, growth right side of head EOMI, pupils reactive, face symmetric, dry mucous membranes NECK: Supple no vertebral tenderness CARDIOVASCULAR: Irregularly irregular no murmur RESPIRATORY: Breath sounds equal bilaterally, no wheezes rales or rhonchi. Nontener. No Respiratory distress ABDOMEN: Soft, nontender. Normoactive bowel sounds all 4 quadrants. No guardin g or rebound. EXTREMITIES: Normal range of motion, no clubbing or edema. Neurovascularly intact. 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 Course Orders Ordered: ED Orders 02/20/23 10:27 Troponin & CK Cardiac Panel Stat 02/20/23 11:06 US abdomen limited Stat 02/20/23 12:21 Urinalysis and Microscopic Stat Acetaminophen (Acetaminophen 325 Mg Tablet) 650 mg PO Q6H PRN PRN Reason: Fever/Mild Pain (1-3) Dexamethasone (Dexamethasone 10 Mg/Ml Vial) 6 mg IV DAILY OWEN Heparin Sodium (Porcine) (Heparin Flush (Cl/Picc/Mid-Line) 50 Unit/5 Ml Syringe) 50 unit IV BID OWEN Sodium Chloride (Normal Saline 0.9%) 1,000 mls @ 150 mls/hr IV CONT OWEN Last Infusion: 02/20/23 15:08 Dose: 0 mls/hr Documented By: Admin: 02/20/23 08:27 Dose: 150 mls/hr Documented By: Remdesivir 100 mg/ Sodium (Chloride) 250 mls @ 250 mls/hr IV DAILY OWEN Stop: 02/28/23 09:59 Last Infusion: 02/20/23 10:45 Dose: 0 mls/hr Documented By: Admin: 02/20/23 09:44 Dose: 250 mls/hr Documented By: ST Ceftriaxone Sodium 1,000 mg/ (Sodium Chloride) 100 mls @ 200 mls/hr IV Q24H [facility] Last Admin: 02/20/23 15:36 Dose: 200 mls/hr Documented By: MS Azithromycin 500 mg/ Dextrose 250 mls @ 250 mls/hr IV Q24H [facility] Stop: 02/23/23 15:59 Last Admin: 02/20/23 15:37 Dose: 250 mls/hr Documented By: MS Metoprolol Succinate (Metoprolol Er 50 Mg Tablet) 50 mg PO DAILY [facility] Quetiapine Fumarate (Quetiapine 25 Mg Tablet) 25 mg PO BEDTIME OWEN Rivaroxaban (Rivaroxaban 10 Mg Tablet) 15 mg PO QPM [facility] Last Admin: 02/20/23 16:35 Dose: 15 mg Documented By: MS Discontinued Medications Atorvastatin Calcium (Atorvastatin 20 Mg Tablet) 40 mg PO BEDTIME OWEN Dexamethasone (Dexamethasone 10 Mg/Ml Vial) 6 mg IV NOW ONE Stop: 02/20/23 09:20 Last Admin: 02/20/23 09:52 Dose: 6 mg Documented By: Piperacillin Sod/Tazobactam (Sod 4.5 gm/ Sodium Chloride) 100 mls @ 200 mls/hr IV NOW ONE Stop: 02/20/23 09:22 Last Infusion: 02/20/23 10:30 Dose: 0 mls/hr Documented By: Admin: 02/20/23 09:52 Dose: 200 mls/hr Documented By: Sodium Chloride (Normal Saline 0.9%) 2,590.92 mls @ 863.64 mls/hr 30 ml/kg infuse over 3 hr (2590.92 ml) IV NOW ONE Stop: 02/20/23 12:20 Last Infusion: 02/20/23 12:50 Dose: 0 mls/hr Documented By: Admin: 02/20/23 09:46 Dose: 863.64 mls/hr Documented By: Vital Signs Vital signs: Vital Signs - 8 hr 02/20/23 10:38 02/20/23 11:00 02/20/23 11:01 Pulse Rate 108 H 104 H 101 H Respiratory Rate 22 26 H 29 H Blood Pressure 197/96 H Pulse Oximetry 91 93 93 Oxygen Delivery Method Oxygen Flow Rate 02/20/23 11:01 02/20/23 11:30 02/20/23 11:30 Pulse Rate 96 H Respiratory Rate 17 Blood Pressure 149/64 H 144/79 H Pulse Oximetry 97 Oxygen Delivery Method High Flow Nasal Cannula Oxygen Flow Rate 50 02/20/23 12:00 02/20/23 12:03 02/20/23 12:03 Pulse Rate 108 H 103 H Respiratory Rate 34 H 27 H Blood Pressure 148/81 H Pulse Oximetry 94 97 Oxygen Delivery Method Oxygen Flow Rate 02/20/23 12:30 02/20/23 12:30 Pulse Rate 99 H Respiratory Rate 15 Blood Pressure 158/90 H Pulse Oximetry 98 Oxygen Delivery Method Oxygen Flow Rate MDM - Fall Lab Data 02/20/23 08:05 02/20/23 15:11 Labs: Lab Results 02/20/23 02/20/23 02/20/23 Range/Units 07:57 08:05 08:05 WBC 16.2 H (4.5-11.0) X10^3/uL RBC 5.54 (4.5-5.9) X10^6/uL Hgb 15.5 (13.5-17.5) g/dL Hct 46.8 (41-53) % MCV 84.5 (80-100) fL MCH 27.9 (26-34) PG MCHC 33.0 (30-36) % RDW 15.2 H (11.6-14.8) % Plt Count 210 (150-400) X10^3/uL Neut % (Auto) 87.8 H (50-75) % Lymph % (Auto) 3.2 L (25-40) % [place] % (Auto) 8.8 (3-14) % Eos % (Auto) 0.0 L (2-4) % Baso % (Auto) 0.2 (0-2) % Neut # (Auto) 66784 H (6987-2222) /uL Lymph # (Auto) 500 L (5536-1144) /uL [place] # (Auto) 1400 H (0-900) /uL Eos # (Auto) 0 (0-450) /uL Baso # (Auto) 0 (0-100) /uL PT 21.7 H (10.1-12.7) SECONDS INR 1.9 H (0.9-1.3) APTT 33 (26-36) SECONDS ABG pH (7.35-7.45) ABG pCO2 (35-45) mmHg ABG pO2 (80-100) mmHg ABG HCO3 (23-27) mmol/L ABG Total CO2 (23-27) mmol/L ABG O2 Saturation (95-100) % ABG Base Excess (-2-3) mmol/L FiO2 Sodium (137-145) mmol/L Potassium (3.4-5.1) mmol/L Chloride (98-107) mmol/L Carbon Dioxide (22-32) mmol/L BUN (9-20) mg/dL Creatinine (0.66-1.25) mg/dL Estimated GFR (>60) mL/min BUN/Creatinine Ratio (6-22) Glucose (80-110) mg/dL Lactate (0.7-2.1) mmol/L Calcium (8.4-10.2) mg/dL Total Bilirubin (0.2-1.3) mg/dL AST (17-59) IU/L ALT (<50) IU/L Alkaline Phosphatase (38-126) U/L Total Creatine Kinase (55-170) U/L Troponin I (0.01-0.034) ng/mL NT-Pro-B Natriuret Pep (<450) pg/mL Total Protein (6.3-8.2) g/dL Albumin (3.5-5.0) g/dL Globulin (1.7-4.1) g/dL Albumin/Globulin Ratio (1.0-2.8) Lipase (23-300) U/L Procalcitonin (<0.5) ng/mL Urine Color Urine Appearance Urine pH (4.5-8.0) Ur Specific Shubert (1.000-1.035) Urine Protein (Negative) Urine Glucose (UA) (Negative) g/dL Urine Ketones (NEGATIVE) Urine Occult Blood (Negative) Urine Nitrate (Negative) Urine Bilirubin (NEGATIVE) Urine Urobilinogen (0.2) E.U./dL Ur Leukocyte Esterase (NEGATIVE) Urine RBC (0-5/HPF) Urine WBC (0-5/HPF) Ur Squamous Epith Cells (0-5/HPF) Amorphous Sediment Urine Bacteria (None) Ur Culture Indicated? SARS-CoV-2 (PCR) Positive H (Negative) Influenza A (RT-PCR) Flu a negative (NEGATIVE) Influenza B (RT-PCR) Flu b negative (NEGATIVE) RSV (PCR) Negative (Negative) 02/20/23 02/20/23 02/20/23 Range/Units 08:05 08:05 08:05 WBC (4.5-11.0) X10^3/uL RBC (4.5-5.9) X10^6/uL Hgb (13.5-17.5) g/dL Hct (41-53) % MCV (80-100) fL MCH (26-34) PG MCHC (30-36) % RDW (11.6-14.8) % Plt Count (150-400) X10^3/uL Neut % (Auto) (50-75) % Lymph % (Auto) (25-40) % [place] % (Auto) (3-14) % Eos % (Auto) (2-4) % Baso % (Auto) (0-2) % Neut # (Auto) (3197-2879) /uL Lymph # (Auto) (2114-8585) /uL [place] # (Auto) (0-900) /uL Eos # (Auto) (0-450) /uL Baso # (Auto) (0-100) /uL PT (10.1-12.7) SECONDS INR (0.9-1.3) APTT (26-36) SECONDS ABG pH (7.35-7.45) ABG pCO2 (35-45) mmHg ABG pO2 (80-100) mmHg ABG HCO3 (23-27) mmol/L ABG Total CO2 (23-27) mmol/L ABG O2 Saturation (95-100) % ABG Base Excess (-2-3) mmol/L FiO2 Sodium 137 (137-145) mmol/L Potassium 5.1 (3.4-5.1) mmol/L Chloride 100 (98-107) mmol/L Carbon Dioxide 7 L* (22-32) mmol/L BUN 45 H (9-20) mg/dL Creatinine 4.18 H (0.66-1.25) mg/dL Estimated GFR 13 L (>60) mL/min BUN/Creatinine Ratio 10.8 (6-22) Glucose 263 H (80-110) mg/dL Lactate 12.1 H* (0.7-2.1) mmol/L Calcium 9.1 (8.4-10.2) mg/dL Total Bilirubin 1.1 (0.2-1.3) mg/dL AST 428 H (17-59) IU/L ALT 244 H (<50) IU/L Alkaline Phosphatase 128 H (38-126) U/L Total Creatine Kinase 74119 H (55-170) U/L Troponin I 13.300 H* (0.01-0.034) ng/mL NT-Pro-B Natriuret Pep 34879 H (<450) pg/mL Total Protein 8.1 (6.3-8.2) g/dL Albumin 4.4 (3.5-5.0) g/dL Globulin 3.7 (1.7-4.1) g/dL Albumin/Globulin Ratio 1.2 (1.0-2.8) Lipase 858 H (23-300) U/L Procalcitonin 4.82 H (<0.5) ng/mL Urine Color Urine Appearance Urine pH (4.5-8.0) Ur Specific Shubert (1.000-1.035) Urine Protein (Negative) Urine Glucose (UA) (Negative) g/dL Urine Ketones (NEGATIVE) Urine Occult Blood (Negative) Urine Nitrate (Negative) Urine Bilirubin (NEGATIVE) Urine Urobilinogen (0.2) E.U./dL Ur Leukocyte Esterase (NEGATIVE) Urine RBC (0-5/HPF) Urine WBC (0-5/HPF) Ur Squamous Epith Cells (0-5/HPF) Amorphous Sediment Urine Bacteria (None) Ur Culture Indicated? SARS-CoV-2 (PCR) (Negative) Influenza A (RT-PCR) (NEGATIVE) Influenza B (RT-PCR) (NEGATIVE) RSV (PCR) (Negative) 02/20/23 02/20/23 02/20/23 Range/Units 09:00 10:27 10:27 WBC (4.5-11.0) X10^3/uL RBC (4.5-5.9) X10^6/uL Hgb (13.5-17.5) g/dL Hct (41-53) % MCV (80-100) fL MCH (26-34) PG MCHC (30-36) % RDW (11.6-14.8) % Plt Count (150-400) X10^3/uL Neut % (Auto) (50-75) % Lymph % (Auto) (25-40) % [place] % (Auto) (3-14) % Eos % (Auto) (2-4) % Baso % (Auto) (0-2) % Neut # (Auto) (0198-5258) /uL Lymph # (Auto) (7000-8745) /uL [place] # (Auto) (0-900) /uL Eos # (Auto) (0-450) /uL Baso # (Auto) (0-100) /uL PT (10.1-12.7) SECONDS INR (0.9-1.3) APTT (26-36) SECONDS ABG pH 7.30 L (7.35-7.45) ABG pCO2 26.5 L (35-45) mmHg ABG pO2 134 H (80-100) mmHg ABG HCO3 13 L (23-27) mmol/L ABG Total CO2 14 L (23-27) mmol/L ABG O2 Saturation 99 (95-100) % ABG Base Excess -14.0 L (-2-3) mmol/L FiO2 36 Sodium (137-145) mmol/L Potassium (3.4-5.1) mmol/L Chloride (98-107) mmol/L Carbon Dioxide (22-32) mmol/L BUN (9-20) mg/dL Creatinine (0.66-1.25) mg/dL Estimated GFR (>60) mL/min BUN/Creatinine Ratio (6-22) Glucose (80-110) mg/dL Lactate 5.6 H* (0.7-2.1) mmol/L Calcium (8.4-10.2) mg/dL Total Bilirubin (0.2-1.3) mg/dL AST (17-59) IU/L ALT (<50) IU/L Alkaline Phosphatase (38-126) U/L Total Creatine Kinase 32892 H (55-170) U/L Troponin I 10.900 H* (0.01-0.034) ng/mL NT-Pro-B Natriuret Pep (<450) pg/mL Total Protein (6.3-8.2) g/dL Albumin (3.5-5.0) g/dL Globulin (1.7-4.1) g/dL Albumin/Globulin Ratio (1.0-2.8) Lipase (23-300) U/L Procalcitonin (<0.5) ng/mL Urine Color Urine Appearance Urine pH (4.5-8.0) Ur Specific [place] (1.000-1.035) Urine Protein (Negative) Urine Glucose (UA) (Negative) g/dL Urine Ketones (NEGATIVE) Urine Occult Blood (Negative) Urine Nitrate (Negative) Urine Bilirubin (NEGATIVE) Urine Urobilinogen (0.2) E.U./dL Ur Leukocyte Esterase (NEGATIVE) Urine RBC (0-5/HPF) Urine WBC (0-5/HPF) Ur Squamous Epith Cells (0-5/HPF) Amorphous Sediment Urine Bacteria (None) Ur Culture Indicated? SARS-CoV-2 (PCR) (Negative) Influenza A (RT-PCR) (NEGATIVE) Influenza B (RT-PCR) (NEGATIVE) RSV (PCR) (Negative) 02/20/23 02/20/23 Range/Units 12:21 12:44 WBC (4.5-11.0) X10^3/uL RBC (4.5-5.9) X10^6/uL Hgb (13.5-17.5) g/dL Hct (41-53) % MCV (80-100) fL MCH (26-34) PG MCHC (30-36) % RDW (11.6-14.8) % Plt Count (150-400) X10^3/uL Neut % (Auto) (50-75) % Lymph % (Auto) (25-40) % [place] % (Auto) (3-14) % Eos % (Auto) (2-4) % Baso % (Auto) (0-2) % Neut # (Auto) (4575-1195) /uL Lymph # (Auto) (8827-9005) /uL [place] # (Auto) (0-900) /uL Eos # (Auto) (0-450) /uL Baso # (Auto) (0-100) /uL PT (10.1-12.7) SECONDS INR (0.9-1.3) APTT (26-36) SECONDS ABG pH (7.35-7.45) ABG pCO2 (35-45) mmHg ABG pO2 (80-100) mmHg ABG HCO3 (23-27) mmol/L ABG Total CO2 (23-27) mmol/L ABG O2 Saturation (95-100) % ABG Base Excess (-2-3) mmol/L FiO2 Sodium (137-145) mmol/L Potassium (3.4-5.1) mmol/L Chloride (98-107) mmol/L Carbon Dioxide (22-32) mmol/L BUN (9-20) mg/dL Creatinine (0.66-1.25) mg/dL Estimated GFR (>60) mL/min BUN/Creatinine Ratio (6-22) Glucose (80-110) mg/dL Lactate 3.7 H (0.7-2.1) mmol/L Calcium (8.4-10.2) mg/dL Total Bilirubin (0.2-1.3) mg/dL AST (17-59) IU/L ALT (<50) IU/L Alkaline Phosphatase (38-126) U/L Total Creatine Kinase (55-170) U/L Troponin I (0.01-0.034) ng/mL NT-Pro-B Natriuret Pep (<450) pg/mL Total Protein (6.3-8.2) g/dL Albumin (3.5-5.0) g/dL Globulin (1.7-4.1) g/dL Albumin/Globulin Ratio (1.0-2.8) Lipase (23-300) U/L Procalcitonin (<0.5) ng/mL Urine Color Yellow Urine Appearance Sl cloudy Urine pH 5.0 (4.5-8.0) Ur Specific [place]ubert 1.025 (1.000-1.035) Urine Protein 3+ H (Negative) Urine Glucose (UA) Trace H (Negative) g/dL Urine Ketones Trace H (NEGATIVE) Urine Occult Blood 3+ H (Negative) Urine Nitrate Negative (Negative) Urine Bilirubin Negative (NEGATIVE) Urine Urobilinogen 1.0 (0.2) E.U./dL Ur Leukocyte Esterase Negative (NEGATIVE) Urine RBC 10-30/hpf H (0-5/HPF) Urine WBC None seen (0-5/HPF) Ur Squamous Epith Cells 0-1 /hpf (0-5/HPF) Amorphous Sediment 2+ Urine Bacteria None seen (None) Ur Culture Indicated? Cult not indicated SARS-CoV-2 (PCR) (Negative) Influenza A (RT-PCR) (NEGATIVE) Influenza B (RT-PCR) (NEGATIVE) RSV (PCR) (Negative) Imaging Data Chest x-ray: Radiologist's Impression: PROCEDURE:? XR CHEST 1V ? INDICATIONS:? chest pain ? TECHNIQUE:? One view of the chest was acquired.? ? COMPARISON:? [facility], CR, XR CHEST 1V, 03/20/2022, 14:38. ? FINDINGS:? ? Surgical changes and devices:? None.? ? Lungs and pleura:? Lungs are clear.? No pleural effusions or pneumothorax.? ? Mediastinum:? Mediastinal contours appear normal.? Heart size is normal.? ? Bones and chest wall:? No suspicious bony lesions.? Overlying soft tissues appear unremarkable.? ? ? IMPRESSION:? Portable chest within normal limits for age. ? ? Dictated by: Jaclyn Mejía M.D. on 02/20/2023 at 8:31 ? ? Approved by: Jaclyn Mejía M.D. on 02/20/2023 at 8:32 ? CT scan - head: Radiologist's Impression: PROCEDURE:? CT HEAD/BRAIN WO CON ? INDICATIONS:? fall on Xarelto ? TECHNIQUE:? Noncontrast 4.5 mm thick angled axial sections acquired from the foramen magnum to the vertex, with coronal and sagittal reformats.? For radiation dose reduction, the following was used:? automated exposure control, adjustment of mA and/or kV according to patient size.? ? COMPARISON:? [facility], CT, CT CERVICAL SPINE WO CON, 02/20/2023, 8:11. ? FINDINGS:? Image quality:? Excellent.? ? CSF spaces:? Basal cisterns are patent.? No extra-axial fluid collections.? The ventricles are symmetric in size and shape.? ? Brain:? No intracranial bleeds or masses.? There is cerebral volume loss for age, with resultant ventricular and sulcal prominence.? There are periventricular and deep white matter chronic small vessel ischemic changes.? There is intracranial internal carotid artery atherosclerosis.? Lacunar ischemia is present in the basal ganglia bilaterally as well as left langston radiata. ? Skull and face:? Calvarium and visualized facial bones appear intact, without suspicious lesions.? ? Sinuses:? Visualized sinuses and mastoids are clear.? ? IMPRESSION:? ? 1. No acute intracranial process. ? 2. Moderate to severe atrophy and chronic microvascular ischemic changes. ? ? Dictated by: Jaclyn Mejía M.D. on 02/20/2023 at 8:29 CT - cervical spine: Radiologist's Impression: PROCEDURE:? CT CERVICAL SPINE WO CON ? INDICATIONS:? fall ? TECHNIQUE:? Noncontrast 3 mm thick sections acquired from the skull base to the T4 level.? Sagittal and coronal reformats were then constructed.? For radiation dose reduction, the following was used:? automated exposure control, adjustment of mA and/or kV according to patient size.? ? COMPARISON:? [facility], CT, CT HEAD/BRAIN WO CON, 02/20/2023, 8:11. ? FINDINGS:? Image quality:? Excellent.? ? Bones:? No fractures or dislocations.? Visualized superior ribs are intact.? Multilevel degenerative changes are present. ? Soft tissues:? Prevertebral soft tissues are normal in thickness.? No paravertebral hematomas.? No apical pneumothoraces.? ? ? IMPRESSION:? Degenerative changes without visualized fracture. ? Dictated by: Jaclyn Mejía M.D. on 02/20/2023 at 8:30 ? ? Approved by: Jaclyn Mejía M.D. on 02/20/2023 at 8:31 ? MDM Narrative Medical decision making narrative: Patient 87-year-old male with advanced dementia but able to answer questions chronic kidney disease presenting today with unknown down time. He actually is alert able to follow some commands communicate some. He is to be hypoxic difficult to get an O2 sat on him but not in any sort of respiratory distress. He is also immediately found to be COVID LABS: WBC 16.2, bicarb 7, BUN 45, creatinine 4.18, previous is 2.68 01/02/2023, lactate 12.1, AST 428, ALT 244, pulse 128, troponin 13.3, CPK 21,599, AST 428, ALT 244 CT scans reviewed and negative chest x-ray negative Patient is given septic fluids for elevated lactate rhabdomyolysis. COVID is treated with remdesiviand dexamethasone. Zosyn is given empirically for antibiotic with elevated procalcitonin of 4.2 elevated lactate and leukocytosis of 16 Liver enzymes are also noted to be elevated he is no right upper quadrant pain ultrasound shows cholelithiasis without cholecystitis no elevated bilirubin. I suspect elevated liver enzymes or possibly from rhabdomyolysis possible congestive heart failure as well Stacy COLLINS (confirmed by scanned and living will) reports DNR DNI medical management only. Long discussion about probable poor prognosis. She understands. Previous medical records have been reviewed previously cardiology has been consulted who recommended only medical management for elevated troponin at that time as well. DENNIS Stacy is very at about about no aggressive treatments but supportive measures are okay including high-flow nasal cannula. Patient surprisingly looks better than his lab values. He is awake alert interactive poor memory but can follow some commands. No significant tachypnea or dyspnea not complaining of any pain. Dr. Rodriguez in ED to see patient. He is personally spoken with daughter himself accepts patient to ICU Critical Care Time Critical Care Time Critical Care Time: Yes Total Critical Care Time: 65 Attestation: The high probability of a clinically significant, sudden or life threatening deterioration of the [cardiovascular] system(s) required my full and direct attention, intervention and personal management. The aggregate critical care time was 65 minutes. This time is in addition to time spent performing reported procedures but includes the following: [x] Data Review and interpretation [x] Patient assessment and monitoring of vital signs [x] Documentation [x] Medication orders and management Discharge Plan Departure Patient Disposition: Admitted As Inpatient Clinical Impression: COVID-19, Acute non-ST elevation myocardial infarction (NSTEMI), Sepsis, Rhabdomyolysis due to COVID-19 Admit Date/Time: 02/20/23 12:46 Admit Provider: Meharn Rodriguez
--- NOTE | 2023-02-20 07:46 | DI.CT.S_ITS ---
PROCEDURE: CT CERVICAL SPINE WO CON INDICATIONS: fall TECHNIQUE: Noncontrast 3 mm thick sections acquired from the skull base to the T4 level. Sagittal and coronal reformats were then constructed. For radiation dose reduction, the following was used: automated exposure control, adjustment of mA and/or kV according to patient size. COMPARISON: [facility], CT, CT HEAD/BRAIN WO CON, 02/20/2023, 8:11. FINDINGS: Image quality: Excellent. Bones: No fractures or dislocations. Visualized superior ribs are intact. Multilevel degenerative changes are present. Soft tissues: Prevertebral soft tissues are normal in thickness. No paravertebral hematomas. No apical pneumothoraces. IMPRESSION: Degenerative changes without visualized fracture. Dictated by: Jaclyn Mejía M.D. on 02/20/2023 at 8:30 Approved by: Jaclyn Mejía M.D. on 02/20/2023 at 8:31
[2023-02-20 08:26] LABS: Add Manual Diff / Slide Review NO; Basophils Absolute Auto 0 /uL (0-100); Basophils Percent Auto 0.2 % (0-2); Eosinophils Absolute Auto 0 /uL (0-450); Hematocrit 46.8 % (41-53); Hemoglobin 15.5 g/dL (13.5-17.5); Lymphocytes Absolute Auto 500 /uL (1100-4500); Lymphocytes Percent Auto 3.2 % (25-40); Mean Corpuscular Hemoglobin 27.9 PG (26-34); Mean Corpuscular Volume 84.5 fL (80-100); Monocytes Absolute Auto 1400 /uL (0-900); Monocytes Percent Auto 8.8 % (3-14); Neutrophils Absolute Auto 14300 /uL (1500-7000); Neutrophils Percent Auto 87.8 % (50-75); Platelet Count 210 X10^3/uL (150-400); Red Blood Cell Count 5.54 X10^6/uL (4.5-5.9); Red Cell Distribution Width 15.2 % (11.6-14.8); White Blood Cell Count 16.2 X10^3/uL (4.5-11.0)
[2023-02-20] MEDS: SODIUM CHLORIDE 0.9% 1,000 ML 150 ML IV (08:27)
[2023-02-20 08:28] LABS: INR 1.9 (0.9-1.3); Prothrombin Time 21.7 SECONDS (10.1-12.7)
[2023-02-20 08:31] LABS: PTT Partial Thromboplastin Tim 33 SECONDS (26-36)
[2023-02-20 08:35] LABS: Albumin 4.4 g/dL (3.5-5.0); Albumin Globulin Ratio 1.2 (1.0-2.8); Alkaline Phosphatase 128 U/L (38-126); Aspartate Aminotransferase 428 IU/L (17-59); BUN Creatinine Ratio 10.8 (6-22); Bilirubin Total 1.1 mg/dL (0.2-1.3); Blood Urea Nitrogen 45 mg/dL (9-20); Calcium 9.1 mg/dL (8.4-10.2); Chloride 100 mmol/L (98-107); Estimated Glomerular Filt Rate 13 mL/min (>60); Globulin 3.7 g/dL (1.7-4.1); Glucose 263 mg/dL (80-110); Lipase 858 U/L (23-300); Potassium 5.1 mmol/L (3.4-5.1); Sodium 137 mmol/L (137-145); Total Protein 8.1 g/dL (6.3-8.2)
[2023-02-20 08:42] LABS: Alanine Aminotransferase 244 IU/L (<50); HEMOLYSIS 23 (0-50)
--- NOTE | 2023-02-20 08:45 | PC.NURSE ---
Pt desatted to 88, placed on NC and repositioned, continued to desat to 66%, placed on NRB 15L and O2 sat rebounded to 95%. Dr. Moran notified, RT called. Pt denies discomfort, dyspnea, or pain. No change in mentation noted.
[2023-02-20 08:49] LABS: Carbon Dioxide 7 mmol/L (22-32)
[2023-02-20 08:49] LABS: Influenza A - CEPHEID Flu A NEGATIVE (NEGATIVE); Influenza B - CEPHEID Flu B NEGATIVE (NEGATIVE); Respiratory Syncytial Virus Negative (Negative)
[2023-02-20 08:50] LABS: Lactate (Lactic Acid) 12.1 mmol/L (0.7-2.1); Procalcitonin 4.82 ng/mL (<0.5)
[2023-02-20 08:57] LABS: COVID-19 CEPHEID 4-PLEX PCR POSITIVE (Negative)
[2023-02-20 09:13] LABS: Creatine Kinase 21599 U/L (55-170)
[2023-02-20 09:24] LABS: NT-proBNP (BNP-Adult 18+) 13000 pg/mL (<450)
[2023-02-20] MEDS: REMDESIVIR 100 MG in SODIUM CHLORIDE 0.9% 250 ML 250 MG IV (09:44)
[2023-02-20 09:46] LABS: PCO2 ABG 26.5 mmHg (35-45)
[2023-02-20] MEDS: SODIUM CHLORIDE 0.9% 863.64 ML IV (09:46)
[2023-02-20] MEDS: DEXAMETHASONE 10 MG/ML VIAL 6 MG IV (09:52)
[2023-02-20] MEDS: PIPERACILLIN/TAZO 4.5 GM in SODIUM CHLORIDE 0.9% 100 ML IV (09:52)
[2023-02-20 10:05] LABS: Fractionated Inspired Oxygen 36; HCO3 ABG 13 mmol/L (23-27); Oxygen Saturation ABG 99 % (95-100); PO2 ABG 134 mmHg (80-100); TCO2 ABG 14 mmol/L (23-27)
[2023-02-20 10:12] LABS: Reflexed Lactate in 2 Hours Y
--- NOTE | 2023-02-20 11:06 | DI.US.S_ITS ---
PROCEDURE: US ABDOMEN LIMITED INDICATIONS: RIGHT UPPER QUADRANT PAIN TECHNIQUE: Real-time focused scanning was performed of the abdomen, with image documentation. COMPARISON: None. FINDINGS: Gallstones are present without wall thickening, measuring 2 mm. No biliary dilation. Incidental finding of simple right renal cyst. IMPRESSION: Cholelithiasis without cholecystitis. Dictated by: Jaclyn Mejía M.D. on 02/20/2023 at 12:36 Approved by: Jaclyn Mejía M.D. on 02/20/2023 at 12:41
[2023-02-20 11:10] LABS: Lactate 2HR (Lactic Acid Rflx) 5.6 mmol/L (0.7-2.1)
--- NOTE | 2023-02-20 12:30 | PC.NURSE ---
Pt unable to urinate. Provider notified. Indwelling catheter placed. 150 ml output.
[2023-02-20 13:05] LABS: Lactate (Lactic Acid) 3.7 mmol/L (0.7-2.1)
--- NOTE | 2023-02-20 14:03 | PC.NURSE ---
Called report to MOY Harding
--- NOTE | 2023-02-20 14:26 | P.HP_ITS ---
History of Present Illness History of Present Illness Date Patient Seen: 02/20/23 Time Patient Seen: 11:00 Chief complaint: GLF, unkn downtime Narrative: Yahir Stratton is a 86 yr old male with history of chronic kidney disease stage IV, Alzheimer's, coronary artery disease with prior bypass, AFIB and on Xarelto,HTN, prior NSTEMI who was brought to the ER after being found on the ground by his son. No additional history is known and the patient does not recall why he in in the emergency room at this time. Discussed with daughter and she is unclear as to presentation and quite shocked to hear patient has COVID. He denies any chest pain or shortness of breath today. No swelling in his feet or his legs. He has no abdominal pain, or nausea currently. In the emergency room, he was mildly tachycardic and severely hypoxic requiring heated high-flow to maintain O2 saturations above 90%. Laboratory evaluation revealed a mild leukocytosis with WBC 16.2 mild INR elevation, carbon dioxide of 7 and a lactate of over 12. Creatinine was 4.18 from a baseline of around 2. AST was 428, ALT was 244, total CK was markedly elevated at 21,599, initial troponin was 13.3 which down trended to 10.9[place] [address]. Pro- Calcitonin was elevated at 4.82. Glucose was 263. Lactate has improved with fluids, and blood gas showed improvement in his carbon dioxide as well to 14. Repeat labs ordered. He was admitted to the ICU for further management. Discussed with daughter severity of her father's presentation, and performed goals of care discussion. She would like limited measures including steroids, labs, fluids, antibiotics, diuresis. Not interested in transfer for higher level of care. Patient in DNR/DNI. She did express that should he worsen, they had been discussing hospice recently and would probably persue comfort measures. 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 2 diabetes amaris itus Hypertension associated with chronic kidney disease due to type 2 diabetes mellitus Testicular swelling Surgical History Hx of cardiac catheterization Family History Father Heart disease Brother Heart disease Brother Heart disease Daughter Heart disease Other Hyperlipidemia Social History household members: significant other and family Smoking Status: Former smoker alcohol intake: current Meds Home Medications and Allergies Home Medications Medication Instructions Recorded Confirmed Type nitroglycerin 6.5 mg 6.5 mg PO BID ##0 10/07/12 03/20/22 History capsule,extended release amlodipine 10 mg tablet 10 mg PO DAILY 06/10/20 03/20/22 History metoprolol succinate 50 mg 50 mg PO DAILY 06/10/20 03/20/22 History tablet,extended release 24 hr (Toprol XL) rivaroxaban 15 mg tablet (Xarelto) 15 mg PO QPM 09/06/21 03/20/22 History atorvastatin 40 mg tablet 40 mg PO BEDTIME #30 tabs 09/08/21 03/20/22 Rx chlorthalidone 25 mg tablet 12.5 mg PO DAILY #30 tabs 03/21/22 Rx Allergies Allergy/AdvReac Type Severity Reaction Status Date / Time cholera vaccine Allergy Unknown Verified 09/06/21 15:29 diphenhydramine AdvReac Severe Hallucinati Verified 03/20/22 19:29 [From Benadyesenial] ng Review of Systems Review of Systems Narrative: All other systems reviewed with the patient and are negative unless otherwise stated. Exam Vital Signs (past 8 hours): - 02/20/23 07:44 02/20/23 08:20 02/20/23 08:30 Temperature 96.9 F L Pulse Rate 118 H 113 H 109 H Respiratory Rate 20 28 H 31 H Blood Pressure 144/85 H 132/74 141/84 H Pulse Oximetry 94 94 100 Oxygen Delivery Method Room Air Room Air Room Air Oxygen Flow Rate 02/20/23 08:45 02/20/23 08:54 02/20/23 08:40 Temperature Pulse Rate 109 H 108 H Respiratory Rate 25 H 24 Blood Pressure 141/84 H Pulse Oximetry 100 97 66 L Oxygen Delivery Method Non -Rebreather Nasal Cannula Oxygen Flow Rate 15 6 02/20/23 09:28 02/20/23 09:30 02/20/23 10:00 Temperature Pulse Rate 109 H 109 H 111 H Respiratory Rate 22 32 H 34 H Blood Pressure 141/84 H Pulse Oximetry 97 95 86 L Oxygen Delivery Method Oxygen Flow Rate 02/20/23 10:04 02/20/23 10:04 02/20/23 10:38 Temperature Pulse Rate 108 H 108 H Respiratory Rate 22 22 Blood Pressure 197/96 H 197/96 H Pulse Oximetry 91 91 Oxygen Delivery Method Oxygen Flow Rate 02/20/23 10:30 02/20/23 10:31 02/20/23 10:31 Temperature Pulse Rate 106 H 104 H Respiratory Rate 22 27 H Blood Pressure 156/93 H Pulse Oximetry 92 Oxygen Delivery Method High Flow Nasal Cannula Oxygen Flow Rate 50 02/20/23 11:00 02/20/23 11:01 02/20/23 11:01 Temperature Pulse Rate 104 H 101 H Respiratory Rate 26 H 29 H Blood Pressure 149/64 H Pulse Oximetry 93 93 Oxygen Delivery Method Oxygen Flow Rate 02/20/23 11:30 02/20/23 11:30 02/20/23 12:00 Temperature Pulse Rate 96 H 108 H Respiratory Rate 17 34 H Blood Pressure 144/79 H Pulse Oximetry 97 94 Oxygen Delivery Method High Flow Nasal Cannula Oxygen Flow Rate 50 02/20/23 12:03 02/20/23 12:03 02/20/23 12:30 Temperature Pulse Rate 103 H Respiratory Rate 27 H Blood Pressure 148/81 H 158/90 H Pulse Oximetry 97 Oxygen Delivery Method Oxygen Flow Rate 02/20/23 12:30 02/20/23 13:00 02/20/23 13:30 Temperature Pulse Rate 99 H 118 H Respiratory Rate 15 47 H Blood Pressure 164/95 H Pulse Oximetry 98 95 Oxygen Delivery Method Oxygen Flow Rate 02/20/23 13:30 02/20/23 14:01 02/20/23 14:01 Temperature Pulse Rate 102 H 101 H Respiratory Rate 18 22 Blood Pressure 158/91 H Pulse Oximetry 98 99 Oxygen Delivery Method High Flow Nasal Cannula Oxygen Flow Rate 50 50 Oxygen Delivery Method High Flow Nasal Cannula Oxygen Flow Rate 50 Narrative Exam Narrative: General:? Patient is well developed and well nourished, in no distress at this time on heated high flow via nasal cannula HEENT:? Normocephalic, atraumatic, extraocular muscles intact, oral pharynx is clear and mucous membranes are moist. Neck: supple and symmetric, trachea is midline, no cervical adenopathy. Negative for JVD Chest:? Normal AP diameter and contour without kyphoscoliosis, no tachypnea, equal chest rise bilaterally. Lungs:?diminished bilaterally but CTA B/l Cardio:?RRR no m/r/g. Abdomen: S NT ND. Musculoskeletal:? Muscle strength and tone are equal within normal limits, no deformity. Extremities: No edema or joint effusions. No cyanosis or clubbing. Skin:? Pale,? Warm to touch,dry and intact without rashes, ulcerations or petechiae.? Neuro:? Alert and orientated to name only,? sensation to touch intact in all extremities, no gross deficits noted of cranial nerves. Psych:? Patient has a well-kept appearance, appropriate affect, mental status attitude thought context and judgment are appropriate for age. Objective Labs 02/20/23 08:05 02/20/23 08:05 Labs: Laboratory Results - last 24 hr 02/20/23 02/20/23 02/20/23 07:57 08:05 08:05 WBC 16.2 H RBC 5.54 Hgb 15.5 Hct 46.8 MCV 84.5 MCH 27.9 MCHC 33.0 RDW 15.2 H Plt Count 210 Neut % (Auto) 87.8 H Lymph % (Auto) 3.2 L [place] % (Auto) 8.8 Eos % (Auto) 0.0 L Baso % (Auto) 0.2 Neut # (Auto) 25217 H Lymph # (Auto) 500 L [place] # (Auto) 1400 H Eos # (Auto) 0 Baso # (Auto) 0 PT 21.7 H INR 1.9 H APTT 33 ABG pH ABG pCO2 ABG pO2 ABG HCO3 ABG Total CO2 ABG O2 Saturation ABG Base Excess FiO2 Sodium Potassium Chloride Carbon Dioxide BUN Creatinine Estimated GFR BUN/Creatinine Ratio Glucose Lactate Calcium Total Bilirubin AST ALT Alkaline Phosphatase Total Creatine Kinase Troponin I NT-Pro-B Natriuret Pep Total Protein Albumin Globulin Albumin/Globulin Ratio Lipase Procalcitonin SARS-CoV-2 (PCR) Positive H Influenza A (RT-PCR) Flu a negative Influenza B (RT-PCR) Flu b negative RSV (PCR) Negative 02/20/23 02/20/23 02/20/23 08:05 08:05 08:05 WBC RBC Hgb Hct MCV MCH MCHC RDW Plt Count Neut % (Auto) Lymph % (Auto) [place] % (Auto) Eos % (Auto) Baso % (Auto) Neut # (Auto) Lymph # (Auto) [place] # (Auto) Eos # (Auto) Baso # (Auto) PT INR APTT ABG pH ABG pCO2 ABG pO2 ABG HCO3 ABG Total CO2 ABG O2 Saturation ABG Base Excess FiO2 Sodium 137 Potassium 5.1 Chloride 100 Carbon Dioxide 7 L* BUN 45 H Creatinine 4.18 H Estimated GFR 13 L BUN/Creatinine Ratio 10.8 Glucose 263 H Lactate 12.1 H* Calcium 9.1 Total Bilirubin 1.1 AST 428 H ALT 244 H Alkaline Phosphatase 128 H Total Creatine Kinase 87083 H Troponin I 13.300 H* NT-Pro-B Natriuret Pep 17650 H Total Protein 8.1 Albumin 4.4 Globulin 3.7 Albumin/Globulin Ratio 1.2 Lipase 858 H Procalcitonin 4.82 H SARS-CoV-2 (PCR) Influenza A (RT-PCR) Influenza B (RT-PCR) RSV (PCR) 02/20/23 02/20/23 02/20/23 09:00 10:27 10:27 WBC RBC Hgb Hct MCV MCH MCHC RDW Plt Count Neut % (Auto) Lymph % (Auto) [place] % (Auto) Eos % (Auto) Baso % (Auto) Neut # (Auto) Lymph # (Auto) [place] # (Auto) Eos # (Auto) Baso # (Auto) PT INR APTT ABG pH 7.30 L ABG pCO2 26.5 L ABG pO2 134 H ABG HCO3 13 L ABG Total CO2 14 L ABG O2 Saturation 99 ABG Base Excess -14.0 L FiO2 36 Sodium Potassium Chloride Carbon Dioxide BUN Creatinine Estimated GFR BUN/Creatinine Ratio Glucose Lactate 5.6 H* Calcium Total Bilirubin AST ALT Alkaline Phosphatase Total Creatine Kinase 48600 H Troponin I 10.900 H* NT-Pro-B Natriuret Pep Total Protein Albumin Globulin Albumin/Globulin Ratio Lipase Procalcitonin SARS-CoV-2 (PCR) Influenza A (RT-PCR) Influenza B (RT-PCR) RSV (PCR) 02/20/23 12:44 WBC RBC Hgb Hct MCV MCH MCHC RDW Plt Count Neut % (Auto) Lymph % (Auto) [place] % (Auto) Eos % (Auto) Baso % (Auto) Neut # (Auto) Lymph # (Auto) [place] # (Auto) Eos # (Auto) Baso # (Auto) PT INR APTT ABG pH ABG pCO2 ABG pO2 ABG HCO3 ABG Total CO2 ABG O2 Saturation ABG Base Excess FiO2 Sodium Potassium Chloride Carbon Dioxide BUN Creatinine Estimated GFR BUN/Creatinine Ratio Glucose Lactate 3.7 H Calcium Total Bilirubin AST ALT Alkaline Phosphatase Total Creatine Kinase Troponin I NT-Pro-B Natriuret Pep Total Protein Albumin Globulin Albumin/Globulin Ratio Lipase Procalcitonin SARS-CoV-2 (PCR) Influenza A (RT-PCR) Influenza B (RT-PCR) RSV (PCR) Assessment & Plan Assessment & Plan narrative: 1. Sepsis secondary to COVID with acute respiratory failure with hypoxia, acute on chronic renal failure, lactic acidosis - abdominal ultrasound without evidence of cholecystitis, but did have stones. - continue empiric antibiotics with ceftriaxone and azithromycin given presentation, follow up UA (not collected yet) and blood cultures. Possible superimposed bacterial pneumonia seems most likely though CXR is negative (consider repeat CXR after fluids given). Procalcitonin is elevated at 4.6. - continue IV fluids, appears dry with rhabdomyolysis as well. - continue to wean from O2 as tolerated. - Continue remdesevir and dexamethasone 6 mg IV Daily for severe COVID. - lactate improving with fluid - performed POCUS at beside, EF was grossly normal. Given COVID, echo will not change current management so will not order at this time. Should his respiratory status change will consider ordering. 2. Rhabdomyolysis, atraumatic. - continue IV fluids, though if worsening respiratory status will need to stop. - monitor UOP closeley. - repeat BMP now and follow closely. Daughter not interested in dialysis if needed. 3. Transaminase levels elevated. - likely related to sepsis and hypoperfusion. Abdominal ultrasound without acute pathology or ductal dilatation. - continue to follow. 4. Probable NSTEMI - patient with previous NSTEMI and medical management recommended. - possible this represents demand, but patient is on anticoagulation and management will not change. - continue home anticoagulation with xarelto 5. Alzheimer's dementia - ecnourage daytime awakening, night rest. High risk for ICU delirium. 6. chronic atrial fibrillation on anticoagulation. - continue home metoprolol and xarelto. 7. HTN, chronic - hold home amlodipine, diuretic (chlorthalidone) in setting of sepsis. 8. CAD with Hx CABG. - asa statin therpay to continue along with xarelto. 9. CKD stage IV (with JOHNNY) - continue to monitor renal function closely and renally dose medications as appropriate. 10. Advanced care planning. - I have spent 20 minutes involved in the advanced care planning of this patient. Discussed further above in the HPI. Code: DNR/DNI, surrogate decision maker is patient's daughter. DVT: on AC I have utilized all available immediate resources to obtain, update, or review the patient's current medications. I spent 60 minutes providing critical care management this patient. This excludes time spent in performing separately billed procedures. COVID-19 COVID-19 status: Positive Quality VTE Deep Vein Thrombosis/Pulmonary Embolism Present on Admission: No MIPS - Admit I confirm the patient?s Advance Care Plan is present, Code status is documented, Surrogate decision maker is in patient?s record [If Yes, STOP here]: Yes
[2023-02-20 14:57] LABS: Reflexed Lactate in 2 Hours Y
[2023-02-20 15:24] LABS: MRSA (Nasal) PCR Not Detected (Not Detect)
[2023-02-20 15:30] LABS: Alanine Aminotransferase 524 IU/L (<50); Albumin 3.6 g/dL (3.5-5.0); Albumin Globulin Ratio 1.1 (1.0-2.8); Alkaline Phosphatase 113 U/L (38-126); Bilirubin Total 0.9 mg/dL (0.2-1.3); Blood Urea Nitrogen 53 mg/dL (9-20); Calcium 8.3 mg/dL (8.4-10.2); Carbon Dioxide 17 mmol/L (22-32); Chloride 107 mmol/L (98-107); Estimated Glomerular Filt Rate 15 mL/min (>60); Globulin 3.3 g/dL (1.7-4.1); Glucose 236 mg/dL (80-110); HEMOLYSIS < 15 (0-50); Magnesium 2.4 mg/dL (1.6-2.3); Potassium 4.8 mmol/L (3.4-5.1); Sodium 138 mmol/L (137-145); Total Protein 6.9 g/dL (6.3-8.2)
[2023-02-20 15:33] LABS: Appearance Urine UA SL CLOUDY; Bilirubin Urine UA NEGATIVE (NEGATIVE); Color Urine UA YELLOW; Glucose Urine UA TRACE g/dL (Negative); Ketones Urine UA TRACE (NEGATIVE); Leukocyte Esterase Urine UA NEGATIVE (NEGATIVE); Nitrite Urine UA NEGATIVE (Negative); Occult Blood Urine UA 3+ (Negative); Protein Urine UA 3+ (Negative); Specific Gravity Urine UA 1.025 (1.000-1.035)
[2023-02-20] MEDS: cefTRIAXone 1,000 MG in SODIUM CHLORIDE 0.9% 100 ML 200 MG IV (15:36)
[2023-02-20] MEDS: AZITHROMYCIN 500 MG in DEXTROSE 5% IN WATER 250 ML 250 MG IV (15:37)
[2023-02-20 15:45] LABS: Aspartate Aminotransferase 889 IU/L (17-59)
[2023-02-20 15:58] LABS: Bacteria Urine None Seen; RBC Urine 10-30/HPF (0-5/HPF); Squamous Epithelial Cell Urine 0-1 /HPF (0-5/HPF); WBC Urine None Seen (0-5/HPF)
[2023-02-20 15:59] LABS: Amorphous Sediment Urine 2+; Culture Indicated Urine Cult Not Indicated
--- NOTE | 2023-02-20 16:21 | PC.NURSE ---
Midline placed upper lt arm. Infiltrate noted to lt ac area with puffiness and redness noted, Lt AC IV dc'd intact, no bleeding noted.
[2023-02-20 16:29] LABS: Lactate 2HR (Lactic Acid Rflx) 2.5 mmol/L (0.7-2.1)
[2023-02-20] MEDS: RIVAROXABAN 10 MG TABLET 15 MG PO (16:35)
--- NOTE | 2023-02-20 17:30 | PC.ADMIT ---
[id number] [facility] Admission Note: The patient,Yahir Stratton,87 y/o, was given written information regarding hospital policies, unit procedures and contact persons. Patient's smoking status: Former smoker. Vital Signs - 8 hr 02/20/23 10:00 02/20/23 10:04 02/20/23 10:04 Temperature Pulse Rate 111 H 108 H Respiratory Rate 34 H 22 Blood Pressure 197/96 H Pulse Oximetry 86 L 91 Oxygen Delivery Method Oxygen Flow Rate Fraction of Inspired Oxygen 02/20/23 10:38 02/20/23 10:30 02/20/23 10:31 Temperature Pulse Rate 108 H 106 H 104 H Respiratory Rate 22 22 27 H Blood Pressure 197/96 H Pulse Oximetry 91 92 Oxygen Delivery Method High Flow Nasal Cannula Oxygen Flow Rate 50 Fraction of Inspired Oxygen 02/20/23 10:31 02/20/23 11:00 02/20/23 11:01 Temperature Pulse Rate 104 H 101 H Respiratory Rate 26 H 29 H Blood Pressure 156/93 H Pulse Oximetry 93 93 Oxygen Delivery Method Oxygen Flow Rate Fraction of Inspired Oxygen 02/20/23 11:01 02/20/23 11:30 02/20/23 11:30 Temperature Pulse Rate 96 H Respiratory Rate 17 Blood Pressure 149/64 H 144/79 H Pulse Oximetry 97 Oxygen Delivery Method High Flow Nasal Cannula Oxygen Flow Rate 50 Fraction of Inspired Oxygen 02/20/23 12:00 02/20/23 12:03 02/20/23 12:03 Temperature Pulse Rate 108 H 103 H Respiratory Rate 34 H 27 H Blood Pressure 148/81 H Pulse Oximetry 94 97 Oxygen Delivery Method Oxygen Flow Rate Fraction of Inspired Oxygen 02/20/23 12:30 02/20/23 12:30 02/20/23 13:00 Temperature Pulse Rate 99 H 118 H Respiratory Rate 15 47 H Blood Pressure 158/90 H Pulse Oximetry 98 95 Oxygen Delivery Method Oxygen Flow Rate Fraction of Inspired Oxygen 02/20/23 13:30 02/20/23 13:30 02/20/23 14:01 Temperature Pulse Rate 102 H Respiratory Rate 18 Blood Pressure 164/95 H 158/91 H Pulse Oximetry 98 Oxygen Delivery Method Oxygen Flow Rate 50 Fraction of Inspired Oxygen 02/20/23 14:01 02/20/23 13:52 02/20/23 14:48 Temperature Pulse Rate 101 H 91 H Respiratory Rate 22 18 Blood Pressure 158/91 H Pulse Oximetry 99 92 Oxygen Delivery Method High Flow Nasal Cannula Heated High Flow Oxygen Flow Rate 50 Fraction of Inspired Oxygen 02/20/23 14:09 02/20/23 14:30 02/20/23 15:00 Temperature 96.9 F L Pulse Rate 97 H 93 H 100 H Respiratory Rate 16 14 27 H Blood Pressure 158/91 H Pulse Oximetry 100 93 90 L Oxygen Delivery Method Oxygen Flow Rate 50 Fraction of Inspired Oxygen 45 Pt arrived via gurney with RT at bedside to connect HHF, pt moved to bed via slide board, connected to all monitoring equipment, oriented to room and call light system, however pt has severe dementia and has a tendency to pull at all lines and remove telemetry leads, BP cuff, PIV. Pt not able to use call light system so needs close monitoring. Midline placed due to PIV infiltration, need for continued lab draws, and ABX, pt tolerated procedure well. Bed low and locked, alarm on, will continue to monitor closely.
[2023-02-20] MEDS: QUETIAPINE 25 MG TABLET PO (20:07)
[2023-02-20 20:41] LABS: Lactate 2HR (Lactic Acid Rflx) 1.9 mmol/L (0.7-2.1)
[2023-02-21] VITALS (21 sets, daily range): BP systolic 118–176; BP diastolic 64–108; PULSE 84–105; RESP 12–36; TEMP 36.2–36.4; O2SAT 85–100
[2023-02-21 04:37] LABS: Add Manual Diff / Slide Review NO; Basophils Absolute Auto 0 /uL (0-100); Basophils Percent Auto 0.3 % (0-2); Eosinophils Absolute Auto 0 /uL (0-450); Hematocrit 38.8 % (41-53); Lymphocytes Absolute Auto 500 /uL (1100-4500); Lymphocytes Percent Auto 3.3 % (25-40); Mean Corpuscular HGB Conc 33.6 % (30-36); Mean Corpuscular Volume 83.3 fL (80-100); Monocytes Absolute Auto 700 /uL (0-900); Monocytes Percent Auto 4.4 % (3-14); Neutrophils Absolute Auto 14100 /uL (1500-7000); Platelet Count 133 X10^3/uL (150-400); Red Blood Cell Count 4.65 X10^6/uL (4.5-5.9); Red Cell Distribution Width 14.8 % (11.6-14.8); White Blood Cell Count 15.3 X10^3/uL (4.5-11.0)
[2023-02-21 04:50] LABS: Alanine Aminotransferase 631 IU/L (<50); Albumin 3.1 g/dL (3.5-5.0); Alkaline Phosphatase 89 U/L (38-126); BUN Creatinine Ratio 16.6 (6-22); Bilirubin Total 0.6 mg/dL (0.2-1.3); Blood Urea Nitrogen 71 mg/dL (9-20); Calcium 7.8 mg/dL (8.4-10.2); Carbon Dioxide 20 mmol/L (22-32); Chloride 104 mmol/L (98-107); Estimated Glomerular Filt Rate 13 mL/min (>60); Glucose 286 mg/dL (80-110); HEMOLYSIS < 15 (0-50); Magnesium 2.5 mg/dL (1.6-2.3); Potassium 4.6 mmol/L (3.4-5.1); Sodium 134 mmol/L (137-145); Total Protein 6.1 g/dL (6.3-8.2)
[2023-02-21 05:07] LABS: Aspartate Aminotransferase 694 IU/L (17-59)
[2023-02-21 05:08] LABS: Creatine Kinase 16398 U/L (55-170)
[2023-02-21] MEDS: METOPROLOL ER 50 MG TABLET PO (08:48)
[2023-02-21] MEDS: DEXAMETHASONE 10 MG/ML VIAL 6 MG IV (08:48)
[2023-02-21] MEDS: SODIUM CHLORIDE 0.9% 1,000 ML 150 ML IV ×2 (08:49→17:37)
[2023-02-21] MEDS: REMDESIVIR 100 MG in SODIUM CHLORIDE 0.9% 250 ML 250 MG IV (09:01)
--- NOTE | 2023-02-21 09:33 | DI.RAD.S_ITS ---
PROCEDURE: XR CHEST 1V INDICATIONS: wheezing, hypoxia, assess for poss fluid overload TECHNIQUE: One view of the chest was acquired. COMPARISON: [facility], CR, XR CHEST 1V, 02/20/2023, 8:13. [facility], CR, XR CHEST 1V, 03/20/2022, 14:38. FINDINGS: Surgical changes and devices: None. Lungs and pleura: Lungs are clear. No pleural effusions or pneumothorax. Mediastinum: Mediastinal contours appear normal. Heart size is normal. Bones and chest wall: No suspicious bony lesions. Overlying soft tissues appear unremarkable. IMPRESSION: Portable chest within normal limits for age. No pulmonary edema. Dictated by: Gabriel Correia M.D. on 02/21/2023 at 10:09 Approved by: Gabriel Correia M.D. on 02/21/2023 at 10:10
--- NOTE | 2023-02-21 14:34 | CM.DANOTE ---
Initial DCP Assessment Note Pt is an 87 yo male, resident of [place], PMH includes Alz dementia, CKD stage IV w/prior NSTEMI comes in via EMS after GLF, unknown down time Patient found to be COVID+ PCP: Rusty Ghotra Payer: [employer] Reviewed chart, placed call to patient's son Calin. Patient lives w/spouse, also demented, son Calin lives on their property in a mobile home and is the primary caregiver for his parents. Patient/spouse have one caregiver that visits three times per week for two hours- mostly does house keeping according to son. Calin admits he needs help, has been caring for his parents who need an increasing amount of assistance and that have progressive dementia. Calin denies h/o HH or SNF. Asked if patient and spouse could afford additional caregivers and/or if family has considered facility care ? Calin explains his sister Stacy Gilbert P [phone] has financial POA and is looking into these things. Asked what Calin is hopeful for when patient discharges, Calin responds vaguely, says he doesn't know if his father will return home. Will plan to contact sister Stacy to discuss assessment of need and dispo options further. JOAQUIM Maldonado Discharge Planning/Care Management CM Discharge Assessment Start: 02/21/23 14:22 Freq: Status: Active Protocol: Document 02/21/23 14:22 ROMELIA (Rec: 02/21/23 14:34 ROMELIA [id number]) Discharge Planning Assessment Assigned Foot Piece Assembler JOAQUIM Hagen DPOA/Assigned Designee Name neymar Torres and Stacy Gilbert, sister Contact Information Calin: [phone] Stacy: [phone] Advance Directives? Yes: Advance Directive DPOA Living Will Advance Directives on File Yes History Provided By Family Member,Medical Record Prior Living Arrangements House Household Members significant other,family Comment Son lives outside patient's home in his mobile home Type of transporation used prior to Relies on Others admit Independent with ADL's No Is patient alert and oriented? No: Alz dementia Needs Assistance With Bathing,Eating,Grooming,Meal Prep,Toileting,Managing Medications,Home Chores / Shopping Comment Having increased falls per son , often cannot get off the toilet, sedentary lifestyle. Spouse also has memory issues and has been declining at home Comment Caregiver x3 weekly 2 hours ea visit- helps with housekeeping, some assist with ADLs Barriers to Discharge Yes Comment Return home w/family vs SNF vs [facility] (?) COVID+ may be a barrier, patient/spouse/son/ sister all are COVID+ Transportation Arrangement TBD Additional Comment TBD
--- NOTE | 2023-02-21 14:45 | P.PN_ITS ---
Subjective Subjective Interval history: 87 M admitted with a number of issues, including NSTEMI, COVID with respiratory failure, rhabdomyolysis with JOHNNY. Overnight fluids were held given concern for worsening hypoxia. Today his creatinine gee, restarted on fluids, and is now only on 4L via NC. He feels well, denies complaints. Exam Vital Signs (past 8 hours): - 02/21/23 07:33 02/21/23 07:00 02/21/23 08:00 Temperature 97.6 F Pulse Rate 89 Respiratory Rate 18 Blood Pressure 133/64 Pulse Oximetry 93 Oxygen Delivery Method Heated High Flow 02/21/23 08:00 02/21/23 08:06 02/21/23 08:06 Temperature Pulse Rate 102 H 96 H Respiratory Rate 31 H 17 Blood Pressure 142/83 H Pulse Oximetry 94 97 Oxygen Delivery Method 02/21/23 08:48 02/21/23 10:43 02/21/23 10:00 Temperature Pulse Rate 105 H 85 Respiratory Rate 18 Blood Pressure 142/83 H 145/83 H 145/83 H Pulse Oximetry 93 Oxygen Delivery Method 02/21/23 10:00 02/21/23 11:52 02/21/23 12:00 Temperature Pulse Rate 89 Respiratory Rate 17 Blood Pressure 153/84 H Pulse Oximetry 96 Oxygen Delivery Method Heated High Flow 02/21/23 12:00 02/21/23 12:21 02/21/23 12:21 Temperature Pulse Rate 90 93 H Respiratory Rate 25 H 25 H Blood Pressure 149/83 H Pulse Oximetry 94 94 Oxygen Delivery Method 02/21/23 14:00 02/21/23 14:05 02/21/23 14:05 Temperature Pulse Rate 87 102 H Respiratory Rate 12 36 H Blood Pressure 176/85 H Pulse Oximetry 94 97 Oxygen Delivery Method Fraction of Inspired Oxygen 45 Oxygen Delivery Method Heated High Flow Oxygen Flow Rate 50 Narrative Exam Narrative: General:? Patient is well developed and well nourished, in no distress at this time on heated high flow via nasal cannula HEENT:? Normocephalic, atraumatic, extraocular muscles intact, oral pharynx is clear and mucous membranes are moist. Neck: supple and symmetric, trachea is midline, no cervical adenopathy. Negative for JVD Chest:? Normal AP diameter and contour without kyphoscoliosis, no tachypnea, equal chest rise bilaterally. Lungs:?diminished bilaterally but CTA B/l Cardio:?RRR no m/r/g. Abdomen: S NT ND. Musculoskeletal:? Muscle strength and tone are equal within normal limits, no deformity. Extremities: trace bilateral non pitting edema. No joint effusions. No cyanosis or clubbing. Skin:? Pale,? Warm to touch,dry and intact without rashes, ulcerations or p etechiae.? Neuro:? Alert and orientated to name only,? sensation to touch intact in all extremities, no gross deficits noted of cranial nerves. Psych:? Patient has a well-kept appearance, appropriate affect, mental status attitude thought context and judgment are appropriate for age. Objective Labs 02/21/23 04:30 02/21/23 04:30 Labs: Laboratory Results - last 24 hr 02/20/23 02/20/23 02/20/23 12:21 14:10 15:11 WBC RBC Hgb Hct MCV MCH MCHC RDW Plt Count Neut % (Auto) Lymph % (Auto) [place] % (Auto) Eos % (Auto) Baso % (Auto) Neut # (Auto) Lymph # (Auto) [place] # (Auto) Eos # (Auto) Baso # (Auto) Sodium 138 Potassium 4.8 Chloride 107 Carbon Dioxide 17 L BUN 53 H Creatinine 3.78 H Estimated GFR 15 L BUN/Creatinine Ratio 14.0 Glucose 236 H Lactate Calcium 8.3 L Magnesium 2.4 H Total Bilirubin 0.9 AST 889 H ALT 524 H Alkaline Phosphatase 113 Total Creatine Kinase Total Protein 6.9 Albumin 3.6 Globulin 3.3 Albumin/Globulin Ratio 1.1 Urine Color Yellow Urine Appearance Sl cloudy Urine pH 5.0 Ur Specific [place] 1.025 Urine Protein 3+ H Urine Glucose (UA) Trace H Urine Ketones Trace H Urine Occult Blood 3+ H Urine Nitrate Negative Urine Bilirubin Negative Urine Urobilinogen 1.0 Ur Leukocyte Esterase Negative Urine RBC 10-30/hpf H Urine WBC None seen Ur Squamous Epith Cells 0-1 /hpf Amorphous Sediment 2+ Urine Bacteria None seen Ur Culture Indicated? Cult not indicated Nasal Screen MRSA (PCR) Not detected 02/20/23 02/20/23 02/21/23 16:11 20:15 04:30 WBC 15.3 H RBC 4.65 Hgb 13.0 L Hct 38.8 L MCV 83.3 MCH 28.0 MCHC 33.6 RDW 14.8 Plt Count 133 L Neut % (Auto) 92.0 H Lymph % (Auto) 3.3 L [place] % (Auto) 4.4 Eos % (Auto) 0.0 L Baso % (Auto) 0.3 Neut # (Auto) 62532 H Lymph # (Auto) 500 L [place] # (Auto) 700 Eos # (Auto) 0 Baso # (Auto) 0 Sodium Potassium Chloride Carbon Dioxide BUN Creatinine Estimated GFR BUN/Creatinine Ratio Glucose Lactate 2.5 H 1.9 Calcium Magnesium Total Bilirubin AST ALT Alkaline Phosphatase Total Creatine Kinase Total Protein Albumin Globulin Albumin/Globulin Ratio Urine Color Urine Appearance Urine pH Ur Specific [place] Urine Protein Urine Glucose (UA) Urine Ketones Urine Occult Blood Urine Nitrate Urine Bilirubin Urine Urobilinogen Ur Leukocyte Esterase Urine RBC Urine WBC Ur Squamous Epith Cells Amorphous Sediment Urine Bacteria Ur Culture Indicated? Nasal Screen MRSA (PCR) 02/21/23 02/21/23 04:30 04:30 WBC RBC Hgb Hct MCV MCH MCHC RDW Plt Count Neut % (Auto) Lymph % (Auto) [place] % (Auto) Eos % (Auto) Baso % (Auto) Neut # (Auto) Lymph # (Auto) [place] # (Auto) Eos # (Auto) Baso # (Auto) Sodium 134 L Potassium 4.6 Chloride 104 Carbon Dioxide 20 L BUN 71 H Creatinine 4.27 H Estimated GFR 13 L BUN/Creatinine Ratio 16.6 Glucose 286 H Lactate Calcium 7.8 L Magnesium 2.5 H Total Bilirubin 0.6 AST 694 H ALT 631 H Alkaline Phosphatase 89 Total Creatine Kinase 68373 H Total Protein 6.1 L Albumin 3.1 L Globulin 3.0 Albumin/Globulin Ratio 1.0 Urine Color Urine Appearance Urine pH Ur Specific [place] Urine Protein Urine Glucose (UA) Urine Ketones Urine Occult Blood Urine Nitrate Urine Bilirubin Urine Urobilinogen Ur Leukocyte Esterase Urine RBC Urine WBC Ur Squamous Epith Cells Amorphous Sediment Urine Bacteria Ur Culture Indicated? 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 Sepsis secondary to COVID with acute respiratory failure with hypoxia, acute on chronic renal failure, lactic acidosis - abdominal ultrasound without evidence of cholecystitis, but did have stones. - continue empiric antibiotics with ceftriaxone and azithromycin given presentation, follow up UA (not collected yet) and blood cultures. Possible superimposed bacterial pneumonia seems most likely though CXR is negative (consider repeat CXR after fluids given). Procalcitonin is elevated at 4.6. UA reordered today as not collected from yesterday. - continue IV fluids, appears dry with rhabdomyolysis as well. - continue to wean from O2 as tolerated. - Continue remdesevir and dexamethasone 6 mg IV Daily for severe COVID. - lactate improving with fluid - performed POCUS at beside, EF was grossly normal. Given COVID, echo will not change current management so will not order at this time. Should his respiratory status change will consider ordering. 2. Rhabdomyolysis, atraumatic. - continue IV fluids today. CK improving but still [id number]. Creatinine worsended a bit today given fluids held overnight for possible worsening respiratory status. Now resumed fluids. Continue to trend CK. - monitor UOP closely with owens. - repeat BMP now and follow closely. Daughter not interested in dialysis if needed. 3. Transaminase levels elevated. - likely related to sepsis and hypoperfusion, along with rhabdomyolysis. Abdominal ultrasound without acute pathology or ductal dilatation. - continue to follow. 4. Probable NSTEMI - patient with previous NSTEMI and medical management recommended. - possible this represents demand, but patient is on anticoagulation and management will not change. - continue home anticoagulation with xarelto 5. Alzheimer's dementia - ecnourage daytime awakening, night rest. High risk for ICU delirium. 6. chronic atrial fibrillation on anticoagulation. - continue home metoprolol and xarelto. 7. HTN, chronic - hold home amlodipine, diuretic (chlorthalidone) in setting of sepsis. 8. CAD with Hx CABG. - asa statin therpay to continue along with xarelto. 9. CKD stage IV (with JOHNNY) - continue to monitor renal function closely and renally dose medications as appropriate. 10. Advanced care planning. - DNR / DNI per previous discussions. Code: DNR/DNI, surrogate decision maker is patient's daughter. DVT: on AC Dispo: now stable for regular floor and transfer out of ICU given he is on nasal cannula. If continuing to improve start PT / OT evaluations tomorrow. I have utilized all available immediate resources to obtain, update, or review the patient's current medications. I spent 33 minutes providing critical care management this patient. This excludes time spent in performing separately billed procedures. COVID-19 COVID-19 status: Positive Quality VTE Deep Vein Thrombosis/Pulmonary Embolism Present on Admission: No
[2023-02-21] MEDS: cefTRIAXone 1,000 MG in SODIUM CHLORIDE 0.9% 100 ML 200 MG IV (15:31)
[2023-02-21] MEDS: AZITHROMYCIN 500 MG in DEXTROSE 5% IN WATER 250 ML 250 MG IV (15:32)
[2023-02-21] MEDS: RIVAROXABAN 10 MG TABLET 15 MG PO (18:52)
[2023-02-21] MEDS: QUETIAPINE 25 MG TABLET PO (20:29)
[2023-02-22] VITALS (15 sets, daily range): BP systolic 116–182; BP diastolic 75–85; PULSE 81–107; RESP 15–24; TEMP 36.1–36.5; O2SAT 93–99
[2023-02-22] MEDS: SODIUM CHLORIDE 0.9% 1,000 ML 150 ML IV ×3 (00:23→21:27)
--- NOTE | 2023-02-22 01:51 | PC.NURSE ---
Patient in bed this shift, but with trouble sleeping. Pleasantly confused but calm. Has been on room air this shift with o2 sats mid to high 90s.
[2023-02-22 05:50] LABS: Add Manual Diff / Slide Review NO; Basophils Absolute Auto 0 /uL (0-100); Eosinophils Absolute Auto 0 /uL (0-450); Hematocrit 38.3 % (41-53); Lymphocytes Absolute Auto 300 /uL (1100-4500); Lymphocytes Percent Auto 2.2 % (25-40); Mean Corpuscular HGB Conc 33.9 % (30-36); Mean Corpuscular Volume 82.6 fL (80-100); Monocytes Absolute Auto 900 /uL (0-900); Monocytes Percent Auto 5.8 % (3-14); Neutrophils Absolute Auto 13600 /uL (1500-7000); Platelet Count 124 X10^3/uL (150-400); Red Blood Cell Count 4.64 X10^6/uL (4.5-5.9); Red Cell Distribution Width 14.6 % (11.6-14.8); White Blood Cell Count 14.8 X10^3/uL (4.5-11.0)
[2023-02-22 06:00] LABS: Alanine Aminotransferase 570 IU/L (<50); Albumin 3.1 g/dL (3.5-5.0); Albumin Globulin Ratio 1.1 (1.0-2.8); Alkaline Phosphatase 92 U/L (38-126); Aspartate Aminotransferase 466 IU/L (17-59); BUN Creatinine Ratio 21.3 (6-22); Bilirubin Total 0.6 mg/dL (0.2-1.3); Blood Urea Nitrogen 88 mg/dL (9-20); Calcium 7.6 mg/dL (8.4-10.2); Carbon Dioxide 16 mmol/L (22-32); Chloride 107 mmol/L (98-107); Estimated Glomerular Filt Rate 13 mL/min (>60); Globulin 2.9 g/dL (1.7-4.1); Glucose 252 mg/dL (80-110); HEMOLYSIS < 15 (0-50); Magnesium 2.3 mg/dL (1.6-2.3); Potassium 4.5 mmol/L (3.4-5.1); Sodium 136 mmol/L (137-145)
[2023-02-22] MEDS: METOPROLOL ER 50 MG TABLET PO (09:31)
[2023-02-22] MEDS: DEXAMETHASONE 10 MG/ML VIAL 6 MG IV (09:32)
--- NOTE | 2023-02-22 13:38 | PM.PN.1 ---
Subjective Subjective Interval history: 87 M admitted with a number of issues, including NSTEMI, COVID with respiratory failure, rhabdomyolysis with JOHNNY. Creatinine improved slightly today, continues to have good UOP via owens catheter. Continues on fluids. Will repeat CK tomorrow. He denies complaints today, though is confused and pulling at lines intermittently. Exam Vital Signs (past 8 hours): - 02/22/23 07:00 02/22/23 06:00 02/22/23 08:00 Pulse Rate 87 86 Respiratory Rate 16 19 Blood Pressure Pulse Oximetry 99 Oxygen Delivery Method Room Air 02/22/23 09:31 02/22/23 08:42 02/22/23 08:42 Pulse Rate 98 H 84 Respiratory Rate 20 Blood Pressure 140/78 140/78 Pulse Oximetry Oxygen Delivery Method Fraction of Inspired Oxygen 45 Oxygen Delivery Method Room Air Oxygen Flow Rate 0 Narrative Exam Narrative: General:? Patient is well developed and well nourished, in no distress at this time on heated high flow via nasal cannula HEENT:? Normocephalic, atraumatic, extraocular muscles intact, oral pharynx is clear and mucous membranes are moist. Neck: supple and symmetric, trachea is midline, no cervical adenopathy. Negative for JVD Chest:? Normal AP diameter and contour without kyphoscoliosis, no tachypnea, equal chest rise bilaterally. Lungs:?diminished bilaterally but CTA B/l Cardio:?RRR no m/r/g. Abdomen: S NT ND. Musculoskeletal:? Muscle strength and tone are equal within normal limits, no deformity. Extremities: trace bilateral non pitting edema. No joint effusions. No cyanosis or clubbing. Skin:? Pale,? Warm to touch,dry and intact without rashes, ulcerations or petechiae.? Neuro:? Alert and orientated to name only,? sensation to touch intact in all extremities, no gross deficits noted of cranial nerves. Psych:? Patient has a well-kept appearance, appropriate affect, mental status attitude thought context and judgment are appropriate for age. Objective Labs 02/22/23 05:00 02/22/23 05:00 Labs: Laboratory Results - last 24 hr 02/22/23 02/22/23 05:00 05:00 WBC 14.8 H RBC 4.64 Hgb 13.0 L Hct 38.3 L MCV 82.6 MCH 28.0 MCHC 33.9 RDW 14.6 Plt Count 124 L Neut % (Auto) 92.0 H Lymph % (Auto) 2.2 L [place] % (Auto) 5.8 Eos % (Auto) 0.0 L Baso % (Auto) 0.0 Neut # (Auto) 90737 H Lymph # (Auto) 300 L [place] # (Auto) 900 Eos # (Auto) 0 Baso # (Auto) 0 Sodium 136 L Potassium 4.5 Chloride 107 Carbon Dioxide 16 L BUN 88 H Creatinine 4.14 H Estimated GFR 13 L BUN/Creatinine Ratio 21.3 Glucose 252 H Calcium 7.6 L Magnesium 2.3 Total Bilirubin 0.6 AST 466 H ALT 570 H Alkaline Phosphatase 92 Total Protein 6.0 L Albumin 3.1 L Globulin 2.9 Albumin/Globulin Ratio 1.1 PFSH Medical History Advanced dementia Angina pectoris, unspecified CAD (coronary artery disease) of artery bypass graft Chronic kidney disease (CKD) stage G4/A1, severely decreased glomerular filtration rate (GFR) between 15-29 mL/min/1.73 square meter and albuminuria creatinine ratio less than 30 mg/g 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 Sepsis secondary to COVID with acute respiratory failure with hypoxia, acute on chronic renal failure, lactic acidosis - abdominal ultrasound without evidence of cholecystitis, but did have stones. - continue empiric antibiotics with ceftriaxone and azithromycin given presentation, follow up cultures though suspect won't grow anything at this time. UA with RBC but no WBC. Possible superimposed bacterial pneumonia seems most likely though CXR is negative (consider repeat CXR after fluids given). Procalcitonin was elevated at 4.6. - continue IV fluids for rhabdo. - continue to wean from O2 as tolerated. - Okay to stop remdesevir and dexamethasone 6 mg IV Daily given resolution of hypoxia. - lactate improved with fluid - performed POCUS at beside, EF was grossly normal. Given COVID and on chronic anticoagulation with previous recommendations for medical management, echo will not change current management so will not order at this time. Should his respiratory status change will consider ordering. 2. Rhabdomyolysis, atraumatic. - continue IV fluids today. CK improving yesterday but still [id number]. Creatinine worsended a bit given fluids held overnight for possible worsening respiratory status initially but now that he is improved have resumed fluids with improving creatinine. Continue to trend CK tomorrow morning. - monitor UOP closely with graciela. - repeat BMP now and follow closely. Daughter not interested in dialysis if needed. 3. Transaminase levels elevated. - likely related to sepsis and hypoperfusion, along with rhabdomyolysis. Abdominal ultrasound without acute pathology or ductal dilatation. - continue to follow. 4. Probable NSTEMI - patient with previous NSTEMI and medical management recommended. - possible this represents demand, but patient is on anticoagulation and management will not change. - continue home anticoagulation with xarelto - no TTE ordered as discussed above. 5. Alzheimer's dementia - encourage daytime awakening, night rest. High risk for ICU delirium. - started seroquel 25 mg at bedtime. 6. chronic atrial fibrillation on anticoagulation. - continue home metoprolol and xarelto. 7. HTN, chronic - hold home amlodipine, diuretic (chlorthalidone) in setting of sepsis. 8. CAD with Hx CABG. - asa statin therpay to continue along with xarelto. 9. CKD stage IV (with JOHNNY) - continue to monitor renal function closely and renally dose medications as appropriate. 10. Advanced care planning. - DNR / DNI per previous discussions. Code: DNR/DNI, surrogate decision maker is patient's daughter. DVT: on AC Dispo: Regular floor, okay to start PT/OT. Possible discharge home vs SNF in a number of days depending on renal function and therapy evaluations. I have utilized all available immediate resources to obtain, update, or review the patient's current medications. Additional history was obtained via discussion with bedside staff. Discussed care plan with care management staff COVID-19 COVID-19 status: Positive Quality VTE Deep Vein Thrombosis/Pulmonary Embolism Present on Admission: No
[2023-02-22] MEDS: AZITHROMYCIN 500 MG in DEXTROSE 5% IN WATER 250 ML 250 MG IV (15:35)
[2023-02-22] MEDS: cefTRIAXone 1,000 MG in SODIUM CHLORIDE 0.9% 100 ML 200 MG IV (15:35)
[2023-02-22] MEDS: RIVAROXABAN 10 MG TABLET 15 MG PO (16:10)
[2023-02-22] MEDS: ACETAMINOPHEN 325 MG TABLET 650 MG PO (16:48)
[2023-02-22] MEDS: QUETIAPINE 25 MG TABLET PO (20:06)
[2023-02-22 20:47] LABS: Glucose 416 mg/dL (80-110)
[2023-02-22] MEDS: INSULIN LISPRO 100 UNIT/ML 3ML VIAL 6 UNIT SUBCUT (21:20)
[2023-02-22] MEDS: INSULIN LISPRO 100 UNIT/ML 3ML VIAL SUBCUT (21:21)
[2023-02-22] MEDS: INSULIN LISPRO 100 UNIT/ML 3ML VIAL 10 UNIT SUBCUT (22:52)
[2023-02-23] VITALS (29 sets, daily range): BP systolic 105–162; BP diastolic 67–94; PULSE 87–183; RESP 14–27; TEMP 36.2–37.1; O2SAT 87–99
[2023-02-23] MEDS: INSULIN LISPRO 100 UNIT/ML 3ML VIAL SUBCUT ×4 (01:09→21:00)
[2023-02-23 04:50] LABS: Add Manual Diff / Slide Review NO; Basophils Absolute Auto 0 /uL (0-100); Eosinophils Absolute Auto 0 /uL (0-450); Hematocrit 33.8 % (41-53); Hemoglobin 11.4 g/dL (13.5-17.5); Lymphocytes Absolute Auto 400 /uL (1100-4500); Lymphocytes Percent Auto 2.3 % (25-40); Mean Corpuscular HGB Conc 33.7 % (30-36); Mean Corpuscular Hemoglobin 27.9 PG (26-34); Mean Corpuscular Volume 82.7 fL (80-100); Monocytes Absolute Auto 1400 /uL (0-900); Neutrophils Absolute Auto 14000 /uL (1500-7000); Neutrophils Percent Auto 88.7 % (50-75); Platelet Count 123 X10^3/uL (150-400); Red Blood Cell Count 4.08 X10^6/uL (4.5-5.9); Red Cell Distribution Width 14.5 % (11.6-14.8); White Blood Cell Count 15.8 X10^3/uL (4.5-11.0)
[2023-02-23 04:57] LABS: Alanine Aminotransferase 431 IU/L (<50); Albumin 2.7 g/dL (3.5-5.0); Albumin Globulin Ratio 0.9 (1.0-2.8); Alkaline Phosphatase 74 U/L (38-126); Aspartate Aminotransferase 248 IU/L (17-59); BUN Creatinine Ratio 21.6 (6-22); Bilirubin Total 0.4 mg/dL (0.2-1.3); Blood Urea Nitrogen 85 mg/dL (9-20); Calcium 7.4 mg/dL (8.4-10.2); Carbon Dioxide 17 mmol/L (22-32); Chloride 110 mmol/L (98-107); Estimated Glomerular Filt Rate 14 mL/min (>60); Glucose 96 mg/dL (80-110); HEMOLYSIS < 15 (0-50); Magnesium 2.1 mg/dL (1.6-2.3); Potassium 4.3 mmol/L (3.4-5.1); Sodium 138 mmol/L (137-145); Total Protein 5.7 g/dL (6.3-8.2)
[2023-02-23 05:15] LABS: Creatine Kinase 7446 U/L (55-170)
[2023-02-23 05:30] LABS: Hemoglobin A1C% w Est Avg Glu 7.9 % (4.0-6.0)
--- NOTE | 2023-02-23 06:29 | PC.NURSE ---
patient impulsive and tugging at owens. patient also disclosed pain in abdomen. Owens advanced and 1000ml of urine drained, small amount of blood noted but no trauma, owens draining for rest of shift. BG also noted to be in 400s, MD notified and multiple doses of Subq insulin given and BG recheck hourly until normal (see chart).
[2023-02-23] MEDS: METOPROLOL ER 50 MG TABLET PO (10:31)
--- NOTE | 2023-02-23 12:30 | PC.NURSE ---
Addendum entered by Coretta Cody R.N. 02/23/23 17:27: (Note closed without permission). Note continued, Pt stated, I don't know, 6, 7, 8, out of that 10. It's fluttery and bothering me. BP obtained 162/89, pulse obtained (150's-180's), telemetry attached, provider notified, 12-lead ECG ordered and obtained. Pt in Afib w/ RVR, provider at bedside. Addendum entered by Coretta Cody R.N. 02/23/23 17:26: 1710 BG 245, pt c/o chest pain. When asked to rate pain, pt states, I don't know, Addendum entered by Coretta Cody R.N. 02/23/23 16:36: Provider notified of midline removal at 12:25. Pt up to BR with SBA & FWW. Pt continues to be impulsive, getting out of chair without assist, PCT observing pt from nurse's station, pt room closest to nurse's station for close observation. Chair alarm active and working. Repeated reorientation provided, pt confused but at baseline cognition per family. VSS. Care ongoing. Original Note: Day shift: Pt alert to name, year but not date. Pt sitting up in chair for breakfast. BG 110, insulin held. Chair alarm attached. PCT notified this RN of pt self-ambulating to BR with chair alarm activation. Pt self removed L PICC line and tugged on owens catheter. Minimal bleeding at site after tugging. Pt denies pt any pain at this time. BG 197 at lunch, medication given as charted. Pt in chair with chair alarm attached, curtain open for better observation, door cracked. Care ongoing, will continue to monitor.
--- NOTE | 2023-02-23 14:41 | CM.DPNOTE ---
DCP Note Lengthy conversation today with daughter Stacy who expressed feeling overwhelmed with her own life circumstance and the needs of her two demented, aging parents. Patient has advanced dementia and does not recognize his children any longer. Explained that patient is not a SNF candidate r/t his advanced dementia, daughter states understanding. Stacy explains patient and spouse are currently over resourced to be approved for Medicaid. Explained this these funds could be spent on patient/ spouse's care needs. Reviewed a few ferry terminal agent care scenarios- home w/increased assistance, likely 25/12, w/ HH vs Hospice vs memory care unit. Stacy explains she and her brother have tried to keep her parents home to honor their wishes to live and in their own home. Explained this is no longer a realistic option and that her parents care needs now outweigh what is available at home. Stacy agrees. Stacy is planning on taking patient home tomorrow. Discussed HH vs Hospice. Stacy has spoken with [facility] staff to gather information and thinks this will be the best pathway for her parents. Stacy declines a referral to [facility] at this time, requests that [facility] have the referral until she can speak with her brother further. Provided Stacy the number for [facility]. Stacy already has the [facility] Senior Resource Guide. SOCIAL WORK ADMINISTRATOR and Dr Hernandez updated. Plan: Discharge home w/family expected tomorrow 02.24.23, [facility] will need new HH order, will plan to complete [facility] and fax JW
--- NOTE | 2023-02-23 14:41 | OT.IPNOTE ---
Spoke to case management and pt to be going home with assist and home health, therefore no OT needs at this time. Able to talk to the hospitalist and agreed to discharge OT eval orders.
--- NOTE | 2023-02-23 15:17 | PT-IP ANOTE ---
Addendum entered and electronically signed by Magaly Taylor PT 02/23/23 15:22: pt also will receive home health services upon d/c home. Original Note: PT eval order received. EMR reviewed. OT informed PT that hospitalist stated, ok to d/c PT eval. plan is for pt to go home and eventually hospice care. checked with nurse and stated that pt was able to use the toilet SBA with FWW but was unsteady but pt has advanced dementia. pt's currenty needs is more due to decrease safety awareness and not really a decline in mobility function. pt plans to go home with son to assist. Pt will need 24/7 assist due to advanced dementia affecting safety awareness and in turn affecting mobility independence. will d/c PT eval order.
[2023-02-23] MEDS: METOPROLOL IR 50 MG TABLET PO (17:44)
[2023-02-23] MEDS: METOPROLOL TARTRATE 5 MG/5 ML INJ IV ×2 (18:32→18:49)
[2023-02-23 18:43] LABS: Hematocrit 38.2 % (41-53); Hemoglobin 12.6 g/dL (13.5-17.5); Mean Corpuscular Hemoglobin 27.2 PG (26-34); Mean Corpuscular Volume 82.6 fL (80-100); Platelet Count 188 X10^3/uL (150-400); Red Blood Cell Count 4.63 X10^6/uL (4.5-5.9); Red Cell Distribution Width 15.3 % (11.6-14.8)
[2023-02-23] MEDS: RIVAROXABAN 10 MG TABLET 15 MG PO (18:47)
[2023-02-23 18:50] LABS: BUN Creatinine Ratio 22.7 (6-22); Blood Urea Nitrogen 86 mg/dL (9-20); Calcium 7.8 mg/dL (8.4-10.2); Carbon Dioxide 16 mmol/L (22-32); Chloride 108 mmol/L (98-107); Estimated Glomerular Filt Rate 15 mL/min (>60); Glucose 258 mg/dL (80-110); HEMOLYSIS < 15 (0-50); Magnesium 2.1 mg/dL (1.6-2.3); Potassium 4.3 mmol/L (3.4-5.1); Sodium 138 mmol/L (137-145)
--- NOTE | 2023-02-23 18:59 | PM.PN.1 ---
Subjective Subjective Date Patient Seen: 02/23/23 Time Patient Seen: 08:00 Interval history: This morning he was feeling well. He had no chest pain. No shortness of breath. Late this afternoon he went into atrial fibrillation with RVR. He was given multiple doses of metoprolol with mild improvement in heart rate. He was planned to transfer to ICU to start on dilt and possible gtt. He was having chest pain and discomfort. Exam Vital Signs (past 8 hours): - 02/23/23 12:36 02/23/23 17:00 Temperature 97.4 F L Pulse Rate 87 183 H Respiratory Rate 22 Blood Pressure 140/89 Pulse Oximetry 95 Oxygen Flow Rate 0 Fraction of Inspired Oxygen 45 Oxygen Delivery Method Room Air Oxygen Flow Rate 0 Narrative Exam Narrative: General:?no acute distress Lungs:?diminished bilaterally but CTA B/l Cardio:?tachycardic. Abdomen: soft, nontender Extremities: warm and well perfused with no edema Objective Labs 02/23/23 Unknown 02/23/23 Unknown Labs: Laboratory Results - last 24 hr 02/22/23 02/23/23 02/23/23 20:30 04:00 04:00 WBC 15.8 H RBC 4.08 L Hgb 11.4 L Hct 33.8 L MCV 82.7 MCH 27.9 MCHC 33.7 RDW 14.5 Plt Count 123 L Neut % (Auto) 88.7 H Lymph % (Auto) 2.3 L [place] % (Auto) 9.0 Eos % (Auto) 0.0 L Baso % (Auto) 0.0 Neut # (Auto) 13766 H Lymph # (Auto) 400 L [place] # (Auto) 1400 H Eos # (Auto) 0 Baso # (Auto) 0 Sodium 138 Potassium 4.3 Chloride 110 H Carbon Dioxide 17 L BUN 85 H Creatinine 3.93 H Estimated GFR 14 L BUN/Creatinine Ratio 21.6 Glucose 416 H D 96 D Hemoglobin A1c Calcium 7.4 L Magnesium 2.1 Total Bilirubin 0.4 AST 248 H ALT 431 H Alkaline Phosphatase 74 Total Creatine Kinase Total Protein 5.7 L Albumin 2.7 L Globulin 3.0 Albumin/Globulin Ratio 0.9 L 02/23/23 02/23/23 02/23/23 04:00 04:00 Unknown WBC 25.0 H D RBC 4.63 Hgb 12.6 L Hct 38.2 L MCV 82.6 MCH 27.2 MCHC 33.0 RDW 15.3 H Plt Count 188 Neut % (Auto) Lymph % (Auto) [place] % (Auto) Eos % (Auto) Baso % (Auto) Neut # (Auto) Lymph # (Auto) [place] # (Auto) Eos # (Auto) Baso # (Auto) Sodium Potassium Chloride Carbon Dioxide BUN Creatinine Estimated GFR BUN/Creatinine Ratio Glucose Hemoglobin A1c 7.9 H Calcium Magnesium Total Bilirubin AST ALT Alkaline Phosphatase Total Creatine Kinase 7446 H D Total Protein Albumin Globulin Albumin/Globulin Ratio 02/23/23 Unknown WBC RBC Hgb Hct MCV MCH MCHC RDW Plt Count Neut % (Auto) Lymph % (Auto) [place] % (Auto) Eos % (Auto) Baso % (Auto) Neut # (Auto) Lymph # (Auto) [place] # (Auto) Eos # (Auto) Baso # (Auto) Sodium 138 Potassium 4.3 Chloride 108 H Carbon Dioxide 16 L BUN 86 H Creatinine 3.79 H Estimated GFR 15 L BUN/Creatinine Ratio 22.7 H Glucose 258 H D Hemoglobin A1c Calcium 7.8 L Magnesium 2.1 Total Bilirubin AST ALT Alkaline Phosphatase Total Creatine Kinase Total Protein Albumin Globulin Albumin/Globulin Ratio [facility] Medical History Advanced dementia Angina pectoris, unspecified CAD (coronary artery disease) of artery bypass graft Chronic kidney disease (CKD) stage G4/A1, severely decreased glomerular filtration rate (GFR) between 15-29 mL/min/1.73 square meter and albuminuria creatinine ratio less than 30 mg/g 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 Atrial fibrillation with RVR -has been continued on metoprolol -likely went into RVR secondary to COVID and NSTEMI -heart rate was in 160s, now significantly improved with metoprolol IV -try dilt and likely dilt gtt -check troponin 2. Rhabdomyolysis, acute with JOHNNY on CKD stage 4 - continue IV fluids today. CK improving to around 7k, continue to trend daily. - monitor UOP closely with owens. 3. Transaminase levels elevate -continue to trend daily ?-abdominal ultrasound without acute pathology or ductal dilatation. ?- continue to follow. 4. Probable NSTEMI ?- patient with previous NSTEMI and medical management recommended. ?- possible this represents demand, but patient is on anticoagulation and management will not change. ?- continue home anticoagulation with xarelto ?- no TTE ordered as discussed above. 5. Alzheimer's dementia ?- encourage daytime awakening, night rest. High risk for ICU delirium. ?- started seroquel 25 mg at bedtime. 6. HTN, chronic ?- hold home amlodipine, diuretic (chlorthalidone) in setting of sepsis. 7. CAD with Hx CABG. ?- asa statin therpay to continue along with xarelto. 8. Advanced care planning. ?- DNR / DNI per previous discussions - per admission note no escalation of care Quality VTE Deep Vein Thrombosis/Pulmonary Embolism Present on Admission: No
[2023-02-23 19:02] LABS: NT-proBNP (BNP-Adult 18+) 13500 pg/mL (<450)
[2023-02-23] MEDS: AMIODARONE 150 MG/100 ML PIGGYBACK 600 MG IV (20:08)
[2023-02-23] MEDS: dilTIAZem 5 MG/ML SDV 10 MG IV (20:09)
[2023-02-23] MEDS: DILTIAZEM 125 MG/125 ML PIGGYBACK IV (20:10)
[2023-02-23] MEDS: ACETAMINOPHEN 325 MG TABLET 650 MG PO (20:10)
[2023-02-23] MEDS: QUETIAPINE 25 MG TABLET PO (20:10)
--- NOTE | 2023-02-23 20:35 | PM.CN.EICU ---
History of Present Illness Consult details IF CAMERA ACTIVATED, patient seen via real-time interactive audiovisual communication: Camera activated Chief complaint: GLF, unkn downtime Consent obtained for tele-medical staff credentialing coordinator care: Yes Patient Location: ICU Provider location (State): Other participants/roles: RN Narrative: 87 M with medical H/o of advanced dementia, CKD stage IV, CAD s/p CABG, AFIB on Xarelto, HTN,?DM II, admitted for COVID PNA & hypoxic resp failure, NSTEMI, rhabdomyolysis with JOHNNY. Pt was improving and team started working on the discharging plan, but this evening started having afib w RVR for which he got transferred to ICU A/P ?Atrial fibrillation with RVR Sepsis/ covid PNA/ acute hypoxic resp failure JOHNNY on CKD stage IV 2/2 rhabdo Transaminases NSTEMI ?, likely type II [place] Plan: continue Cardizem drip, HR improving after received a dose of Iv amiodarone bolus , if BP start to become soft switch to amiona drip Increase metoprolol ER to 100 mg daily Continue mpiric antibiotics with ceftriaxone, received azithromycin Close watch I/o, CXR reviewed, DC IV fluid when CK below 5 K Trend CK & CMP daily ?Continue home anticoagulation with xarelto Continue seroquel 25 mg at bedtime. 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 Testicular swelling Surgical History Hx of cardiac catheterization Family History Father Heart disease Brother Heart disease Brother Heart disease Daughter Heart disease Other Hyperlipidemia Social History household members: significant other and family Smoking Status: Former smoker alcohol intake: current Current Medications Current Medications Medications: Home Medications nitroglycerin 6.5 mg capsule,extended release 6.5 mg PO BID ##0 10/07/12 [History Confirmed 02/20/23] amlodipine 10 mg tablet 10 mg PO DAILY 06/10/20 [History Confirmed 02/20/23] metoprolol succinate 50 mg tablet,extended release 24 hr (Toprol XL) 50 mg PO DAILY 06/10/20 [History Confirmed 02/20/23] rivaroxaban 15 mg tablet (Xarelto) 15 mg PO QPM 09/06/21 [History Confirmed 02/20/23] atorvastatin 40 mg tablet 40 mg PO BEDTIME #30 tabs 09/08/21 [Rx Confirmed 02/20/23] chlorthalidone 25 mg tablet 12.5 mg PO DAILY #30 tabs 03/21/22 [Rx Confirmed 02/20/23] Visit Medications (administered) Generic Name Dose Route Start Last Admin Trade Name Freq PRN Reason Stop Dose Admin Acetaminophen 650 mg 02/20/23 14:09 02/23/23 20:10 Acetaminophen 325 Mg Tablet PO 650 mg Q6H PRN Administration Fever/Mild Pain (1-3) Heparin Sodium (Porcine) 50 unit 02/20/23 21:00 02/23/23 10:31 Heparin Flush (Cl/Picc/Mid-Line) 50 Unit/5 Ml Syringe IV 50 unit BID OWEN Administration Ceftriaxone Sodium 1,000 mg/ 100 mls @ 200 mls/hr 02/20/23 15:00 02/23/23 16:41 Sodium Chloride IV Not Given Q24H OWEN DILTIAZEM 125 mg in 125 mls @ 5 mls/hr 02/23/23 19:00 02/23/23 20:10 Diltiazem 125 Mg/125 Ml-D5w IV 5 mg/hr TITRATE OWEN 5 mls/hr Administration Protocol 5 MG/HR Insulin Human Lispro 0 unit 02/22/23 11:45 02/23/23 18:55 Insulin Lispro 100 Unit/Ml 3ml Vial SUBCUT 2 unit ACHS OWEN Administration Protocol Quetiapine Fumarate 25 mg 02/20/23 21:00 02/23/23 20:10 Quetiapine 25 Mg Tablet PO 25 mg BEDTIME OWEN Administration Rivaroxaban 15 mg 02/20/23 17:00 02/23/23 18:47 Rivaroxaban 10 Mg Tablet PO 15 mg QPM OWEN Administration Exam Vital Signs (past 8 hours): - 02/23/23 12:36 02/23/23 17:00 02/23/23 20:09 Temperature 97.4 F L Pulse Rate 87 183 H 135 H Respiratory Rate 22 Blood Pressure 140/89 141/93 H Pulse Oximetry 95 Oxygen Flow Rate 0 Fraction of Inspired Oxygen 45 Oxygen Delivery Method Room Air Oxygen Flow Rate 0 Objective Labs 02/23/23 Unknown 02/23/23 Unknown Labs: Laboratory Results - last 24 hr 02/22/23 02/23/23 02/23/23 20:30 04:00 04:00 WBC 15.8 H RBC 4.08 L Hgb 11.4 L Hct 33.8 L MCV 82.7 MCH 27.9 MCHC 33.7 RDW 14.5 Plt Count 123 L Neut % (Auto) 88.7 H Lymph % (Auto) 2.3 L [place] % (Auto) 9.0 Eos % (Auto) 0.0 L Baso % (Auto) 0.0 Neut # (Auto) 25170 H Lymph # (Auto) 400 L [place] # (Auto) 1400 H Eos # (Auto) 0 Baso # (Auto) 0 Sodium 138 Potassium 4.3 Chloride 110 H Carbon Dioxide 17 L BUN 85 H Creatinine 3.93 H Estimated GFR 14 L BUN/Creatinine Ratio 21.6 Glucose 416 H D 96 D Hemoglobin A1c Calcium 7.4 L Magnesium 2.1 Total Bilirubin 0.4 AST 248 H ALT 431 H Alkaline Phosphatase 74 Total Creatine Kinase Troponin I NT-Pro-B Natriuret Pep Total Protein 5.7 L Albumin 2.7 L Globulin 3.0 Albumin/Globulin Ratio 0.9 L 02/23/23 02/23/23 02/23/23 04:00 04:00 Unknown WBC 25.0 H D RBC 4.63 Hgb 12.6 L Hct 38.2 L MCV 82.6 MCH 27.2 MCHC 33.0 RDW 15.3 H Plt Count 188 Neut % (Auto) Lymph % (Auto) [place] % (Auto) Eos % (Auto) Baso % (Auto) Neut # (Auto) Lymph # (Auto) [place] # (Auto) Eos # (Auto) Baso # (Auto) Sodium Potassium Chloride Carbon Dioxide BUN Creatinine Estimated GFR BUN/Creatinine Ratio Glucose Hemoglobin A1c 7.9 H Calcium Magnesium Total Bilirubin AST ALT Alkaline Phosphatase Total Creatine Kinase 7446 H D Troponin I NT-Pro-B Natriuret Pep Total Protein Albumin Globulin Albumin/Globulin Ratio 02/23/23 Unknown WBC RBC Hgb Hct MCV MCH MCHC RDW Plt Count Neut % (Auto) Lymph % (Auto) [place] % (Auto) Eos % (Auto) Baso % (Auto) Neut # (Auto) Lymph # (Auto) [place] # (Auto) Eos # (Auto) Baso # (Auto) Sodium 138 Potassium 4.3 Chloride 108 H Carbon Dioxide 16 L BUN 86 H Creatinine 3.79 H Estimated GFR 15 L BUN/Creatinine Ratio 22.7 H Glucose 258 H D Hemoglobin A1c Calcium 7.8 L Magnesium 2.1 Total Bilirubin AST ALT Alkaline Phosphatase Total Creatine Kinase Troponin I 3.410 H* NT-Pro-B Natriuret Pep 50019 H Total Protein Albumin Globulin Albumin/Globulin Ratio
[2023-02-24] VITALS (27 sets, daily range): BP systolic 90–131; BP diastolic 59–95; PULSE 66–143; RESP 11–38; TEMP 36.1–36.7; O2SAT 96–99
--- NOTE | 2023-02-24 00:36 | PM.EVENT ---
Event Note Event Note (Rapid Response, Code, or fall): Notified by RN patient's BP is soft while on diltiazem gtt. Will switch to amidoarone gtt. D/w bedside RN.
[2023-02-24] MEDS: AMIODARONE 360 MG/200 ML PIGGYBACK 33.333 MG IV (01:09)
[2023-02-24 05:15] LABS: Hematocrit 34.3 % (41-53); Hemoglobin 11.6 g/dL (13.5-17.5); Mean Corpuscular HGB Conc 33.9 % (30-36); Mean Corpuscular Hemoglobin 27.6 PG (26-34); Mean Corpuscular Volume 81.4 fL (80-100); Platelet Count 139 X10^3/uL (150-400); Red Blood Cell Count 4.21 X10^6/uL (4.5-5.9); Red Cell Distribution Width 15.1 % (11.6-14.8); White Blood Cell Count 15.6 X10^3/uL (4.5-11.0)
[2023-02-24 05:27] LABS: Alanine Aminotransferase 336 IU/L (<50); Albumin 2.9 g/dL (3.5-5.0); Alkaline Phosphatase 88 U/L (38-126); Aspartate Aminotransferase 163 IU/L (17-59); BUN Creatinine Ratio 25.1 (6-22); Bilirubin Total 0.5 mg/dL (0.2-1.3); Blood Urea Nitrogen 95 mg/dL (9-20); Calcium 7.8 mg/dL (8.4-10.2); Carbon Dioxide 17 mmol/L (22-32); Chloride 112 mmol/L (98-107); Estimated Glomerular Filt Rate 15 mL/min (>60); Globulin 2.8 g/dL (1.7-4.1); Glucose 104 mg/dL (80-110); HEMOLYSIS < 15 (0-50); Potassium 4.1 mmol/L (3.4-5.1); Sodium 139 mmol/L (137-145); Total Protein 5.7 g/dL (6.3-8.2)
[2023-02-24] MEDS: AMIODARONE 360 MG/200 ML PIGGYBACK 16.7 MG IV (05:38)
[2023-02-24 06:22] LABS: Appearance Urine UA CLEAR; Bilirubin Urine UA NEGATIVE (NEGATIVE); Color Urine UA YELLOW; Glucose Urine UA TRACE g/dL (Negative); Ketones Urine UA NEGATIVE (NEGATIVE); Leukocyte Esterase Urine UA 1+ (NEGATIVE); Nitrite Urine UA NEGATIVE (Negative); Occult Blood Urine UA 3+ (Negative); Protein Urine UA 2+ (Negative); Urobilinogen Urine UA 0.2 E.U./dL (0.2)
[2023-02-24 06:41] LABS: Bacteria Urine Few (2-10); RBC Urine 30-100/HPF (0-5/HPF); Squamous Epithelial Cell Urine 0-1 /HPF (0-5/HPF); WBC Urine 10-30/HPF (0-5/HPF)
[2023-02-24 06:42] LABS: Culture Indicated Urine Specimen Cultured; Uric Acid Crystals Urine Few
[2023-02-24 06:43] LABS: Granular Casts Urine 1-5/LPF; Hyaline Casts Urine 1-5/LPF; White Blood Cell Casts Urine 0-1/LPF
[2023-02-24] MEDS: METOPROLOL ER 50 MG TABLET 100 MG PO (08:11)
[2023-02-24] MEDS: FAMOTIDINE 20 MG/2 ML VIAL IV (09:00)
[2023-02-24] MEDS: AMIODARONE 200 MG TABLET PO (10:30)
--- NOTE | 2023-02-24 10:34 | PC.NURSE ---
Cruz catheter removed, patient tolerated well.
--- NOTE | 2023-02-24 10:39 | P.TELICUPN_ITS ---
Subjective Subjective IF CAMERA ACTIVATED, patient seen via real-time interactive audiovisual communication: Camera activated Consent obtained for tele-air conditioning specialist care: Yes Patient Location: ICU Provider location (State): [place] Other participants/roles: RN, RT, hospitalist Interval history: Patient Summary: 87 M with medical H/o of advanced dementia, CKD stage IV, CAD s/p CABG, AFIB on Xarelto, HTN,?DM II, admitted for COVID PNA & hypoxic resp failure, NSTEMI, rhabdomyolysis with JOHNNY. Pt was improving and team started working on the discharging plan, but then on 02/23/23?patient had to be transferred to ICU for management of afib w RVR (HR as high as 170s). 02/23: initially patient tried on Dilt drip but BP was soft so switched to Amio drip Recent events: Patient's high was in 120-130s in Afib even on Amio drip and metoprolol but now he is going back and forth between Afib with HR of 120-130 and sinus georgette in 60s Current Medications Current Medications Medications: Home Medications nitroglycerin 6.5 mg capsule,extended release 6.5 mg PO BID ##0 10/07/12 [History Confirmed 02/20/23] amlodipine 10 mg tablet 10 mg PO DAILY 06/10/20 [History Confirmed 02/20/23] metoprolol succinate 50 mg tablet,extended release 24 hr (Toprol XL) 50 mg PO DAILY 06/10/20 [History Confirmed 02/20/23] rivaroxaban 15 mg tablet (Xarelto) 15 mg PO QPM 09/06/21 [History Confirmed 02/20/23] atorvastatin 40 mg tablet 40 mg PO BEDTIME #30 tabs 09/08/21 [Rx Confirmed 02/20/23] chlorthalidone 25 mg tablet 12.5 mg PO DAILY #30 tabs 03/21/22 [Rx Confirmed 02/20/23] Visit Medications (administered) Generic Name Dose Route Start Last Admin Trade Name Freq PRN Reason Stop Dose Admin Acetaminophen 650 mg 02/20/23 14:09 02/23/23 20:10 Acetaminophen 325 Mg Tablet PO 650 mg Q6H PRN Administration Fever/Mild Pain (1-3) Heparin Sodium (Porcine) 50 unit 02/20/23 21:00 02/24/23 08:11 Heparin Flush (Cl/Picc/Mid-Line) 50 Unit/5 Ml Syringe IV Not Given BID [facility] Ceftriaxone Sodium 1,000 mg/ 100 mls @ 200 mls/hr 02/20/23 15:00 02/23/23 16:41 Sodium Chloride IV Not Given Q24H [facility] DILTIAZEM 125 mg in 125 mls @ 5 mls/hr 02/23/23 19:00 02/23/23 20:10 Diltiazem 125 Mg/125 Ml-D5w IV 5 mg/hr TITRATE OWEN 5 mls/hr Administration Protocol 5 MG/HR Amiodarone HCl/Dextrose 360 mg in 200 mls @ 16.7 mls/hr 02/24/23 07:00 02/24/23 05:38 Nexterone IV 02/24/23 18:59 16.7 ml/hr CONT OWEN 16.7 mls/hr Administration Protocol Insulin Human Lispro 0 unit 02/22/23 11:45 02/24/23 08:11 Insulin Lispro 100 Unit/Ml 3ml Vial SUBCUT Not Given ACHS [facility] Protocol Metoprolol Succinate 100 mg 02/24/23 09:00 02/24/23 08:11 Metoprolol Er 50 Mg Tablet PO 100 mg DAILY OWEN Administration Quetiapine Fumarate 25 mg 02/20/23 21:00 02/23/23 20:10 Quetiapine 25 Mg Tablet PO 25 mg BEDTIME OWEN Administration Rivaroxaban 15 mg 02/20/23 17:00 02/23/23 18:47 Rivaroxaban 10 Mg Tablet PO 15 mg QPM OWEN Administration Objective Ventilator Parameters: Ventilator Settings [id number] 55 Labs 02/24/23 04:30 02/24/23 04:30 Labs: Laboratory Results - last 24 hr 02/23/23 02/23/23 02/24/23 Unknown Unknown 04:30 WBC 25.0 H D 15.6 H RBC 4.63 4.21 L Hgb 12.6 L 11.6 L Hct 38.2 L 34.3 L MCV 82.6 81.4 MCH 27.2 27.6 MCHC 33.0 33.9 RDW 15.3 H 15.1 H Plt Count 188 139 L Sodium 138 Potassium 4.3 Chloride 108 H Carbon Dioxide 16 L BUN 86 H Creatinine 3.79 H Estimated GFR 15 L BUN/Creatinine Ratio 22.7 H Glucose 258 H D Calcium 7.8 L Magnesium 2.1 Total Bilirubin AST ALT Alkaline Phosphatase Troponin I 3.410 H* NT-Pro-B Natriuret Pep 94083 H Total Protein Albumin Globulin Albumin/Globulin Ratio Urine Color Urine Appearance Urine pH Ur Specific [place] Urine Protein Urine Glucose (UA) Urine Ketones Urine Occult Blood Urine Nitrate Urine Bilirubin Urine Urobilinogen Ur Leukocyte Esterase Urine RBC Urine WBC Ur Squamous Epith Cells Uric Acid Crystals Urine Bacteria Hyaline Casts Granular Casts WBC Casts Ur Culture Indicated? 02/24/23 02/24/23 04:30 05:30 WBC RBC Hgb Hct MCV MCH MCHC RDW Plt Count Sodium 139 Potassium 4.1 Chloride 112 H Carbon Dioxide 17 L BUN 95 H Creatinine 3.79 H Estimated GFR 15 L BUN/Creatinine Ratio 25.1 H Glucose 104 D Calcium 7.8 L Magnesium Total Bilirubin 0.5 AST 163 H ALT 336 H Alkaline Phosphatase 88 Troponin I 5.040 H* NT-Pro-B Natriuret Pep Total Protein 5.7 L Albumin 2.9 L Globulin 2.8 Albumin/Globulin Ratio 1.0 Urine Color Yellow Urine Appearance Clear Urine pH 5.0 Ur Specific [place] 1.020 Urine Protein 2+ H Urine Glucose (UA) Trace H Urine Ketones Negative Urine Occult Blood 3+ H Urine Nitrate Negative Urine Bilirubin Negative Urine Urobilinogen 0.2 Ur Leukocyte Esterase 1+ H Urine RBC 30-100/hpf H Urine WBC 10-30/hpf H Ur Squamous Epith Cells 0-1 /hpf Uric Acid Crystals Few H Urine Bacteria Few (2-10) H Hyaline Casts 1-5/lpf Granular Casts 1-5/lpf WBC Casts 0-1/lpf Ur Culture Indicated? Specimen cultured Exam Vital Signs (past 8 hours): - 02/24/23 03:00 02/24/23 03:00 02/24/23 03:00 Temperature Pulse Rate 125 H 126 H Respiratory Rate 18 16 Blood Pressure 112/69 112/65 Pulse Oximetry Oxygen Delivery Method Oxygen Flow Rate 0 02/24/23 03:30 02/24/23 03:30 02/24/23 04:00 Temperature 97.0 F L Pulse Rate 128 H Respiratory Rate 21 Blood Pressure 121/72 121/90 Pulse Oximetry Oxygen Delivery Method Oxygen Flow Rate 02/24/23 04:00 02/24/23 04:30 02/24/23 04:30 Temperature Pulse Rate 123 H 124 H Respiratory Rate 28 H 14 Blood Pressure 120/83 Pulse Oximetry 96 Oxygen Delivery Method Oxygen Flow Rate 02/24/23 03:00 02/24/23 05:00 02/24/23 05:00 Temperature Pulse Rate 124 H Respiratory Rate 26 H Blood Pressure 121/80 Pulse Oximetry Oxygen Delivery Method Room Air Oxygen Flow Rate 02/24/23 05:30 02/24/23 05:43 02/24/23 05:43 Temperature Pulse Rate 127 H 128 H Respiratory Rate 11 L 19 Blood Pressure 120/77 Pulse Oximetry Oxygen Delivery Method Oxygen Flow Rate 02/24/23 06:00 02/24/23 06:00 02/24/23 07:00 Temperature Pulse Rate 123 H Respiratory Rate 18 Blood Pressure 123/74 Pulse Oximetry Oxygen Delivery Method Room Air Oxygen Flow Rate 02/24/23 06:30 02/24/23 06:30 02/24/23 07:00 Temperature Pulse Rate 133 H Respiratory Rate 19 Blood Pressure 131/95 H 104/73 Pulse Oximetry Oxygen Delivery Method Oxygen Flow Rate 02/24/23 07:00 02/24/23 07:30 02/24/23 07:30 Temperature Pulse Rate 129 H 125 H Respiratory Rate 19 12 Blood Pressure 112/71 Pulse Oximetry Oxygen Delivery Method Oxygen Flow Rate 02/24/23 08:41 02/24/23 08:00 02/24/23 08:00 Temperature Pulse Rate 66 134 H Respiratory Rate 24 Blood Pressure 115/75 115/66 Pulse Oximetry Oxygen Delivery Method Oxygen Flow Rate 02/24/23 08:30 02/24/23 08:30 02/24/23 09:00 Temperature Pulse Rate 143 H 137 H Respiratory Rate 38 H 13 Blood Pressure 123/92 H Pulse Oximetry Oxygen Delivery Method Oxygen Flow Rate 02/24/23 09:30 02/24/23 09:45 Temperature 98.0 F Pulse Rate 69 Respiratory Rate 13 Blood Pressure Pulse Oximetry Oxygen Delivery Method Oxygen Flow Rate Fraction of Inspired Oxygen 45 Oxygen Delivery Method Room Air Oxygen Flow Rate 0 Quality TeleICU VTE Deep Vein Thrombosis/Pulmonary Embolism Present on Admission: No Assessment & Plan Assessment & Plan narrative: Assessment Paroxysmal afib with RVR NSTEMI COVID PNA acute on chronic kidney disease transaminases Plan NSTEMI: -oatient currently chest pain free -recent tropinin bump of 3 to 5 probably is demand ischemia from rapid afib -continue aspirin and metoprolol -already on anticoagulation Afib: -continue xarelto -since AFib better controlled, plan to transition from Amio io to PO Amio MAY PNA: -currently breathing comfortably on RA acute on chronic kidney disease and Rhabo: Cr and CK improving transaminases: AST and ALT are improving -continue to monitor LFTs CCT spent 50 min
--- NOTE | 2023-02-24 11:36 | P.DS_ITS ---
History of Present Illness History of Present Illness Date Patient Seen: 02/20/23 Time Patient Seen: 11:00 Chief complaint: GLF, unkn downtime Narrative: Yahir Stratton is a 86 yr old male with history of chronic kidney disease stage IV, Alzheimer's, coronary artery disease with prior bypass, AFIB and on Xarelto,HTN, prior NSTEMI who was brought to the ER after being found on the ground by his son. No additional history is known and the patient does not recall why he in in the emergency room at this time. Discussed with daughter and she is unclear as to presentation and quite shocked to hear patient has COVID. He denies any chest pain or shortness of breath today. No swelling in his feet or his legs. He has no abdominal pain, or nausea currently. In the emergency room, he was mildly tachycardic and severely hypoxic requiring heated high-flow to maintain O2 saturations above 90%. Laboratory evaluation revealed a mild leukocytosis with WBC 16.2 mild INR elevation, carbon dioxide of 7 and a lactate of over 12. Creatinine was 4.18 from a baseline of around 2. AST was 428, ALT was 244, total CK was markedly elevated at 21,599, initial troponin was 13.3 which down trended to 10.9[place] [address]. Pro- Calcitonin was elevated at 4.82. Glucose was 263. Lactate has improved with fluids, and blood gas showed improvement in his carbon dioxide as well to 14. Repeat labs ordered. He was admitted to the ICU for further management. Discussed with daughter severity of her father's presentation, and performed goals of care discussion. She would like limited measures including steroids, labs, fluids, antibiotics, diuresis. Not interested in transfer for higher level of care. Patient in DNR/DNI. She did express that should he worsen, they had been discussing hospice recently and would probably persue comfort measures. Discharge Providers Provider Date of admission: 02/20/23 12:46 Discharge Date: 02/24/23 Primary care physician: Rusty Ghotra MD Consults: 02/22/23 13:44 Consult to Occupational Therapy Evaluate & Treat Comment: Physician Instructions: Evaluate and treat Consult to Physical Therapy Evaluate & Treat Comment: Physician Instructions: Evaluate and Treat 02/23/23 19:24 Consult to Tele-rf microwave engineer Routine Comment: Consulting Provider: [employer] Reason for consultation: Business Employment Specialist services Has provider been notified: Yes 02/24/23 11:12 Consult to Home Health Routine Comment: Reason For Exam: Home Health upon Discharge Discharge provider: Wood Elaine DO Summary Hospital Course Discharge Diagnosis: 1. Atrial fibrillation with RVR -has been continued on metoprolol -likely went into RVR secondary to COVID and NSTEMI -heart rate was in 160s, now significantly improved with metoprolol IV -tried dilt drip but BP dropped, switched to amio -converted on IV amio then transitioned to po amio 200mg BID -increased home metop XL to 100mg daily 2. Rhabdomyolysis, acute with JOHNNY on CKD stage 4 - continue IV fluids today. CK improving to around 7k, continue to trend daily. - monitor UOP closely with owens. 3. Transaminase levels elevate -continue to trend daily ?-abdominal ultrasound without acute pathology or ductal dilatation. ?- continue to follow. 4. Probable NSTEMI ?- patient with previous NSTEMI and medical management recommended. ?- possible this represents demand, but patient is on anticoagulation and management will not change. ?- continue home anticoagulation with xarelto ?- no TTE ordered as discussed above. 5. Alzheimer's dementia ?- encourage daytime awakening, night rest. High risk for ICU delirium. ?- started seroquel 25 mg at bedtime. 6. HTN, chronic ?- hold home amlodipine, diuretic (chlorthalidone) in setting of sepsis. 7. CAD with Hx CABG. ?- asa statin therpay to continue along with xarelto. 8. Advanced care planning. ?- DNR / DNI per previous discussions - per admission note no escalation of care Hospital Course: Admitted for COVID, rhabdo, JOHNNY on CKD and elevated trop. Due to comorbidities he was treated medically for NSTEMI only. Given IVF for rhabdo and this improved. JOHNNY improving. Received decadron for COVID. Went into A-fib RVR so dilt drip started then switched to amio drip after BP dipped. Converted to NSR on amio and transitioned to po amio. Increased home metop. Had pyuria on UA, but denied urinary symptoms. Received 4 days of IV rocephin. Time Spent with Patient Time spent: Greater than 30 minutes Exam Vital Signs (past 8 hours): - 02/24/23 04:00 02/24/23 04:00 02/24/23 04:30 Temperature 97.0 F L Pulse Rate 123 H Respiratory Rate 28 H Blood Pressure 121/90 120/83 Pulse Oximetry 96 Oxygen Delivery Method 02/24/23 04:30 02/24/23 05:00 02/24/23 05:00 Temperature Pulse Rate 124 H 124 H Respiratory Rate 14 26 H Blood Pressure 121/80 Pulse Oximetry Oxygen Delivery Method 02/24/23 05:30 02/24/23 05:43 02/24/23 05:43 Temperature Pulse Rate 127 H 128 H Respiratory Rate 11 L 19 Blood Pressure 120/77 Pulse Oximetry Oxygen Delivery Method 02/24/23 06:00 02/24/23 06:00 02/24/23 07:00 Temperature Pulse Rate 123 H Respiratory Rate 18 Blood Pressure 123/74 Pulse Oximetry Oxygen Delivery Method Room Air 02/24/23 06:30 02/24/23 06:30 02/24/23 07:00 Temperature Pulse Rate 133 H Respiratory Rate 19 Blood Pressure 131/95 H 104/73 Pulse Oximetry Oxygen Delivery Method 02/24/23 07:00 02/24/23 07:30 02/24/23 07:30 Temperature Pulse Rate 129 H 125 H Respiratory Rate 19 12 Blood Pressure 112/71 Pulse Oximetry Oxygen Delivery Method 02/24/23 08:41 02/24/23 08:00 02/24/23 08:00 Temperature Pulse Rate 66 134 H Respiratory Rate 24 Blood Pressure 115/75 115/66 Pulse Oximetry Oxygen Delivery Method 02/24/23 08:30 02/24/23 08:30 02/24/23 09:00 Temperature Pulse Rate 143 H 137 H Respiratory Rate 38 H 13 Blood Pressure 123/92 H Pulse Oximetry Oxygen Delivery Method 02/24/23 09:30 02/24/23 09:45 Temperature 98.0 F Pulse Rate 69 Respiratory Rate 13 Blood Pressure Pulse Oximetry Oxygen Delivery Method Fraction of Inspired Oxygen 45 Oxygen Delivery Method Room Air Oxygen Flow Rate 0 Narrative Exam Narrative: General:?no acute distress Lungs:?diminished bilaterally but CTA B/l Cardio:?tachycardic. Abdomen: soft, nontender Extremities: warm and well perfused with no edema Objective Labs 02/24/23 04:30 02/24/23 04:30 Labs: Laboratory Results - last 24 hr 02/23/23 02/23/23 02/24/23 Unknown Unknown 04:30 WBC 25.0 H D 15.6 H RBC 4.63 4.21 L Hgb 12.6 L 11.6 L Hct 38.2 L 34.3 L MCV 82.6 81.4 MCH 27.2 27.6 MCHC 33.0 33.9 RDW 15.3 H 15.1 H Plt Count 188 139 L Sodium 138 Potassium 4.3 Chloride 108 H Carbon Dioxide 16 L BUN 86 H Creatinine 3.79 H Estimated GFR 15 L BUN/Creatinine Ratio 22.7 H Glucose 258 H D Calcium 7.8 L Magnesium 2.1 Total Bilirubin AST ALT Alkaline Phosphatase Troponin I 3.410 H* NT-Pro-B Natriuret Pep 53648 H Total Protein Albumin Globulin Albumin/Globulin Ratio Urine Color Urine Appearance Urine pH Ur Specific [place] Urine Protein Urine Glucose (UA) Urine Ketones Urine Occult Blood Urine Nitrate Urine Bilirubin Urine Urobilinogen Ur Leukocyte Esterase Urine RBC Urine WBC Ur Squamous Epith Cells Uric Acid Crystals Urine Bacteria Hyaline Casts Granular Casts WBC Casts Ur Culture Indicated? 02/24/23 02/24/23 04:30 05:30 WBC RBC Hgb Hct MCV MCH MCHC RDW Plt Count Sodium 139 Potassium 4.1 Chloride 112 H Carbon Dioxide 17 L BUN 95 H Creatinine 3.79 H Estimated GFR 15 L BUN/Creatinine Ratio 25.1 H Glucose 104 D Calcium 7.8 L Magnesium Total Bilirubin 0.5 AST 163 H ALT 336 H Alkaline Phosphatase 88 Troponin I 5.040 H* NT-Pro-B Natriuret Pep Total Protein 5.7 L Albumin 2.9 L Globulin 2.8 Albumin/Globulin Ratio 1.0 Urine Color Yellow Urine Appearance Clear Urine pH 5.0 Ur Specific [place] 1.020 Urine Protein 2+ H Urine Glucose (UA) Trace H Urine Ketones Negative Urine Occult Blood 3+ H Urine Nitrate Negative Urine Bilirubin Negative Urine Urobilinogen 0.2 Ur Leukocyte Esterase 1+ H Urine RBC 30-100/hpf H Urine WBC 10-30/hpf H Ur Squamous Epith Cells 0-1 /hpf Uric Acid Crystals Few H Urine Bacteria Few (2-10) H Hyaline Casts 1-5/lpf Granular Casts 1-5/lpf WBC Casts 0-1/lpf Ur Culture Indicated? 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 Your COVID was treated and your kidney function improved. We have increased your metoprolol and put you on amiodarone to better control your A- fib. Discharge orders & Medications Prescriptions: New amiodarone 200 mg Tablet 200 mg PO BIDWM Qty: 60 0RF Continued amlodipine 10 mg tablet 10 mg PO DAILY nitroglycerin 6.5 MG capsule, extended release 6.5 mg PO BID Qty: 0 chlorthalidone 25 mg Tablet 12.5 mg PO DAILY Qty: 30 0RF Xarelto 15 mg Tablet 15 mg PO QPM Rx Instructions: must administer with evening meal atorvastatin 40 mg tablet 40 mg PO BEDTIME Qty: 30 0RF Changed metoprolol succinate [Toprol XL] 50 mg tablet extended release 24 hr 100 mg PO DAILY Qty: 30 0RF Follow up/Referrals: Rusty Ghotra DO [Primary Care Provider] - 2 Weeks Visit Report/Discharge Packet Stand Alone Forms: Patient Portal/API, Stroke Signs & Symptoms Discharge Data Primary Care Provider: Rusty Ghotra Quality VTE Deep Vein Thrombosis/Pulmonary Embolism Present on Admission: No
--- NOTE | 2023-02-24 12:17 | CM.DPNOTE ---
DC Note Patient is discharged home today. Placed call to daughter Stacy to update. She plans on picking patient up and will pull up to the ER (daughter is COVID+) and will request that staff bring patient down to her vehicle. Updated that [facility] was referred for RN/PT/OT/MATHEMATICAL TECHNICIAN/ATHLETIC SCOUT and daughter agreeable to this plan. Updated MOY Blanca. Placed call to Jose Ramon at [facility] to update, faxed completed and signed F2F, order and Dc Summary completed. Plan: Discharge home w/family, in home care givers, [facility] JW
[2023-02-24] MEDS: INSULIN LISPRO 100 UNIT/ML 3ML VIAL SUBCUT (12:33)
[2023-02-28 21:39] LABS: CK-BB 0 % (0); CK-MB 3 % (0-3); CK-MM 94 % (97-100); Macro Type 1 3 % (Not Observed); Macro Type 2 0 % (Not Observed)
== END 2023-02-24 13:47 | disposition home or self-care (01) | DRG 871 ==
LOC: ED 10:46 → AC 12:46 → ICU 13:24
PROVIDERS: Internal Medicine; Internal Medicine Critical Care Medicine; Admitting Provider Internal Medicine; Emergency Provider Emergency Medicine; PCP Student in an Organized Health Care Education/Training Program; Referring Provider Emergency Medicine; Visit Provider Internal Medicine
DX: A41.9 Sepsis, unspecified organism (principal); I21.4 Non-ST elevation (NSTEMI) myocardial infarction; U07.1 COVID-19; J96.01 Acute respiratory failure with hypoxia; I48.20 Chronic atrial fibrillation, unspecified; E87.20 Acidosis, unspecified; M62.82 Rhabdomyolysis; N18.4 Chronic kidney disease, stage 4 (severe); N17.9 Acute kidney failure, unspecified; I25.10 Atherosclerotic heart disease of native coronary artery without angina pectoris; I25.2 Old myocardial infarction; G30.9 Alzheimer's disease, unspecified; F02.80 Dementia in other diseases classified elsewhere, unspecified severity, without behavioral disturbance, psychotic disturbance, mood disturbance, and anxiety; I12.9 Hypertensive chronic kidney disease with stage 1 through stage 4 chronic kidney disease, or unspecified chronic kidney disease; R65.20 Severe sepsis without septic shock; Z79.01 Long term (current) use of anticoagulants; Z95.1 Presence of aortocoronary bypass graft; Z87.891 Personal history of nicotine dependence; Z66 Do not resuscitate
CPT/HCPCS: 0241U; 36415; 36592; 36600; 70450; 71045; 72125; 76705; 80048; 80053; 81001; 82550; 82553; 82805; 82947; 82962; 83036; 83605; 83690; 83735; 83880; 84145; 84484; 85025; 85027; 85610; 85730; 87040; 87086; 87797; 93005; 94762; 96365; 96375; 99285; 99291; G0390; J0282; J0696; J1100; J1642; J1815; J2543